=== PATIENT | female | born 1960 | race Caucasian/White ===

== ENCOUNTER 2024-03-03 13:05 | Outpatient (OUT) | payer BC, SELFPAY ==
--- NOTE | 2024-03-03 13:00 | CA_ITS ---
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 PVR waveforms with delayed upstroke, blunted amplitude and loss of dicrotic notch in the LLE. Right: - no significant pressure gradient between cuffs - normal SIMRAN Left: - significant pressure gradient between the thigh and calf cuff - significant pressure gradient between the calf and DP cuff - abnormal SIMRAN and TBI Impression: - normal arterial evaluation of the right lower extremity, without hemodynamic impairment of the right lower extremity at rest. 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 (left SIMRAN 0.58) Electronically Signed On 03-03-2024 22:22:10 EDT by REMINGTON BLOOM
== END 2024-03-03 13:06 | disposition home or self-care (01) ==
LOC: CARD 13:05
PROVIDERS: PCP Nurse Practitioner; Visit Provider Student in an Organized Health Care Education/Training Program
DX: Z48.89 Encounter for other specified surgical aftercare (principal)
CPT/HCPCS: 93923

== ENCOUNTER 2024-04-08 08:10 | Outpatient (OUT) | payer BC, SELFPAY ==
--- NOTE | 2024-04-08 | XR_ITS ---
The [address] [address] Patient Name: BETO EM MRN: [id number] date: 1960 Sex: F Assigned Patient Location: Current Patient Location: Accession/Order Number: [id number] Exam Date: 04/08/2024 13:30 Report Date: 04/09/2024 07:54 At the request of: BRANDON FORD Procedure: XR foot LT min 3V PROCEDURE: XR foot LT min 3V COMPARISON: None. HISTORY: LEFT FOOT PAIN FINDINGS: BONES:No fracture, acute abnormality, or significant arthropathy. SOFT TISSUES:Negative. No visible soft tissue swelling. EFFUSION:None visible. OTHER: Negative. XR/XR foot LT min 3V IMPRESSION: No acute radiographic abnormality Electronically authenticated by: EARL BENITEZ Date: 04/09/2024 07:54
== END 2024-04-08 08:11 | disposition home or self-care (01) ==
LOC: EC 08:11
PROVIDERS: PCP Nurse Practitioner; Visit Provider Physician Assistant
DX: M79.672 Pain in left foot (principal)
CPT/HCPCS: 73630

== ENCOUNTER 2024-08-03 07:06 | Outpatient (RCR) | payer BC, SELFPAY ==
--- NOTE | 2024-07-02 10:37 | PC.NURSE ---
Cardiac Rehab Orientation The following information was reviewed with the patient during Orientation: [ x] 1. Program rights and responsibilities [ x] 2. Attendance Policy [ x 3. Patients insurance coverage and copayment [ x] 4. Patients current medication list, and purpose for medications [ x] 5. Patients Qualifying diagnosis and procedure history [x ] 6. Patient health history Patients completed the following forms during Orientation: [ x] 1. Knowledge Test [ x] 2. PHQ 9 [x ] 3. SF 36 [x ] 4. Rate your plate [ ] 5. COPD Assessment [ ] 6. Tobacco Use and Dependence Questionnaire Additional Comments: Patient was informed of all of the following information as listed above. She is scheduled for her first visit beginning next week. Fax was sent to her provider updating them of her attendance to orientation.
--- NOTE | 2024-07-02 12:14 | CR1_ITS ---
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
--- NOTE | 2024-07-06 12:08 | CR1_ITS ---
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
--- NOTE | 2024-07-29 12:53 | CR1_ITS ---
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
--- NOTE | 2024-08-05 07:47 | CR1_ITS ---
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
== END 2024-08-05 07:48 | disposition home or self-care (01) ==
LOC: CR 07:06
PROVIDERS: PCP Family Medicine
DX: Z98.61 Coronary angioplasty status (principal)
CPT/HCPCS: 93798

== ENCOUNTER 2025-01-05 09:44 | Outpatient (OUT) | payer BC, SELFPAY ==
[2025-01-05 10:13] LABS: Chol HDL Ratio 1.8; Cholesterol 185 mg/dL (<=200); HDL Cholesterol 101 mg/dL (40-60); Triglycerides 50 mg/dL (<=150)
== END 2025-01-05 09:45 | disposition home or self-care (01) ==
LOC: LAB 09:44
PROVIDERS: PCP Family Medicine; Visit Provider Internal Medicine Cardiovascular Disease
DX: I25.10 Atherosclerotic heart disease of native coronary artery without angina pectoris (principal)
CPT/HCPCS: 36415; 80061

== ENCOUNTER 2025-02-14 16:06 | Outpatient (OUT) | payer BC, SELFPAY ==
[2025-02-14 16:27] LABS: Basophils Percent Auto 0.6 % (0.2-2.0); Eosinophils Absolute Auto 0.3 10^3/uL (0.0-0.7); Eosinophils Percent Auto 4.5 % (0.9-7.0); Hematocrit 30.4 % (36.0-48.0); Hemoglobin 9.4 g/dL (12.0-16.0); Immature Granulocytes Abs Auto 0.01 10^3/uL (0.00-0.03); Immature Granulocytes Pct Auto 0.2 % (0.0-0.5); Lymphocytes Absolute Auto 1.6 10^3/uL (1.2-3.8); Lymphocytes Percent Auto 25.3 % (20.5-60.0); Mean Corpuscular HGB Conc 30.9 g/dL (29.9-35.2); Mean Corpuscular Hemoglobin 25.6 pg (26.7-34.0); Mean Corpuscular Volume 82.8 fL (81.0-99.0); Mean Platelet Volume 9.2 fL (9.5-13.5); Monocytes Absolute Auto 0.7 10^3/uL (0.3-0.8); Monocytes Percent Auto 11.4 % (1.7-12.0); Neutrophils Absolute Auto 3.7 10^3/uL (1.4-6.5); Platelet Count 285 10^3/uL (150-450); Red Blood Count 3.67 10^6/uL (4.20-5.40); Red Cell Distribution Width 17.8 % (11.0-15.0); White Blood Count 6.4 10^3/uL (4.0-11.0)
[2025-02-14 16:42] LABS: Anion Gap 14.9; BUN Creatinine Ratio 26.7; Calcium 9.3 mg/dL (8.5-10.1); Carbon Dioxide 22.2 mmol/L (21.0-32.0); Chloride 102 mmol/L (98-107); Estimated GFR (African America >60 (>=60 mL/min/1.73m^2); Estimated GFR (Non-African Ame >60 (>=60 mL/min/1.73m^2); Glucose 87 mg/dL (74-106); Potassium 4.1 mmol/L (3.5-5.1); Sodium 135 mmol/L (136-145)
== END 2025-02-14 16:07 | disposition home or self-care (01) ==
PROVIDERS: PCP Family Medicine
DX: E78.5 Hyperlipidemia, unspecified (principal); I10 Essential (primary) hypertension; Z95.5 Presence of coronary angioplasty implant and graft
CPT/HCPCS: 36415; 80048; 85025

== ENCOUNTER 2025-02-18 21:42 | Emergency (ER) | payer BC, SELFPAY ==
--- OUTSIDE RECORDS SUMMARY | 2025-02-15 07:23 | XMS_ITS ---
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 Operator Name Role Phone RAIMUNDO CHOI Attending Unavailable BRII MARCH Referring Unavailable JANI NGUYEN Attending Unavailable RAIMUNDO CHOI Referring Unavailable JANI NGUYEN Attending Unavailable Kole, FELISA Lomas Attending Unavailable Kole, FELISA Lomas Attending Unavailable KRISTEL VASQUES Attending Unavailable Kole, FELISA Lomas Attending Unavailable Jani Nguyen S Admitting Unavailable Jani Nguyen Attending Unavailable Jani Nguyen S Referring Unavailable Napoleon Mason Attending Unavaila Napoleon Stauffer Referring Unavaila Napoleon Stauffer Admitting Unavaila ble Napoleon Mason Admitting Unavaila ble Napoleon Mason Consulting Unavaila Napoleon Stauffer Attending Unavaila Napoleon Stauffer Referring Unavaila Napoleon Stauffer Consulting Unavaila Napoleon Stauffer Consulting Unavaila Napoleon Stauffer Attending Unavaila Napoleon Stauffer Admitting Unavaila ble Napoleon Mason Attending Unavaila Napoleon Stauffer Admitting Unavaila ble Napoleon Mason Admitting Unavaila ble Kole, FELISA Lomas Referring Unavailable Christofferson, Napoleon D. Attending Unavaila ble NONE, XXXX Referring Unavailable MD Gaetano Abraham Attending Unavailable NONE, XXXX Referring Unavailable KENNETH Abreu Admitting Unavailable KENNETH Abreu Attending Unavailable NONE, XXXX Referring Unavailable MD Raza Morel Admitting Unavailable MD Raza Morel Attending Unavailable MD Raza Morel Admitting Unavailable MD Raza Morel Attending Unavailable MD Raza Morel Referring Unavailable PROBLEMS No Problem Records Found PROCEDURES No Procedure Records Found RESULTS DISCHARGE INSTRUCTIONS Observed: 025 7:23 AM Status: F Source: [facility] Discharge Instructions MARIA EM :1960 Visit Date:02/15/2025 Inpatient Discharge Instructions Your Care Team Admitting Physician - Raza Morel MD Referring Physician - Raza Morel MD Reason for Your Visit I25.10, I10, Z95.5 This Is Your Medications List acetaminophen (Tylenol 325 mg Tab) albuterol (Albuterol (Eqv-Proventil HFA) 90 mcg/inh inhalation aerosol) aspirin (aspirin 81 mg Oral EC Tab) atorvastatin (atorvastatin 80 mg Tab) brompheniramine/dextromethorphan/PSE (Bromfed DM oral syrup) clopidogrel (clopidogrel 75 mg Tab) diltiazem (DilTIAZem (Eqv-Cardizem CD) 120 mg/24 hours oral capsule, extended release) fluticasone nasal (Xhance 93 mcg/inh nasal spray) losartan (losartan 25 mg Tab) metoprolol (Lopressor 25 mg oral tablet) montelukast (montelukast 10 mg Tab) Procedure History PCI - Percutaneous coronary intervention (02/15/2025), Excision of lesion of skin (05/26/2024), Cardiac catheterization, left heart (04/23/2024), PCI - Percutaneous coronary intervention (04/23/2024), Angiography of artery of left lower extremity (12/29/2023), section (04/12/1993). Discharge Vitals Height 167 cm Height 167 cm Weight 58 kg Weight 58 kg BMI 20.8 What to do next Previously Scheduled Follow-Up Appointments 2024 3:45 PM EDT With: Maria Teresa YE, Raza Croft [facility] New Follow Up Appointments after Discharge Follow Up with Raza Morel When: 03/03/2025 03:45 PM EDT Comments: Appointment has already been scheduled Please call if you need to reschedule Where: [address] [place] [address] [place] [address] [phone] [facility] (1) Follow Up with Sonja Sharif When: In 0 days Medications What How Much When Why Instructions Next Dose Unchanged acetaminophen (Tylenol 325 mg Tab) 500 Milligram By Mouth Every 4 hours as needed for Pain/Fever Unchanged albuterol (Albuterol (Eqv-Proventil HFA) 90 mcg/ inh inhalation aerosol) See instructions INHALE 2 PUFFS BY MOUTH EVERY 4 HOURS NEEDED Unchanged aspirin (aspirin 81 mg Oral EC Tab) 1 Tablets By Mouth Every day Unchanged atorvastatin (atorvastatin 80 mg Tab) 1 Tablets By Mouth Every day TAKE ONE TABLET BY MOUTH DAILY Unchanged brompheniramine/ dextromethorphan/ PSE (Bromfed DM oral syrup) 5 Milliliter By Mouth 4 times a day as needed for for cough and congestion Sinusitis Smoking trying to quit BMI 21.0-21.9, adult Unchanged clopidogrel (clopidogrel 75 mg Tab) 1 Tablets By Mouth Every day TAKE ONE TABLET BY MOUTH DAILY Unchanged diltiazem (DilTIAZem (Eqv-Cardizem CD) 120 mg/ 24 hours oral capsule, extended release) See instructions TAKE ONE CAPSULE BY MOUTH ONCE DAILY Unchanged fluticasone nasal (Xhance 93 mcg/ inh nasal spray) 2 Sprays Nasal Inhalation 2 times a day INSTILL 2 SPRAYS (1 SPRAY IN EACH NOSTRIL) TWICE A DAY FOR 30 DAYS Unchanged losartan (losartan 25 mg Tab) 1 Tablets By Mouth Every day TAKE ONE TABLET BY MOUTH ONCE DAILY Unchanged metoprolol (Lopressor 25 mg oral tablet) 1 Tablets By Mouth 2 times a day TAKE ONE TABLET BY MOUTH TWICE A DAY Unchanged montelukast (montelukast 10 mg Tab) 1 Tablets By Mouth At bedtime TAKE ONE TABLET BY MOUTH ONCE DAILY Allergies No Known Medication Allergies Problems Ongoing - Any problem that you are currently receiving treatment for. Changes in skin texture Essential hypertension Fatigue Hyperlipidemia Left foot pain Left shoulder pain Screening for thyroid disorder Severe claudication Sinusitis Smoker Smoking trying to quit Devices Implanted/Removed This Visit Notice: You have devices implanted this visit that may not be MRI compatible. Implanted PCI of RCA Right Coronary Artery Radhancshilo Mullen 02/15/2025 Body Site Undefined Radhancshilo Mullen 02/15/2025 [employer] [place], [place] Cardiovascular PCI DISCHARGE INSTRUCTIONS Diet: ??? Resume pre-procedure diet. ??? Increase water intake the next 2 days to flush dye out of the body. Activity: If radial access: ??? Limit your activity today. Do not operate a vehicle, machinery or power tools. ??? NO LIFTING OVER 3 POUNDS for 3 days. ??? Do not bend your wrist for 24 hours. ??? May resume driving in 24 hours. ??? Let pain/discomfort guide your activity. If you are having pain, stop. ??? No sexual activity for 1 week. ??? Return to the Emergency Room if you have trouble breathing, walking or nausea and vomiting. Medications: ??? Resume pre-procedure medication, unless otherwise directed. ??? Minimal pain, soreness and/or discomfort is expected. ??? If you are prescribed an aspirin and/or antiplatelet (such as Plavix, Brilinta or Effient) do NOT stop taking these medications for any reason without talking to your packaging line operator Site Care: ??? Do not remove dressing for 24 hours unless it becomes saturated, then replace. ??? Keep site clean and dry; inspect site daily. ??? Do not use any lotions, powders, or ointments at the groin or wrist site for 1 week. ??? May shower 24 hours after the procedure. Clean site with soap and water. Pat dry and apply band aid. No tub baths, swimming or hot tubs for 3 days. Post Procedure: ??? Soreness and tenderness to the site can last up to one week. ??? Bruising may occur to site. ??? A responsible adult should be with you for the first 24 hours after you arrive home. ??? Keep follow-up appointment. ??? Carry your stent card with you at all times. This provides information about your heart disease for any doctor who cares for you. ??? No smoking for 24 hours as it increases the risk of developing blood clots. ??? If you are interested in smoking cessation, contact [facility] [facility] [place] [phone], ext. [phone]. ??? In the event you are unable to reach your physician, please call [facility] at [phone] and the boat dock operator will assist you. Seek Medicare Care for: ??? Bleeding: Apply continuous pressure to the site and Call 911. ??? Should the arm or leg become cold, numb, blue or white call your physician immediately. ??? Signs of infection are redness, warmth, swelling, getting more sore, colored drainage, fever or chills ??? Chest pain ??? Blood in your urine or stool ??? Black tarry stools Common Emergency Awareness Tips IS IT A STROKE? Act FAST and Check for these signs: FACE Does the face look uneven? ARM Does one arm drift down? SPEECH Does their speech sound strange? TIME Call at any sign of stroke Heart Attack Signs Chest discomfort: Most heart attacks involve discomfort in the center of the chest and lasts more than a few minutes, or goes away and comes back. It can feel like uncomfortable pressure, squeezing, fullness or pain. Discomfort in upper body: Symptoms can include pain or discomfort in one or both arms, back, neck, jaw or stomach. Shortness of breath: With or without discomfort. Other signs: Breaking out in a cold sweat, nausea, or lightheaded. Remember, MINUTES DO MATTER. If you experience any of these heart attack warning signs, call to get immediate medical attention! Patient Survey You may receive a survey in the mail asking you about your stay with us. We want to hear from you, please share your experience with us by completing your survey. Thank you for choosing [facility]. Leodan Award Nomination The LEODAN (Diseases Attacking the Immune SYstem) Award is an international recognition program that honors and celebrates the skillful, compassionate care nurses provide every day. Anyone who experiences or observes amazing care being provided by a nurse is encouraged to submit a nomination. To nominate your nurse, use your smart phone to scan the QR code below. Patient Portal You may access all of your results and other medical record information on our secure patient portal. If you are not signed up for this yet, please contact [employer] Information Management at [phone] to get signed up today. Patient Name: MARIA EM I have received these discharge instructions and my questions have been answered. Patient/Car Seat Coverer Name: Patient/Car Seat Coverer Signature: Relationship to Patient: Witness Name/Signature: Date: Result Comment: Electronical ly Signed By: Bandar SCHROEDER, Cardio, Giana\.br\Date and Time Signed: 02/18/25 11:43 EDT DISCHARGE INSTRUCTIONS Observed: 025 7:23 AM Status: UNK Source: [facility] Discharge Instructions MAIRA EM :1960 Visit Date:02/15/2025 Inpatient Discharge Instructions Your Care Team Admitting Physician - Raza Morel MD Referring Physician - Raza Morel MD Reason for Your Visit I25.10, I10, Z95.5 This Is Your Medications List acetaminophen (Tylenol 325 mg Tab) albuterol (Albuterol (Eqv-Proventil HFA) 90 mcg/inh inhalation aerosol) aspirin (aspirin 81 mg Oral EC Tab) atorvastatin (atorvastatin 80 mg Tab) brompheniramine/dextromethorphan/PSE (Bromfed DM oral syrup) clopidogrel (clopidogrel 75 mg Tab) diltiazem (DilTIAZem (Eqv-Cardizem CD) 120 mg/24 hours oral capsule, extended release) fluticasone nasal (Xhance 93 mcg/inh nasal spray) losartan (losartan 25 mg Tab) metoprolol (Lopressor 25 mg oral tablet) montelukast (montelukast 10 mg Tab) Procedure History PCI - Percutaneous coronary intervention (02/15/2025), Excision of lesion of skin (05/26/2024), Cardiac catheterization, left heart (04/23/2024), PCI - Percutaneous coronary intervention (04/23/2024), Angiography of artery of left lower extremity (12/29/2023), section (04/12/1993). Discharge Vitals Height 167 cm Height 167 cm Weight 58 kg Weight 58 kg BMI 20.8 What to do next Previously Scheduled Follow-Up Appointments 2024 3:45 PM EDT With: Maria Teresa YE, Raza Croft Where: [facility] New Follow Up Appointments after Discharge Follow Up with Raza Morel When: 03/03/2025 03:45 PM EDT Comments: Appointment has already been scheduled Please call if you need to reschedule Where: [address] [place] [phone] [facility] (1) Follow Up with Sonja Sharif When: In 0 days Medications What How Much When Why Instructions Next Dose Unchanged acetaminophen (Tylenol 325 mg Tab) 500 Milligram By Mouth Every 4 hours as needed for Pain/Fever Unchanged albuterol (Albuterol (Eqv-Proventil HFA) 90 mcg/ inh inhalation aerosol) See instructions INHALE 2 PUFFS BY MOUTH EVERY 4 HOURS NEEDED Unchanged aspirin (aspirin 81 mg Oral EC Tab) 1 Tablets By Mouth Every day Unchanged atorvastatin (atorvastatin 80 mg Tab) 1 Tablets By Mouth Every day TAKE ONE TABLET BY MOUTH DAILY Unchanged brompheniramine/ dextromethorphan/ PSE (Bromfed DM oral syrup) 5 Milliliter By Mouth 4 times a day as needed for for cough and congestion Sinusitis Smoking trying to quit BMI 21.0-21.9, adult Unchanged clopidogrel (clopidogrel 75 mg Tab) 1 Tablets By Mouth Every day TAKE ONE TABLET BY MOUTH DAILY Unchanged diltiazem (DilTIAZem (Eqv-Cardizem CD) 120 mg/ 24 hours oral capsule, extended release) See instructions TAKE ONE CAPSULE BY MOUTH ONCE DAILY Unchanged fluticasone nasal (Xhance 93 mcg/ inh nasal spray) 2 Sprays Nasal Inhalation 2 times a day INSTILL 2 SPRAYS (1 SPRAY IN EACH NOSTRIL) TWICE A DAY FOR 30 DAYS Unchanged losartan (losartan 25 mg Tab) 1 Tablets By Mouth Every day TAKE ONE TABLET BY MOUTH ONCE DAILY Unchanged metoprolol (Lopressor 25 mg oral tablet) 1 Tablets By Mouth 2 times a day TAKE ONE TABLET BY MOUTH TWICE A DAY Unchanged montelukast (montelukast 10 mg Tab) 1 Tablets By Mouth At bedtime TAKE ONE TABLET BY MOUTH ONCE DAILY Allergies No Known Medication Allergies Problems Ongoing - Any problem that you are currently receiving treatment for. Changes in skin texture Essential hypertension Fatigue Hyperlipidemia Left foot pain Left shoulder pain Screening for thyroid disorder Severe claudication Sinusitis Smoker Smoking trying to quit Devices Implanted/Removed This Visit Notice: You have devices implanted this visit that may not be MRI compatible. Implanted PCI of RCA Right Coronary Artery [employer] 02/15/2025 Body Site Undefined [employer]ience [employer] 02/15/2025 [employer] [place], [place] Cardiovascular PCI DISCHARGE INSTRUCTIONS Diet: ??? Resume pre-procedure diet. ??? Increase water intake the next 2 days to flush dye out of the body. Activity: If radial access: ??? Limit your activity today. Do not operate a vehicle, machinery or power tools. ??? NO LIFTING OVER 3 POUNDS for 3 days. ??? Do not bend your wrist for 24 hours. ??? May resume driving in 24 hours. ??? Let pain/discomfort guide your activity. If you are having pain, stop. ??? No sexual activity for 1 week. ??? Return to the Emergency Room if you have trouble breathing, walking or nausea and vomiting. Medications: ??? Resume pre-procedure medication, unless otherwise directed. ??? Minimal pain, soreness and/or discomfort is expected. ??? If you are prescribed an aspirin and/or antiplatelet (such as Plavix, Brilinta or Effient) do NOT stop taking these medications for any reason without talking to your packaging line operator Site Care: ??? Do not remove dressing for 24 hours unless it becomes saturated, then replace. ??? Keep site clean and dry; inspect site daily. ??? Do not use any lotions, powders, or ointments at the groin or wrist site for 1 week. ??? May shower 24 hours after the procedure. Clean site with soap and water. Pat dry and apply band aid. No tub baths, swimming or hot tubs for 3 days. Post Procedure: ??? Soreness and tenderness to the site can last up to one week. ??? Bruising may occur to site. ??? A responsible adult should be with you for the first 24 hours after you arrive home. ??? Keep follow-up appointment. ??? Carry your stent card with you at all times. This provides information about your heart disease for any doctor who cares for you. ??? No smoking for 24 hours as it increases the risk of developing blood clots. ??? If you are interested in smoking cessation, contact [facility] [place] [phone], ext. [phone]. ??? In the event you are unable to reach your physician, please call [facility] at [phone] and the boat dock operator will assist you. Seek Medicare Care for: ??? Bleeding: Apply continuous pressure to the site and Call 911. ??? Should the arm or leg become cold, numb, blue or white call your physician immediately. ??? Signs of infection are redness, warmth, swelling, getting more sore, colored drainage, fever or chills ??? Chest pain ??? Blood in your urine or stool ??? Black tarry stools Common Emergency Awareness Tips IS IT A STROKE? Act FAST and Check for these signs: FACE Does the face look uneven? ARM Does one arm drift down? SPEECH Does their speech sound strange? TIME Call at any sign of stroke Heart Attack Signs Chest discomfort: Most heart attacks involve discomfort in the center of the chest and lasts more than a few minutes, or goes away and comes back. It can feel like uncomfortable pressure, squeezing, fullness or pain. Discomfort in upper body: Symptoms can include pain or discomfort in one or both arms, back, neck, jaw or stomach. Shortness of breath: With or without discomfort. Other signs: Breaking out in a cold sweat, nausea, or lightheaded. Remember, MINUTES DO MATTER. If you experience any of these heart attack warning signs, call to get immediate medical attention! Patient Survey You may receive a survey in the mail asking you about your stay with us. We want to hear from you, please share your experience with us by completing your survey. Thank you for choosing [facility]. Leodan Award Nomination The LEODAN (Diseases Attacking the Immune SYstem) Award is an international recognition program that honors and celebrates the skillful, compassionate care nurses provide every day. Anyone who experiences or observes amazing care being provided by a nurse is encouraged to submit a nomination. To nominate your nurse, use your smart phone to scan the QR code below. Patient Portal You may access all of your results and other medical record information on our secure patient portal. If you are not signed up for this yet, please contact [employer] at [phone] to get signed up today. Patient Name: MARIA EM I have received these discharge instructions and my questions have been answered. Patient/Car Seat Coverer Name: Patient/Car Seat Coverer Signature: Relationship to Patient: Witness Name/Signature: Date: Result Comment: Electronical ly Signed By: Bandar SCHROEDER, Cardio, Giana\.br\Date and Time Signed: 02/15/25 14:17 EDT Other Comment: duplicated OPERATIVE REPORT Observed: 02/15/2025 7:23 AM Status: F Source: [facility] Operative Report Left heart catheterization procedure report DATE OF PROCEDURE: February 15, 2025 PLATFORM MATERIAL HANDLING SUPERVISOR Raza Morel MD [facility] FSC[facility] INDICATION: Exertional fatigue; history LAD PCI was due to have staged PCI of right coronary artery now back 1 year later BRIEF HISTORY: 64-year-old female chronic smoker hypertension history of percutaneous Rx LAD with residual right coronary disease high-grade back for staged intervention has had progressive intermittent fatigue PROCEDURE(S) PERFORMED: Left Heart Catheterization Selective Coronary Angiography Moderate Sedation PRE-PROCEDURAL INFORMED CONSENT: The procedure and conscious sedation were discussed in detail with the patient/next of kin/durable power of including the indications, expected outcomes, potential treatment options based upon the results, alternative treatment options and benefits, risks and possible complications associated with the procedure. The patient/next of kin/durable power of expressed an understanding of the information provided and willingness to proceed. Signed, informed consent for the procedure was obtained for all of the above. DESCRIPTION OF THE PROCEDURE: In the postabsorptive state, the patient was brought to the Adult Cardiac Counseling Aide and placed on the table. The planned puncture sites/areas were prepped and draped in usual sterile fashion and a safety time-out was performed. Moderate Sedation was given by the Cardiac Counseling Aide RN. RIGHT RADIAL ARTERY ACCESS: The puncture site was infiltrated with 1% lidocaine. The modified Seldinger technique was performed to access the right radial artery using a 21G needle radial access kit. A wire was threaded into the radial artery followed by upsizing to a 5/6F slender 10cm sheath. Verapamil 2.5 mg was administered into the sheath. The sheath was then flushed with heparinized saline and IV UFH was administered via peripheral IV by the engineering lab technician RN after the catheter crossed into the ascending aorta. Selective left and right coronary artery angiography : Under fluoroscopic guidance, a 6 [place] diagnostic catheter was then advanced over the 0.035 260cm J- tipped guidewire to the level of the aortic valve to engage the left coronary artery. Multiple orthogonal images were obtained. The JR4 diagnostic catheter was then be used to selectively engage the RCA ostium and angiographic images under multiple projections were obtained. 5 F pigtail diagnostic catheter was advanced over the guidewire across the Aortic valve and into the left ventricle. Hemodynamic measurements were then obtained. Left ventriculography was performed. The pigtail catheter was then pulled back into the ascending aorta for assessment of LV-Ao gradient. The procedure was concluded by removal of all the catheters, wires and sheaths. Accesses were managed as outlined below. No immediate complications COMPLICATIONS: None ESTIMATED BLOOD LOSS: <50cc CONTRAST ADMINISTERED: Please see Adult Cardiac Counseling Aide Log for further details FINDINGS: SELECTIVE CORONARY ANGIOGRAPHY: Right dominant System Left Main: Moderately calcified no atherosclerotic obstructive coronary disease seen LAD: Moderate proximal mid left anterior descending calcification widely patent LAD stent proximally. D1: 30% ostial narrowing LCx: 20% proximal left circumflex atherosclerosis OM1: No angiographically visible disease Ramus Intermedius: Small vessel patent RCA: 80% proximal right coronary stenosis hazy eccentric plaque in the mid right coronary artery of at least 80%, both are sites for intervention today. rPDA: Moderate calcification no obstructive disease noted rPLB: No obstructive disease noted LEFT HEART CATHETERIZATION: LVEDP: 17 mmHg, consistent with noncompliant left ventricle LV EJECTION FRACTION and WALL MOTION: In the PINTO projection estimated left ventricular ejection fraction there are no regional wall motion abnormalities seen. There is no mitral regurgitation seen. There is no mitral regurgitation seen. There is no aortic stenosis noted on pullback from left ventricle to aorta. ACCESS MANAGEMENT: Primary: Right Radial Artery: Vasc Band; successful hemostasis achieved. Interventional report: A 6 [place] JR guiding catheter placed the ostium of the right coronary artery. The patient received 4000's of IV heparin. She has been taking her daily Plavix. There are no missed doses. She received full dose aspirin. ACT was maintained R around 250 ms at all times. I utilized 182 cm whisper wire to cross the proximal mid right coronary stenoses. We predilated the mid and proximal right coronary stenoses with a 3.0 x 15 mm Emerge balloon at 12 timbo for 30 seconds x 2 in the mid and proximal vessel. There appears to be Dissection nonflow limiting in the mid right coronary artery and haziness at the proximal right coronary stenosis site again the right coronary artery is heavily calcified in its proximal mid and distal portions. She is a heavy smoker. Next we stented the mid right coronary artery with a 3.0 x 18 mm Xience stent at 12 timbo for 30 seconds. This was postdilated in the usual fashion. The proximal right coronary artery was stented with a 3.0 x 12 mm Xience stent at 12 timbo for 30 seconds. We then posted the proximal right coronary stent with a 3.25 x 12 mm emerge NC balloon at 20 timbo for 30 seconds x 1. Subsequent angiography revealed excellent PARUL grade III flow at both sites of intervention however there appeared to be some dye streaming artifact proximally with lesion noted posterior to the stent. Intravascular ultrasound was deployed to further evaluate stent expansion in the proximal right coronary artery. Intravascular ultrasound revealed well apposed stent with heavy calcification and plaque burden behind the stent in the proximal right coronary artery. There is no dissection noted. CONCLUSIONS: 1. elevated left ventricular end-diastolic pressure consistent with noncompliant left ventricle 2. Hypertension 3. Successful stenting of the mid right coronary artery with a 3.0 x 18 mm Xience stent 4. Successful intravascular stenting of the proximal right coronary artery with 3.0 x 18 mm Xience stent postdilated to 3.25 mm. Well apposed stent proximally with no dissection by IVUS. RECOMMENDATIONS: Guideline directed medical therapy aspirin lifelong statin lifelong angiotensin receptor blockade as blood pressure allows smoking cessation counseling has been offered and will reinforce in the outpatient setting Standard post-cath management as per hospital protocol Cardiovascular Risk Factor modification Result Comment: Electronical ly Signed By: Maria Teresa YE, Raza Pan.br\Date and Time Signed: 02/15/25 10:16 EDT PROGRESS NOTE-PHYSICIAN Observed: 2024 7:23 AM Status: F Source: [facility] Progress Note-Physician Airway Assessment: Class II: Visualization of the soft palate, fauces, uvula Airway Abnormalities: none ASA Classification: ASA 2: A patient with mild systemic disease Risks/Benefits of IV Sedation: Have been explained IV Sedation Plan: Patient agrees to IV sedation plan_ Result Comment: Electronical ly Signed By: Maria Teresa YE, Raza Milian\Date and Time Signed: 02/15/25 08:15 EDT HEART AND VASCULAR OFFICE/CLINIC NOTE Observed: 02/07/2025 1:46 PM Status: F Source: [facility] Heart and Vascular Office/ inic Note Chief Complaint 4 month follow up HLD, HTN, CAD History of Present Illness Patient is a very pleasant 64-year-old chronic smoker with a history of LAD stenosis which has been stented x 2 she had residual 90% stenosis of her proximal right coronary artery there was talk about 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 Risks and benefits of heart catheterization were explained to the patient and the patient agreed freely to proceed. These risks include stroke heart attack kidney dysfunction which can need to be temporary or permanent from the contrast used. Review of Systems Constitutional: no fever, no sweats, no weakness Skin: no rash, no lesions, nobruising/petechiae ENMT: no sore throat, no congestion, no hoarseness Respiratory: no shortness of breath, no cough, no orthopnea, no wheezing Cardiovascular: no chest pain, no palpitations, no edema Gastrointestinal: no nausea, no vomiting, no diarrhea, no GI bleeding Genitourinary: no anuria/oliguria no hematuria Musculoskeletal: no back pain, no trauma Neurologic: no headache, no dizziness, no numbness, no weakness Psychiatric: no sleeping problems, no irritability, no anxiety/depression. Heme/Lymph: no bleeding tendency, no bruising tendency Allergy/Immunologic: no recurrent infections, no impaired immunity Additional ROS info: Except as noted in the above Review of Systems and in the History of Present Illness all other systems have been reviewed and are negative or noncontributory. Physical Exam Vitals & Measurements HR: 69(Peripheral) RR: 17 BP: 150/77 SpO2: 99% General: alert, no acute distress Skin: warm, dry intact Head: atraumatic, normocephalic Neck: Trachea midline, no JVD, no bruit Eye: normal conjunctiva, sclera clear ENMT: oral mucosa moist Cardiovascular: regular rate and rhythm, nomurmur normal peripheral perfusion Respiratory: Lungs CTA, respirations non labored Chest wall: no deformity. Gastrointestinal: soft, non distended, no tenderness, no guarding. Back: No tenderness, Normal ROM, Normal alignment. Extremities: no edema, no deformity, no trauma Neurological: oriented x 4, LOC appropriate for agesensation equal & normal bilaterally, speech normal Psychiatric: cooperative, affect appropriate for age, normal judgement, normal psychiatric thoughts. Assessment/Plan 1. Essential hypertension (I10: Essential (primary) hypertension) 2. Hyperlipidemia (E78.5: Hyperlipidemia, unspecified) 3. Status post insertion of drug-eluting stent into left anterior descending (LAD) artery (Z95.5: Presence of coronary angioplasty implant and graft) Residual high-grade disease proximal right coronary artery; staged PCI of right coronary artery. Smoking cessation counseling offered to the patient. Follow-up No qualifying data available Problem List/Past Medical History Ongoing Changes in skin texture Essential hypertension Fatigue Hyperlipidemia Left foot pain Left shoulder pain Screening for thyroid disorder Severe claudication Sinusitis Smoker Smoking trying to quit Historical No qualifying data Procedure/Surgical History Excision of lesion of skin (05/26/2024), Cardiac catheterization, left heart (04/23/2024), PCI - Percutaneous coronary intervention (04/23/2024), Angiography of artery of left lower extremity (12/29/2023), section (04/12/1993). Medications Albuterol (Eqv-Proventil HFA) 90 mcg/inh inhalation aerosol, See Instructions aspirin 81 mg Oral EC Tab, 81 mg= 1 tab(s), Oral, Daily, 3 refills atorvastatin 80 mg Tab, 80 mg= 1 tab(s), Oral, Daily, 3 refills Bromfed DM oral syrup, 5 mL, Oral, QID, PRN clopidogrel 75 mg Tab, 75 mg= 1 tab(s), Oral, Daily, 1 refills DilTIAZem (Eqv-Cardizem CD) 120 mg/24 hours oral capsule, extended release, See Instructions Lopressor 25 mg oral tablet, 25 mg= 1 tab(s), Oral, BID, 1 refills losartan 25 mg Tab, 25 mg= 1 tab(s), Oral, Daily, 1 refills montelukast 10 mg Tab, 10 mg= 1 tab(s), Oral, Bedtime, 4 refills Tylenol 325 mg Tab, 500 mg, Oral, q4hr, PRN Xhance 93 mcg/inh nasal spray, 2 spray(s), Nasal, BID, 5 refills Allergies No Known Medication Allergies Social History Alcohol - Low Risk, 12/24/2022 Current. Beer. 1-2 times per week., 08/03/2024 Substance Abuse - Denies Substance Abuse, 12/24/2022 Never., 08/03/2024 Tobacco - Medium Risk, 12/24/2022 5-9 cigarettes (between 1/4 to 1/2 pack)/day in last 30 days, Smoker, current status unknown Tobacco Use:., 09/27/2024 Family History Bipolar: Mother. Hypertension: Father. Renal failure syndrome: Mother. Immunizations Vaccine Date Status Comments influenza virus vaccine, inactivated - Not Given Patient Refuses SARS-CoV-2 (COVID-19) mRNA BNT-162b2 vax 08/29/2021 Recorded 2022-12-23: TPV60 SARS-CoV-2 (COVID-19) mRNA BNT-162b2 vax 12/01/2020 Recorded SARS-CoV-2 (COVID-19) mRNA BNT-162b2 vax 11/10/2020 Recorded influenza, whole 07/15/2007 Recorded hepatitis B adult vaccine 08/30/2005 Recorded hepatitis B adult vaccine 05/31/2005 Recorded hepatitis B adult vaccine 04/29/2005 Recorded Result Comment: Electronical ly Signed By: Maria Teresa YE, Raza Pan.br\Date and Time Signed: 02/07/25 15:04 EDT FAMILY MEDICINE OFFICE/CLINI C NOTE Observed: 11/19/2024 11:29 AM Status: F Source: [facility] Family Medicine Office/Clini c Note HPI Staff Maria is a 64 year old female presenting for acute sick visit Respiratory C/O: Onset: 2 days Body aches: yes Chest congestion: yes Chills: no Cough: yes Sputum production: yes Sore throat: no Ear complaints: no Eye itching/watering: no Fever: no Headache: yes Nasal congestion: yes Nasal discharge: yes Poor appetite: no Reduced activity: yes Sinus pain/pressure: yes Sneezing: yes Wheezing: yes denies SOB Ill contacts: yes everyone in household positive for influenza A Remedies tried: Tylenol, Mucinex, Questions/Concerns: Pt denies wanting to be swabbed for influenza History of Present Illness pt presents today for URI symptoms Review of Systems PHQ Score Initial Depression Screen Score: 0 SCORE Physical Exam Vitals & Measurements T: 36.4 ???C(Tympanic) HR: 86(Peripheral) RR: 18 BP: 120/80 SpO2: 98% HT: 66 in HT: 167.0 cm WT: 59.1 kg WT: 130.293 lb BMI: 21.19 General: alert, no acute distress ENMT: oral mucosa moist, no pharyngeal erythema or exudate, RADHA TM full of clear fluid, nasal turbinates red and swollen, sinus tenderness Cardiovascular: regular rate and rhythm, normal peripheral perfusion Respiratory: Lungs CTA, respirations non labored Extremities: no deformity, no trauma Neurological: oriented x 4, LOC appropriate for age, CN II-XII intact, motor strength equal & normal bilaterally, speech normal Assessment/Plan 1. Sinusitis (J32.9: Chronic sinusitis, unspecified) sinus tenderness, nasal congestion. will treat with augmentin and bromfed Ordered: amoxicillin-clavulanate, = 1 tab(s), Oral, q12hr, X 7 day(s), # 14 tab(s), Refills(s) 0, Pharmacy: [facility], 167, cm, 11/19/24 11:22:00 EST, Height/Length Dosing, 59.1, kg, 11/19/24 11:22:00 EST, Weight Dosing brompheniramine/dextromethorphan/PSE, 5 mL, Oral, QID for cough and congestion, 200 mL, Refill(s) 0, [facility], 167, cm, 11/19/24 11:22:00 EST, Height/Length Dosing, 59.1, kg, 11/19/24 11:22:00 EST, Weight Dosing 2. Smoking trying to quit (Z72.0: Tobacco use) continue trying to quit Ordered: amoxicillin-clavulanate, = 1 tab(s), Oral, q12hr, X 7 day(s), # 14 tab(s), Refills(s) 0, Pharmacy: [facility], 167, cm, 11/19/24 11:22:00 EST, Height/Length Dosing, 59.1, kg, 11/19/24 11:22:00 EST, Weight Dosing brompheniramine/dextromethorphan/PSE, 5 mL, Oral, QID for cough and congestion, 200 mL, Refill(s) 0, [facility], 167, cm, 11/19/24 11:22:00 EST, Height/Length Dosing, 59.1, kg, 11/19/24 11:22:00 EST, Weight Dosing 3. BMI 21.0-21.9, adult (Z68.21: Body mass index [BMI] 21.0-21.9, adult) BMI education given Ordered: amoxicillin-clavulanate, = 1 tab(s), Oral, q12hr, X 7 day(s), # 14 tab(s), Refills(s) 0, Pharmacy: [facility], 167, cm, 11/19/24 11:22:00 EST, Height/Length Dosing, 59.1, kg, 11/19/24 11:22:00 EST, Weight Dosing brompheniramine/dextromethorphan/PSE, 5 mL, Oral, QID for cough and congestion, 200 mL, Refill(s) 0, [facility], 167, cm, 11/19/24 11:22:00 EST, Height/Length Dosing, 59.1, kg, 11/19/24 11:22:00 EST, Weight Dosing Follow-up No qualifying data available Problem List/Past Medical History Ongoing Changes in skin texture Essential hypertension Fatigue Hyperlipidemia Left foot pain Left shoulder pain Screening for thyroid disorder Severe claudication Sinusitis Smoker Smoking trying to quit Historical No qualifying data Procedure/Surgical History Excision of lesion of skin (05/26/2024), Cardiac catheterization, left heart (04/23/2024), PCI - Percutaneous coronary intervention (04/23/2024), Angiography of artery of left lower extremity (12/29/2023), section (04/12/1993). Medications Albuterol (Eqv-Proventil HFA) 90 mcg/inh inhalation aerosol, See Instructions aspirin 81 mg Oral EC Tab, 81 mg= 1 tab(s), Oral, Daily, 3 refills atorvastatin 80 mg Tab, 80 mg= 1 tab(s), Oral, Daily, 3 refills Augmentin 875 mg oral tablet, 1 tab(s), Oral, q12hr Bromfed DM oral syrup, 5 mL, Oral, QID, PRN clopidogrel 75 mg Tab, 75 mg= 1 tab(s), Oral, Daily, 1 refills DilTIAZem (Eqv-Cardizem CD) 120 mg/24 hours oral capsule, extended release, See Instructions, 3 refills Lopressor 25 mg oral tablet, 25 mg= 1 tab(s), Oral, BID, 1 refills losartan 25 mg Tab, 25 mg= 1 tab(s), Oral, Daily, 1 refills montelukast 10 mg Tab, 10 mg= 1 tab(s), Oral, Bedtime, 4 refills Tylenol 325 mg Tab, 500 mg, Oral, q4hr, PRN Xhance 93 mcg/inh nasal spray, 2 spray(s), Nasal, BID, 5 refills Allergies No Known Medication Allergies Social History Alcohol - Low Risk, 12/24/2022 Current. Beer. 1-2 times per week., 08/03/2024 Substance Abuse - Denies Substance Abuse, 12/24/2022 Never., 08/03/2024 Tobacco - Medium Risk, 12/24/2022 5-9 cigarettes (between 1/4 to 1/2 pack)/day in last 30 days, Smoker, current status unknown Tobacco Use:., 09/27/2024 Family History Bipolar: Mother. Hypertension: Father. Renal failure syndrome: Mother. Immunizations Vaccine Date Status Comments influenza virus vaccine, inactivated - Not Given Patient Refuses SARS-CoV-2 (COVID-19) mRNA BNT-162b2 vax 08/29/2021 Recorded 2022-12-23: TPV60 SARS-CoV-2 (COVID-19) mRNA BNT-162b2 vax 12/01/2020 Recorded SARS-CoV-2 (COVID-19) mRNA BNT-162b2 vax 11/10/2020 Recorded influenza, whole 07/15/2007 Recorded hepatitis B adult vaccine 08/30/2005 Recorded hepatitis B adult vaccine 05/31/2005 Recorded hepatitis B adult vaccine 04/29/2005 Recorded Result Comment: Electronical ly Signed By: Sonja Staley.br\Date and Time Signed: 11/19/24 11:29 EST AMBULATORY VISIT SUMMARY Observed: 09/27 1:17 PM Status: F Source: [facility] Ambulatory Visit Summary MARIA EM :1960 Visit Date:09/27/2024 Ambulatory Visit Instructions Your Diagnosis Sinusitis Smoker BMI 20.0-20.9, adult Your Care Team Attending Physician - KRISTEL VAQSUES CNP Primary Care Physician - Brii March MD This Is Your Medications List acetaminophen (Tylenol 325 mg Tab) albuterol (Albuterol (Eqv-Proventil HFA) 90 mcg/inh inhalation aerosol) aspirin (aspirin 81 mg Oral EC Tab) atorvastatin (atorvastatin 80 mg Tab) azithromycin (azithromycin 250 mg Tab) clopidogrel (clopidogrel 75 mg Tab) diltiazem (DilTIAZem (Eqv-Cardizem CD) 120 mg/24 hours oral capsule, extended release) fluticasone nasal (Xhance 93 mcg/inh nasal spray) losartan (losartan 25 mg Tab) metoprolol (Lopressor 25 mg oral tablet) montelukast (montelukast 10 mg Tab) Procedures Performed Excision of lesion of skin (05/26/2024), Cardiac catheterization, left heart (04/23/2024), PCI - Percutaneous coronary intervention (04/23/2024), Angiography of artery of left lower extremity (12/29/2023), section (04/12/1993). Discharge Vitals Temperature (Oral) 36.7 ???C Heart Rate (Peripheral) 72 Respiratory Rate 18 Blood Pressure 124/84 Height 167.0 cm Height 66 in Weight 57.8 kg Weight 127.427 lb BMI 20.73 What to do next Scheduled Follow-Up Appointments Friday 9:00 AM EST With: Jarad YE, Gaetano Rios Where: [facility] Medications What How Much When Why Instructions New azithromycin (azithromycin 250 mg Tab) 1 Packets By Mouth As Directed Sinusitis Duration: 5 Days as directed on package labeling Pickup at [id number] Unchanged acetaminophen (Tylenol 325 mg Tab) 500 Milligram By Mouth Every 4 hours as needed for Pain/Fever Unchanged albuterol (Albuterol (Eqv-Proventil HFA) 90 mcg/ inh inhalation aerosol) See instructions INHALE 2 PUFFS BY MOUTH EVERY 4 HOURS NEEDED Unchanged aspirin (aspirin 81 mg Oral EC Tab) 1 Tablets By Mouth Every day Unchanged atorvastatin (atorvastatin 80 mg Tab) 1 Tablets By Mouth Every day TAKE ONE TABLET BY MOUTH DAILY Unchanged clopidogrel (clopidogrel 75 mg Tab) 1 Tablets By Mouth Every day TAKE ONE TABLET BY MOUTH DAILY Unchanged diltiazem (DilTIAZem (Eqv-Cardizem CD) 120 mg/ 24 hours oral capsule, extended release) See instructions TAKE ONE CAPSULE BY MOUTH ONCE DAILY Unchanged fluticasone nasal (Xhance 93 mcg/ inh nasal spray) 2 Sprays Nasal Inhalation 2 times a day INSTILL 2 SPRAYS (1 SPRAY IN EACH NOSTRIL) TWICE A DAY FOR 30 DAYS Unchanged losartan (losartan 25 mg Tab) 1 Tablets By Mouth Every day TAKE ONE TABLET BY MOUTH ONCE DAILY Unchanged metoprolol (Lopressor 25 mg oral tablet) 1 Tablets By Mouth 2 times a day TAKE ONE TABLET BY MOUTH TWICE A DAY Unchanged montelukast (montelukast 10 mg Tab) 1 Tablets By Mouth At bedtime TAKE ONE TABLET BY MOUTH ONCE DAILY Pharmacy Information [facility]: [address], [place] [id number] [phone] Allergies No Known Medication Allergies Problems Ongoing - Any problem that you are currently receiving treatment for. Changes in skin texture Essential hypertension Fatigue Hyperlipidemia Left foot pain Left shoulder pain Screening for thyroid disorder Severe claudication Smoker Smoking trying to quit Patient Survey You may receive a survey via text or e-mail asking about your office visit. Please share your experience with us by completing your survey. We appreciate your feedback and thank you for choosing us for your care. Education Materials Sinus Infection, Adult A sinus infection is soreness and swelling (inflammation) of your sinuses. Sinuses are hollow spaces in the bones around your face. They are located: ??? Around your eyes. ??? In the middle of your forehead. ??? Behind your nose. ??? In your cheekbones. Your sinuses and nasal passages are lined with a fluid called mucus. Mucus drains out of your sinuses. Swelling can trap mucus in your sinuses. This lets germs (bacteria, virus, or fungus) grow, which leads to infection. Most of the time, this condition is caused by a virus. What are the causes? Allergies. ??? Asthma. ??? Germs. ??? Things that block your nose or sinuses. ??? Growths in the nose (nasal polyps). ??? Chemicals or irritants in the air. ??? A fungus. This is rare. What increases the risk? Having a weak body defense system (immune system). ??? Doing a lot of swimming or diving. ??? Using nasal sprays too much. ??? Smoking. What are the signs or symptoms? The main symptoms of this condition are pain and a feeling of pressure around the sinuses. Other symptoms include: ??? Stuffy nose (congestion). This may make it hard to breathe through your nose. ??? Runny nose (drainage). ??? Soreness, swelling, and warmth in the sinuses. ??? A cough that may get worse at night. ??? Being unable to smell and taste. ??? Mucus that collects in the throat or the back of the nose (postnasal drip). This may cause a sore throat or bad breath. ??? Being very tired (fatigued). ??? A fever. How is this diagnosed? Your symptoms. ??? Your medical history. ??? A physical exam. ??? Tests to find out if your condition is short-term (acute) or long-term (chronic). Your doctor may: ? Check your nose for growths (polyps). ? Check your sinuses using a tool that has a light on one end (endoscope). ? Check for allergies or germs. ? Do imaging tests, such as an MRI or CT scan. How is this treated? Treatment for this condition depends on the cause and whether it is short-term or long-term. ??? If caused by a virus, your symptoms should go away on their own within 10 days. You may be given medicines to relieve symptoms. They include: ? Medicines that shrink swollen tissue in the nose. ? A spray that treats swelling of the nostrils. ? Rinses that help get rid of thick mucus in your nose (nasal saline washes). ? Medicines that treat allergies (antihistamines). ? [id number] pain relievers. ??? If caused by bacteria, your doctor may wait to see if you will get better without treatment. You may be given antibiotic medicine if you have: ? A very bad infection. ? A weak body defense system. ??? If caused by growths in the nose, surgery may be needed. Follow these instructions at home: Medicines ??? Take, use, or apply [id number] and prescription medicines only as told by your doctor. These may include nasal sprays. ??? If you were prescribed an antibiotic medicine, take it as told by your doctor. Do not stop taking it even if you start to feel better. Hydrate and humidify ??? Drink enough water to keep your pee (urine) pale yellow. ??? Use a cool mist humidifier to keep the humidity level in your home above 50%. ??? Breathe in steam for 10???15 minutes, 3???4 times a day, or as told by your doctor. You can do this in the bathroom while a hot shower is running. ??? Try not to spend time in cool or dry air. Rest ??? Rest as much as you can. ??? Sleep with your head raised (elevated). ??? Make sure you get enough sleep each night. General instructions ??? Put a warm, moist washcloth on your face 3???4 times a day, or as often as told by your doctor. ??? Use nasal saline washes as often as told by your doctor. ??? Wash your hands often with soap and water. If you cannot use soap and water, use hand hub associate. ??? Do not smoke. Avoid being around people who are smoking (secondhand smoke). ??? Keep all follow-up visits. Contact a doctor if: ??? You have a fever. ??? Your symptoms get worse. ??? Your symptoms do not get better within 10 days. Get help right away if: ??? You have a very bad headache. ??? You cannot stop vomiting. ??? You have very bad pain or swelling around your face or eyes. ??? You have trouble seeing. ??? You feel confused. ??? Your neck is stiff. ??? You have trouble breathing. These symptoms may be an emergency. Get help right away. Call 911. ??? Do not wait to see if the symptoms will go away. ??? Do not drive yourself to the hospital. Summary ??? A sinus infection is swelling of your sinuses. Sinuses are hollow spaces in the bones around your face. ??? This condition is caused by tissues in your nose that become inflamed or swollen. This traps germs. These can lead to infection. ??? If you were prescribed an antibiotic medicine, take it as told by your doctor. Do not stop taking it even if you start to feel better. ??? Keep all follow-up visits. This information is not intended to replace advice given to you by your health care provider. Make sure you discuss any questions you have with your health care provider. Document Revised: 08/20/2022 Document Reviewed: 08/20/2022 Hum Patient Education ??? 2023 [employer]. FAMILY MEDICINE OFFICE/CLINI C NOTE Observed: 09/27/2024 1:06 PM Status: F Source: [facility] Family Medicine Office/Clini c Note HPI Staff Maria is a 64 year old male presenting with sinus pressure, cough, with green mucus Started a week ago Headache- yes Earache- no Sinus Congestion- yes Rhinorrhea- yes Sore Throat- no Cough- yes wheezing- no a little bit Dyspnea on exertion- no Orthopnea- Trouble laying flat/breathing through nose: yes at night time is worse Lung Hx (asthma, recurring bronchitis/chest colds, COPD)- no Fevers/chills- no GI symptoms- no Tried NyQuil, and allergy med- nothing has helped I have reviewed and verified the staff HPI to be accurate for this encounter. History of Present Illness 86 year old patient of Kamar Sharif CNP presents today for an acute visit for evaluation of sinus pressure and green mucus x 7 days. She reports her symptoms started last week and she has been trying a bunch of different OTC products and nothing has helped. She denies a fever. She reports nasal congestion, sinus pressure, and cough. She reports she is a smoker and not ready to quit. Review of Systems PHQ Score Initial Depression Screen Score: 0 SCORE Physical Exam Vitals & Measurements T: 36.7 ???C(Oral) HR: 72(Peripheral) RR: 18 BP: 124/84 SpO2: 99% HT: 66 in HT: 167.0 cm WT: 57.8 kg WT: 127.427 lb BMI: 20.73 General: alert, no acute distress ENMT: TM's clear, oral mucosa moist, yes mild pharyngeal erythema or exudate; positive maxillary sinus tenderness Cardiovascular: regular rate and rhythm, normal peripheral perfusion Respiratory: Lungs CTA, respirations non labored Extremities: no deformity, no trauma Neurological: oriented x 4, LOC appropriate for age speech normal Assessment/Plan 1. Sinusitis (J32.9: Chronic sinusitis, unspecified) Ordered: azithromycin, = 1 packet(s), Oral, As Directed, as directed on package labeling, X 5 day(s), # 6 tab(s), Refills(s) 0, Pharmacy: [facility], 167, cm, 09/27/24 12:44:00 EST, Height/Length Dosing, 57.8, kg, 09/27/24 12:44:00 EST, Weight Dosing 2. Smoker (F17.200: Nicotine dependence, unspecified, uncomplicated) We strongly recommend to quit tobacco use. Cigarette smoking harms nearly every organ of the body, causes many diseases, and reduces the health of smokers in general. Quitting smoking lowers your risk for smoking-related diseases and can add years to your life. We encourage you to visit www.smokefree.gov access to helpful resources including free telephone support. If you decide on prescription treatment to help you quit, we would be happy to provide these. Follow-up No qualifying data available Patient Education Sinus Infection, Adult, [id number] Problem List/Past Medical History Ongoing Changes in skin texture Essential hypertension Fatigue Hyperlipidemia Left foot pain Left shoulder pain Screening for thyroid disorder Severe claudication Smoker Smoking trying to quit Historical No qualifying data Procedure/Surgical History Excision of lesion of skin (05/26/2024), Cardiac catheterization, left heart (04/23/2024), PCI - Percutaneous coronary intervention (04/23/2024), Angiography of artery of left lower extremity (12/29/2023), section (04/12/1993). Medications Albuterol (Eqv-Proventil HFA) 90 mcg/inh inhalation aerosol, See Instructions aspirin 81 mg Oral EC Tab, 81 mg= 1 tab(s), Oral, Daily, 3 refills atorvastatin 80 mg Tab, 80 mg= 1 tab(s), Oral, Daily, 3 refills azithromycin 250 mg Tab, 1 packet(s), Oral, As Directed clopidogrel 75 mg Tab, 75 mg= 1 tab(s), Oral, Daily, 1 refills DilTIAZem (Eqv-Cardizem CD) 120 mg/24 hours oral capsule, extended release, See Instructions, 3 refills Lopressor 25 mg oral tablet, 25 mg= 1 tab(s), Oral, BID, 1 refills losartan 25 mg Tab, 25 mg= 1 tab(s), Oral, Daily, 1 refills montelukast 10 mg Tab, 10 mg= 1 tab(s), Oral, Bedtime, 4 refills Tylenol 325 mg Tab, 500 mg, Oral, q4hr, PRN Xhance 93 mcg/inh nasal spray, 2 spray(s), Nasal, BID, 5 refills Allergies No Known Medication Allergies Social History Alcohol - Low Risk, 12/24/2022 Current. Beer. 1-2 times per week., 08/03/2024 Substance Abuse - Denies Substance Abuse, 12/24/2022 Never., 08/03/2024 Tobacco - Medium Risk, 12/24/2022 5-9 cigarettes (between 1/4 to 1/2 pack)/day in last 30 days, Smoker, current status unknown Tobacco Use:., 09/27/2024 Family History Bipolar: Mother. Hypertension: Father. Renal failure syndrome: Mother. Immunizations Vaccine Date Status Comments influenza virus vaccine, inactivated - Not Given Patient Refuses SARS-CoV-2 (COVID-19) mRNA BNT-162b2 vax 08/29/2021 Recorded 2022-12-23: [id number] SARS-CoV-2 (COVID-19) mRNA BNT-162b2 vax 12/01/2020 Recorded SARS-CoV-2 (COVID-19) mRNA BNT-162b2 vax 11/10/2020 Recorded influenza, whole 07/15/2007 Recorded hepatitis B adult vaccine 08/30/2005 Recorded hepatitis B adult vaccine 05/31/2005 Recorded hepatitis B adult vaccine 04/29/2005 Recorded Result Comment: Electronical ly Signed By: KRISTEL VASQUES CNP\Date and Time Signed: 09/27/24 13:06 EST PATIENT EDUCATION Observed: 09/27/2024 1:05 PM Status: F Source: [facility] Patient Education Infectious Disease Sinus Infection, Adult A sinus infection is soreness and swelling (inflammation) of your sinuses. Sinuses are hollow spaces in the bones around your face. They are located: ??? Around your eyes. ??? In the middle of your forehead. ??? Behind your nose. ??? In your cheekbones. Your sinuses and nasal passages are lined with a fluid called mucus. Mucus drains out of your sinuses. Swelling can trap mucus in your sinuses. This lets germs (bacteria, virus, or fungus) grow, which leads to infection. Most of the time, this condition is caused by a virus. What are the causes? Allergies. ??? Asthma. ??? Germs. ??? Things that block your nose or sinuses. ??? Growths in the nose (nasal polyps). ??? Chemicals or irritants in the air. ??? A fungus. This is rare. What increases the risk? Having a weak body defense system (immune system). ??? Doing a lot of swimming or diving. ??? Using nasal sprays too much. ??? Smoking. What are the signs or symptoms? The main symptoms of this condition are pain and a feeling of pressure around the sinuses. Other symptoms include: ??? Stuffy nose (congestion). This may make it hard to breathe through your nose. ??? Runny nose (drainage). ??? Soreness, swelling, and warmth in the sinuses. ??? A cough that may get worse at night. ??? Being unable to smell and taste. ??? Mucus that collects in the throat or the back of the nose (postnasal drip). This may cause a sore throat or bad breath. ??? Being very tired (fatigued). ??? A fever. How is this diagnosed? Your symptoms. ??? Your medical history. ??? A physical exam. ??? Tests to find out if your condition is short-term (acute) or long-term (chronic). Your doctor may: ? Check your nose for growths (polyps). ? Check your sinuses using a tool that has a light on one end (endoscope). ? Check for allergies or germs. ? Do imaging tests, such as an MRI or CT scan. How is this treated? Treatment for this condition depends on the cause and whether it is short-term or long-term. ??? If caused by a virus, your symptoms should go away on their own within 10 days. You may be given medicines to relieve symptoms. They include: ? Medicines that shrink swollen tissue in the nose. ? A spray that treats swelling of the nostrils. ? Rinses that help get rid of thick mucus in your nose (nasal saline washes). ? Medicines that treat allergies (antihistamines). ? Eobv-kuc-ytgaofz pain relievers. ??? If caused by bacteria, your doctor may wait to see if you will get better without treatment. You may be given antibiotic medicine if you have: ? A very bad infection. ? A weak body defense system. ??? If caused by growths in the nose, surgery may be needed. Follow these instructions at home: Medicines ??? Take, use, or apply hajg-fja-dwxilce and prescription medicines only as told by your doctor. These may include nasal sprays. ??? If you were prescribed an antibiotic medicine, take it as told by your doctor. Do not stop taking it even if you start to feel better. Hydrate and humidify ??? Drink enough water to keep your pee (urine) pale yellow. ??? Use a cool mist humidifier to keep the humidity level in your home above 50%. ??? Breathe in steam for 10?15 minutes, 3?4 times a day, or as told by your doctor. You can do this in the bathroom while a hot shower is running. ??? Try not to spend time in cool or dry air. Rest ??? Rest as much as you can. ??? Sleep with your head raised (elevated). ??? Make sure you get enough sleep each night. General instructions ??? Put a warm, moist washcloth on your face 3?4 times a day, or as often as told by your doctor. ??? Use nasal saline washes as often as told by your doctor. ??? Wash your hands often with soap and water. If you cannot use soap and water, use hand hub associate. ??? Do not smoke. Avoid being around people who are smoking (secondhand smoke). ??? Keep all follow-up visits. Contact a doctor if: ??? You have a fever. ??? Your symptoms get worse. ??? Your symptoms do not get better within 10 days. Get help right away if: ??? You have a very bad headache. ??? You cannot stop vomiting. ??? You have very bad pain or swelling around your face or eyes. ??? You have trouble seeing. ??? You feel confused. ??? Your neck is stiff. ??? You have trouble breathing. These symptoms may be an emergency. Get help right away. Call 911. ??? Do not wait to see if the symptoms will go away. ??? Do not drive yourself to the hospital. Summary ??? A sinus infection is swelling of your sinuses. Sinuses are hollow spaces in the bones around your face. ??? This condition is caused by tissues in your nose that become inflamed or swollen. This traps germs. These can lead to infection. ??? If you were prescribed an antibiotic medicine, take it as told by your doctor. Do not stop taking it even if you start to feel better. ??? Keep all follow-up visits. This information is not intended to replace advice given to you by your health care provider. Make sure you discuss any questions you have with your health care provider. Document Revised: 08/20/2022 Document Reviewed: 08/20/2022 Hum Patient Education ? 2023 [employer]. HEART AND VASCULAR OFFICE/CLINIC NOTE Observed: 08/06/2024 3:19 PM Status: F Source: [facility] Heart and Vascular Office/ in Note Chief Complaint 3 month f/u - CAD History of Present Illness The patient is a 64-year-old female with past cardiac history of CAD, last PCI earlier this year with PCI of the LAD, and prior PCI in the remote past. She is a former patient of Dr. Mason'wade. She comes for a scheduled follow-up appointment. Totally asymptomatic, specifically, no issues with chest pain, tightness, shortness of breath, dizziness or lightheadedness. She tried to do cardiac rehab, however, could not tolerated, as it was boring. She states compliance with the current treatment plan. Denies any side effects. On DAPT with aspirin and Plavix. On high intensity statin. Review of Systems ROS - Provider Constitutional: no fever, no chills, no sweats, no weakness Respiratory: no shortness of breath, no cough Cardiovascular: no chest pain Neuro: no dizziness. no loss of consciousness Physical Exam Vitals & Measurements HR: 77(Peripheral) RR: 16 BP: 128/70 SpO2: 96% HT: 66 in HT: 167 cm WT: 57.1 kg WT: 125.62 lb BMI: 20.47 General: alert, no acute distress Neck: Supple, noJVD nocarotid bruit Cardiovascular: regular rate and rhythm, no murmur normal peripheral perfusion Respiratory: Lungs CTAB, respirations non labored Extremities: no edema left lower extremity. no edema right lower extremity Neurological: oriented x 4, LOC appropriate for age, speech normal Skin: Warm, dry, intact- no rash or concerning lesions Procedure (04/16/2024 11:03 EDT NM Myocardial Spect Rest/Stress 1 Day) Interpretation Summary EKG baseline is LBBB. Lexiscan stress test is negative. [1] (04/16/2024 08:47 EDT Echo Transthoracic Complete) Interpretation Summary Ejection Fraction = 50-55%. Normal LV size and low normal LV systolic function. Normal RV. No significant valve disease. Anteroapical wall motion abnormality. Normal diastolic filling pattern. Normal estimated PA pressure [1] LMT: Normal left main trunk with bifurcation LAD: Normal caliber with patent previously placed proximal stents, distal edge has 70% stenosis, reaches the apex. LCx: Normal caliber with mild irregularity and less than 30% stenosis, reaches the lateral wall. RCA: Normal caliber with 80% proximal stenosis, 80 to 90% mid heavily calcified, dominant, reaches the inferior wall. Hemodynamics: Normal LVEDP with no gradient across the aortic valve. Left ventriculography: Normal LV systolic function, EF 55-60%, no wall motion abnormalities and normal chamber size with no mitral regurgitation. iFR note: Successful IFR of the mid LAD is significant PCI note: Success PCI mid LAD with 70% stenosis PARUL-3 flow reduced to 0% residual to reflow after implantation of a Xience 2.5/12 postdilated 2.5 NC at high pressure Conclusions: Significant multivessel CAD, PCI of LAD performed. Will need staged PCI of the RCA plan to do so with shockwave lithotripsy due to heavy calcification. CAD: DAPT, beta-jeremiah, statin, risk factor modification. Importance of antiplatelet compliance was emphasized including risk of stent thrombosis or . The patient understands as well as his accompanying family member/friend that the patient may have stent thrombosis or heart attack and the patient agrees. I myself have specifically counseled the patient regarding stent thrombosis risk including and the patient will additionally be counseled by the Counseling Aide team and in follow-up. [2] Assessment/Plan 1. CAD in nome artery (I25.10: Atherosclerotic heart disease of nome coronary artery without angina pectoris) The patient has unrevascularized RCA territory. I independently reviewed prior angiogram; there is an evidence of a calcified nodule in the mid RCA, which will likely require plaque modification techniques, either coronary lithotripsy if balloon can be delivered, or rotational atherectomy. She is totally asymptomatic from the cardiac standpoint on 2 antianginals; stress test showed no evidence of reversibility. At this point, we will continue medical management. 2. Essential hypertension (I10: Essential (primary) hypertension) Blood pressure is well-controlled. 3. Hyperlipidemia (E78.5: Hyperlipidemia, unspecified) On high-dose high intensity statin. Will update fasting lipids. Follow-up No qualifying data available 4 months Problem List/Past Medical History Ongoing Changes in skin texture Essential hypertension Fatigue Hyperlipidemia Left foot pain Left shoulder pain Screening for thyroid disorder Severe claudication Smoker Smoking trying to quit Historical No qualifying data Procedure/Surgical History Excision of lesion of skin (05/26/2024), Cardiac catheterization, left heart (04/23/2024), PCI - Percutaneous coronary intervention (04/23/2024), Angiography of artery of left lower extremity (12/29/2023), section (04/12/1993). Medications Albuterol (Eqv-ProAir HFA) 90 mcg/inh inhalation aerosol, 2 puff(s), Inhalation, q4hr, PRN, 3 refills aspirin 81 mg Oral EC Tab, 81 mg= 1 tab(s), Oral, Daily, 3 refills atorvastatin 80 mg Tab, 80 mg= 1 tab(s), Oral, Daily, 3 refills clopidogrel 75 mg Tab, 75 mg= 1 tab(s), Oral, Daily, 1 refills DilTIAZem (Eqv-Cardizem CD) 120 mg/24 hours oral capsule, extended release, See Instructions, 3 refills Lopressor 25 mg oral tablet, 25 mg= 1 tab(s), Oral, BID, 1 refills losartan 25 mg Tab, 25 mg= 1 tab(s), Oral, Daily, 1 refills montelukast 10 mg Tab, 10 mg= 1 tab(s), Oral, Bedtime, 4 refills Tylenol 325 mg Tab, 500 mg, Oral, q4hr, PRN Xhance 93 mcg/inh nasal spray, 2 spray(s), Nasal, BID, 5 refills Allergies No Known Medication Allergies Social History Alcohol - Low Risk, 12/24/2022 Current. Beer. 1-2 times per week., 08/03/2024 Substance Abuse - Denies Substance Abuse, 12/24/2022 Never., 08/03/2024 Tobacco - Medium Risk, 12/24/2022 5-9 cigarettes (between 1/4 to 1/2 pack)/day in last 30 days, Smoker, current status unknown Tobacco Use:., 08/06/2024 Family History Bipolar: Mother. Hypertension: Father. Renal failure syndrome: Mother. Immunizations Vaccine Date Status Comments influenza virus vaccine, inactivated - Not Given Patient Refuses SARS-CoV-2 (COVID-19) mRNA BNT-162b2 vax 08/29/2021 Recorded 2022-12-23: [id number] SARS-CoV-2 (COVID-19) mRNA BNT-162b2 vax 12/01/2020 Recorded SARS-CoV-2 (COVID-19) mRNA BNT-162b2 vax 11/10/2020 Recorded influenza, whole 07/15/2007 Recorded hepatitis B adult vaccine 08/30/2005 Recorded hepatitis B adult vaccine 05/31/2005 Recorded hepatitis B adult vaccine 04/29/2005 Recorded [1] Office Visit Note; Brady COOPER, Otto Lawson 05/07/2024 10:46 EDT [2] Op Note; Marlon YE, Napoleon Mancini 04/23/2024 11:49 EDT Result Comment: Electronical ly Signed By: Jarad YE, Gaetano Rios\.br\Date and Time Signed: 08/06/24 15:36 EST DISCHARGE INSTRUCTIONS Observed: 024 12:19 PM Status: F Source: [facility] Discharge Instructions MARIA EM :1960 Visit Date:05/26/2024 Inpatient Discharge Instructions Your Care Team Admitting Physician - Jani Nguyen DO Referring Physician - Jani Nguyen DO Reason for Your Visit SQUAMOUS 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 This Is Your Medications List acetaminophen (Tylenol 325 mg Tab) albuterol (Albuterol (Eqv-ProAir HFA) 90 mcg/inh inhalation aerosol) aspirin (aspirin 81 mg Oral EC Tab) atorvastatin (atorvastatin 80 mg Tab) clopidogrel (clopidogrel 75 mg Tab) diltiazem (DilTIAZem (Eqv-Cardizem CD) 120 mg/24 hours oral capsule, extended release) fluticasone nasal (Xhance 93 mcg/inh nasal spray) losartan (losartan 25 mg Tab) metoprolol (Lopressor 25 mg oral tablet) montelukast (montelukast 10 mg Tab) Procedure History Cardiac catheterization, left heart (04/23/2024), PCI - Percutaneous coronary intervention (04/23/2024), Angiography of artery of left lower extremity (12/29/2023), section (04/12/1993). What to do next Instructions From Your Doctor Event Name Event Result Discharge Instructions Freetext Tylenol or Motrin for painAntibiotic ointment to wound 3 times a dayIce for pain, swellingMay shower in 24 hours Discharge Activity Ambulate as tolerated, Expect mild pain, Expect minimal amount of drainage and/or bleeding Discharge Restrictions No restrictions Discharge Diet(s) Regular Call Your Doctor For Persistent or heavy bleeding, Temperature above 101.5 degrees Discharge Instructions Discharge Instructions Previously Scheduled Follow-Up Appointments Friday 3:45 PM EST With: Brady COOPER, Otto Lawson Where: [facility] New Follow Up Appointments after Discharge Follow Up with Jani Nguyen When: Medications What How Much When Instructions Next Dose Unchanged acetaminophen (Tylenol 325 mg Tab) 500 Milligram By Mouth Every 4 hours as needed for Pain/Fever Unchanged albuterol (Albuterol (Eqv-ProAir HFA) 90 mcg/ inh inhalation aerosol) 2 Puffs Inhalation Every 4 hours as needed for w Unchanged aspirin (aspirin 81 mg Oral EC Tab) 1 Tablets By Mouth Every day Unchanged atorvastatin (atorvastatin 80 mg Tab) 1 Tablets By Mouth Every day TAKE ONE TABLET BY MOUTH DAILY Unchanged clopidogrel (clopidogrel 75 mg Tab) 1 Tablets By Mouth Every day TAKE ONE TABLET BY MOUTH DAILY Unchanged diltiazem (DilTIAZem (Eqv-Cardizem CD) 120 mg/ 24 hours oral capsule, extended release) See instructions TAKE ONE CAPSULE BY MOUTH ONCE DAILY Unchanged fluticasone nasal (Xhance 93 mcg/ inh nasal spray) 2 Sprays Nasal Inhalation 2 times a day INSTILL 2 SPRAYS (1 SPRAY IN EACH NOSTRIL) TWICE A DAY FOR 30 DAYS Unchanged losartan (losartan 25 mg Tab) 1 Tablets By Mouth Every day TAKE ONE TABLET BY MOUTH ONCE DAILY Unchanged metoprolol (Lopressor 25 mg oral tablet) 1 Tablets By Mouth 2 times a day TAKE ONE TABLET BY MOUTH TWICE A DAY Unchanged montelukast (montelukast 10 mg Tab) 1 Tablets By Mouth At bedtime TAKE ONE TABLET BY MOUTH ONCE DAILY Test Results No qualifying data available. Allergies No Known Medication Allergies Problems Ongoing - Any problem that you are currently receiving treatment for. Changes in skin texture Essential hypertension Fatigue Hyperlipidemia Left foot pain Left shoulder pain Screening for thyroid disorder Severe claudication Smoker Smoking trying to quit Education Materials Skin Lesion Removal Why is this procedure done? Skin lesions are areas of the skin that are not normal. They may look like a lump or bump. Some are moles or cysts. Warts and skin tags are also skin lesions. Most skin lesions do not cause problems. You may want them removed because of how they look. Some people have them taken off because they are rubbing or a bother. Some lesions are taken off because there may be a sign of cancer. What will the results be? Skin should grow back with normal surface. What happens before the procedure? ? Your doctor will do an exam and take your history. Talk to the doctor about: ? All the drugs you are taking. Be sure to include all prescription and xkdv-cft-dbrwchv (OTC) drugs, and herbal supplements. Tell the doctor about any drug allergy. Bring a list of drugs you take with you. ? Any bleeding problems. Be sure to tell your doctor if you are taking any drugs that may cause bleeding. Some of these are Coumadin?, ibuprofen, Aleve? (naproxen), or aspirin. Certain vitamins and herbs, such as garlic and fish oil, may also add to the risk for bleeding. You may need to stop these drugs as well. Talk to your doctor about them. ? Take a bath or shower before the procedure. This will help reduce the amount of germs on your skin. What happens during the procedure? There are a few ways to remove a skin lesion. Your doctor will decide which is the best way to take off your lesion. ? The staff will clean the skin area with the lesion. The doctor will numb the area. You may be given a drug to keep you relaxed and pain free. ? The doctor may shave the lesion down to the level of your skin. This may be done with a laser. ? The doctor may burn the lesion off using a special electrical tool. ? The doctor may use a tool that will freeze the lesion off. ? The doctor may use a tool with a loop at the end to scrape the lesion. ? Other lesions, such as possible skin cancers, can be cut out. The wound will be closed with stitches. What happens after the procedure? ? The wound will be covered with clean bandages. ? The doctor may send a sample of the lesion for tests to check for skin cancer. Ask your doctor when you will have results. ? You may go home after the procedure. What care is needed at home? ? Your doctor may give you drugs for pain and infection. Take your drugs as ordered by your doctor. ? Talk to your doctor about where your skin lesion was removed. Ask your doctor about: ? When you should change your bandages ? How to care for your site ? When you may take a bath or shower ? Be sure to wash your hands before touching your wound or dressing. What follow-up care is needed? ? Your doctor may ask you to make visits to the office to check on your progress. Be sure to keep these visits. ? Your doctor may want to go over the result of your tests. Together you can make a plan for more care. ? If you have stitches or edison, you will need to have them taken out. Your doctor will often want to do this in 1 to 2 weeks. What problems could happen? ? Bleeding ? Infection ? Scarring ? Nerve damage ? Regrowth of lesion Common Emergency Awareness Tips IS IT A STROKE? Act FAST and Check for these signs: FACE Does the face look uneven? ARM Does one arm drift down? SPEECH Does their speech sound strange? TIME Call at any sign of stroke Heart Attack Signs Chest discomfort: Most heart attacks involve discomfort in the center of the chest and lasts more than a few minutes, or goes away and comes back. It can feel like uncomfortable pressure, squeezing, fullness or pain. Discomfort in upper body: Symptoms can include pain or discomfort in one or both arms, back, neck, jaw or stomach. Shortness of breath: With or without discomfort. Other signs: Breaking out in a cold sweat, nausea, or lightheaded. Remember, MINUTES DO MATTER. If you experience any of these heart attack warning signs, call to get immediate medical attention! Patient Survey You may receive a survey in the mail asking you about your stay with us. We want to hear from you, please share your experience with us by completing your survey. Thank you for choosing [facility]. [employer] Award Nomination The LEODAN (Diseases Attacking the Immune SYstem) Award is an international recognition program that honors and celebrates the skillful, compassionate care nurses provide every day. Anyone who experiences or observes amazing care being provided by a nurse is encouraged to submit a nomination. To nominate your nurse, use your smart phone to scan the QR code below. Patient Portal You may access all of your results and other medical record information on our secure patient portal. If you are not signed up for this yet, please contact [employer] at [phone] to get signed up today. Patient Name: MARIA EM Abebe I have received this information and my questions have been answered. Patient/Car Seat Coverer Name: Patient/Car Seat Coverer Signature: Relationship to Patient: Witness Name/Signature: Date: Result Comment: Electronical ly Signed By: Lily SCHROEDER, Tamanna Drummond\.br\Date and Time Signed: 05/26/24 12:19 EDT PATIENT EDUCATION - TEXT Observed: 05/26 12:19 PM Status: C Source: [facility] Patient Education - Text Skin Lesion Removal Why is this procedure done? Skin lesions are areas of the skin that are not normal. They may look like a lump or bump. Some are moles or cysts. Warts and skin tags are also skin lesions. Most skin lesions do not cause problems. You may want them removed because of how they look. Some people have them taken off because they are rubbing or a bother. Some lesions are taken off because there may be a sign of cancer. What will the results be? Skin should grow back with normal surface. What happens before the procedure? ? Your doctor will do an exam and take your history. Talk to the doctor about: ? All the drugs you are taking. Be sure to include all prescription and qxjo-upk-abpngjq (OTC) drugs, and herbal supplements. Tell the doctor about any drug allergy. Bring a list of drugs you take with you. ? Any bleeding problems. Be sure to tell your doctor if you are taking any drugs that may cause bleeding. Some of these are Coumadin?, ibuprofen, Aleve? (naproxen), or aspirin. Certain vitamins and herbs, such as garlic and fish oil, may also add to the risk for bleeding. You may need to stop these drugs as well. Talk to your doctor about them. ? Take a bath or shower before the procedure. This will help reduce the amount of germs on your skin. What happens during the procedure? There are a few ways to remove a skin lesion. Your doctor will decide which is the best way to take off your lesion. ? The staff will clean the skin area with the lesion. The doctor will numb the area. You may be given a drug to keep you relaxed and pain free. ? The doctor may shave the lesion down to the level of your skin. This may be done with a laser. ? The doctor may burn the lesion off using a special electrical tool. ? The doctor may use a tool that will freeze the lesion off. ? The doctor may use a tool with a loop at the end to scrape the lesion. ? Other lesions, such as possible skin cancers, can be cut out. The wound will be closed with stitches. What happens after the procedure? ? The wound will be covered with clean bandages. ? The doctor may send a sample of the lesion for tests to check for skin cancer. Ask your doctor when you will have results. ? You may go home after the procedure. What care is needed at home? ? Your doctor may give you drugs for pain and infection. Take your drugs as ordered by your doctor. ? Talk to your doctor about where your skin lesion was removed. Ask your doctor about: ? When you should change your bandages ? How to care for your site ? When you may take a bath or shower ? Be sure to wash your hands before touching your wound or dressing. What follow-up care is needed? ? Your doctor may ask you to make visits to the office to check on your progress. Be sure to keep these visits. ? Your doctor may want to go over the result of your tests. Together you can make a plan for more care. ? If you have stitches or edison, you will need to have them taken out. Your doctor will often want to do this in 1 to 2 weeks. What problems could happen? ? Bleeding ? Infection ? Scarring ? Nerve damage ? 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 MARIA EM has been given the following list of follow-up instructions, prescriptions, and patient education materials: PATIENT FOLLOW-UP INFORMATION Diet: Regular Discharge Activity: Ambulate as tolerated, Expect mild pain, Expect minimal amount of drainage and/or bleeding Discharge Restrictions: No restrictions Call Your Doctor For: Persistent or heavy bleeding, Temperature above 101.5 degrees Additional Instructions: Tylenol or Motrin for pain Antibiotic ointment to wound 3 times a day Ice for pain, swelling May shower in 24 hours IF UNABLE TO CONTACT YOUR PHYSICIAN AND YOU FEEL IT IS AN EMERGENCY, GO TO THE NEAREST EMERGENCY ROOM OR CALL 911 I, MARIA EM, have received the attached patient education materials/instructions and have verbalized understanding: May we do a follow up call? Yes No I was present when discharge instructions were given Patient Signature Date Clinican/Nurse Signature Date Follow up: With: Address: When: Jani Nguyen Type Location Start [facility] Cardiology Follow Up (FT) FT.Cardiology Clinic 08/03/2024 3:45 PM 08/03/2024 4:00 PM Confirmed Pharmacy Information: You may receive a survey from Nataliia Thibodeaux asking you to rate your care experience. Your feedback is important and will help us understand what we do well and how we can improve the quality of care we provide to you, your loved ones and our community. It?s an honor to serve you. Thank you for choosing [facility] HERE ARE THE MEDICATION CHANGES THAT OCCURRED DURING YOUR HOSPITAL STAY Medications to Continue with No Changes Other Medications acetaminophen (Tylenol 325 mg Tab) 500 Milligram By Mouth every 4 hours as needed Pain/Fever. albuterol (Albuterol (Eqv-ProAir HFA) 90 mcg/inh inhalation aerosol) 2 Puffs Inhalation every 4 hours as needed w. Refills: 3. aspirin (aspirin 81 mg Oral EC Tab) 1 Tablets By Mouth every day. Refills: 3. atorvastatin (atorvastatin 80 mg Tab) 1 Tablets By Mouth every day. TAKE ONE TABLET BY MOUTH DAILY. Refills: 3. clopidogrel (clopidogrel 75 mg Tab) 1 Tablets By Mouth every day. TAKE ONE TABLET BY MOUTH DAILY. Refills: 1. diltiazem (DilTIAZem (Eqv-Cardizem CD) 120 mg/24 hours oral capsule, extended release) TAKE ONE CAPSULE BY MOUTH ONCE DAILY. Refills: 3. fluticasone nasal (Xhance 93 mcg/inh nasal spray) 2 Sprays Nasal Inhalation 2 times a day. INSTILL 2 SPRAYS (1 SPRAY IN EACH NOSTRIL) TWICE A DAY FOR 30 DAYS. Refills: 5. losartan (losartan 25 mg Tab) 1 Tablets By Mouth every day. TAKE ONE TABLET BY MOUTH ONCE DAILY. Refills: 1. metoprolol (Lopressor 25 mg oral tablet) 1 Tablets By Mouth 2 times a day. TAKE ONE TABLET BY MOUTH TWICE A DAY. Refills: 1. montelukast (montelukast 10 mg Tab) 1 Tablets By Mouth at bedtime. TAKE ONE TABLET BY MOUTH ONCE DAILY. Refills: 4. 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 albuterol (Albuterol (Eqv-ProAir HFA) 90 mcg/inh inhalation aerosol) 2 Puffs Inhalation every 4 hours as needed w. Refills: 3. aspirin (aspirin 81 mg Oral EC Tab) 1 Tablets By Mouth every day. Refills: 3. atorvastatin (atorvastatin 80 mg Tab) 1 Tablets By Mouth every day. TAKE ONE TABLET BY MOUTH DAILY. Refills: 3. clopidogrel (clopidogrel 75 mg Tab) 1 Tablets By Mouth every day. TAKE ONE TABLET BY MOUTH DAILY. Refills: 1. diltiazem (DilTIAZem (Eqv-Cardizem CD) 120 mg/24 hours oral capsule, extended release) TAKE ONE CAPSULE BY MOUTH ONCE DAILY. Refills: 3. fluticasone nasal (Xhance 93 mcg/inh nasal spray) 2 Sprays Nasal Inhalation 2 times a day. INSTILL 2 SPRAYS (1 SPRAY IN EACH NOSTRIL) TWICE A DAY FOR 30 DAYS. Refills: 5. losartan (losartan 25 mg Tab) 1 Tablets By Mouth every day. TAKE ONE TABLET BY MOUTH ONCE DAILY. Refills: 1. metoprolol (Lopressor 25 mg oral tablet) 1 Tablets By Mouth 2 times a day. TAKE ONE TABLET BY MOUTH TWICE A DAY. Refills: 1. montelukast (montelukast 10 mg Tab) 1 Tablets By Mouth at bedtime. TAKE ONE TABLET BY MOUTH ONCE DAILY. Refills: 4. Comment: OPERATIVE REPORT Observed: 05/26/2024 12:12 PM Status: F Source: [facility] Operative Report SURGERY DATE: 05/26/2024 PREOPERATIVE DIAGNOSIS: Squamous cell carcinoma of right cheek POSTOPERATIVE DIAGNOSIS: Squamous cell carcinoma of right cheek OPERATION: Wide excision of squamous cell carcinoma of right cheek with complex repair 3 cm ANESTHESIA: Local BLOOD LOSS: Less than 5 cc COMPLICATIONS: None GROSS FINDINGS: This is a 63-year-old white female with a previous history of squamous cell carcinoma biopsied from the right cheek by Dermatology. The patient presents for a wider excision of this area for complete removal with complex repair. This was completed under local anesthesia. Intraoperatively, obvious evidence of prior biopsy of the right cheek was identified. This measured approximately 1.5 cm in greatest dimension. This was removed in ellipse fashion and sent for frozen section analysis. Complex repair completed. PROCEDURE: The patient was brought to the Operative Theatre at [facility] at which time she was placed in the reclined position. The area of the prior biopsy was identified. The area of the soft tissues was locally infiltrated with 1% lidocaine with epinephrine. The area was then sterilely prepped and draped in normal fashion. With this completed, an ellipse incision was placed around the area of prior biopsy. This segment of skin was then harvested sharply, oriented with suture, and sent for frozen section analysis. Hemostasis was achieved using bipolar cautery. The wound was then cleaned with saline. Extensive undermining was completed in all directions of the soft tissue defect. The subcutaneous soft tissues and the dermis were reapproximated using 5-0 PDS buried suture. The skin edges were then trimmed to proper alignment, and they were then reapproximated using a 6-0 nylon running simple suture. Adequate approximation of the wound edge was appreciated. The wound was then cleaned and dressed with antibiotic ointment. Anesthesia was then reversed and the patient awoke without difficulty. The patient was taken to Postanesthesia Care Unit in stable and satisfactory condition. Solitario Cabrera Dictated: 05/26/2024 [id number] Transcribed: 05/26/2024 Result Comment: Electronical ly Signed By: Jani Nguyen DO\.br\Date and Time Signed: 06/09/24 08:25 EDT OPERATIVE REPORT Observed: 05/26/2024 12:05 PM Status: F Source: [facility] Operative Report Patient: MARIA EM Age: 63 years Sex: Female : 1960 Associated Diagnoses: None Author: Jani Nguyen DO Postoperative Information Preoperative Diagnosis: SCC right cheek, 1.5cm. Postoperative Diagnosis: same. Performed by: Jani Nguyen DO. Specimens Removed: SCC right cheek. Estimated Blood Loss: 5 ml. Complications: None. Wide excision of SCC right cheek, FS, Complex repair 3cm Anesthesia type: local. Result Comment: Electronical ly Signed By: Jani Nguyen DO\.br\Date and Time Signed: 05/26/24 12:11 EDT SURGICAL PATHOLOGY REPORT Observed: 04/30 11:44 AM Status: F Source: [address] [place] [address]- Surgical Pathology Report Collected Date/Time: 05/26/2024 11:44 EDT Pathologist: Ced Thapa MD Received Date/Time: 05/26/2024 11:48 EDT Jani Nguyen DO, DO, Paul S 07 Surgical Pathology Report - 06/01/2024 12:22 EDT - Auth (Verified) Final Diagnosis SKIN LESION, RIGHT CHEEK, WIDE EXCISION: - Marked solar elastosis and stromal fibrosis with focal chronic inflammation consistent with prior procedure site change. - No residual squamous cell carcinoma identified. (Electronic Signature) Yan. Alanis MD 06/01/2024 12:22 Intraoperative Consultation Skin lesion, right cheek, frozen section: - Solar elastosis. - No residual tumor seen. - Margins negative. Frozen section diagnosis conveyed to Dr. Nguyen by Dr. Thapa on 05/26/2024 at 12:05 p.m. Clinical Information Pre-Op Diagnosis: Right cheek squamous cell carcinoma Procedure: Wide excision squamous cell carcinoma right cheek Post-Op Diagnosis: Squamous cell carcinoma right cheek, 1.5 cm Specimen(s) Received Right cheek lesion margins Gross Description Received in fresh, labeled with patient name, identifier, and right cheek lesion squamous cell carcinoma is an ellipse of skin measuring 3 x 1.5 cm by 0.2 cm in thickness with a short suture marking 12 o'clock, and a long suture marking 9 o'clock. The 12 o'clock margin is inked in green, 6 o'clock margin inked in blue and the deep margin inked black. The skin surface shows discoloration. No mass lesion is identified. One section from the center and 9:00 o'clock margin are submitted for frozen section in FS1. One section from the center and 3 o'clock margin are submitted for frozen section in FS2. Remaining tissue is submitted in one cassette for permanent section. (YC) DC:TIM Microscopic Description Microscopic examination performed unless gross only specified. Performed By: #### [id number] # ### [facility] [address] [place] [address] MAIN OR PACU II RECORD Observed: 024 11:42 AM Status: F Source: [facility] Main OR PACU II Record PACU Phase II Document Type FT Summary Primary Physician: Jani Nguyen DO Finalized Date/Time: 05/26/24 14:06:04 Pt. Name: MARIA EM/Sex: 1960 Female Med Rec #: [id number] Physician: Jani Nguyen DO Financial #: [id number] Pt. Type: A Room/Bed: [place] [address] Admit/Disch: 05/26/24 09:34:27 - Institution: Case Times PACU II FT Pre-Care Text: Identifies barriers to communication and implements measures to provide psychological support and determines knowledge level Develops individualized plan of care, and ensures continuity of care Maintains patient's dignity and privacy, and maintains patient confidentiality Identifies and reports philosophical, cultural, and spiritual beliefs and values Identifies individual values and wishes concerning care administers prescribed antibiotic therapy and immunizing agents as ordered, Evaluates postoperative tissue perfusion Implements thermoregulation measures, and monitors body temperature Evaluates postoperative respiratory status Evaluates postoperative cardiac status Evaluates postoperative neurological status Assesses pain control, collaborated in initiating patient-controlled analgesia and implements alternative methods of pain control Verifies allergies, administers prescribed medications and solutions, evaluates response to medications Entry 1 In PACU II 05/26/24 12:18:00 Discharge from PACU 05/26/24 12:25:00 II Outcomes Met? Yes Last Modified By: Tamanna Bautista RN 05/26/24 14:06:03 Post-Care Text: The patient demonstrates knowledge of the expected response to the operative or invasive procedure The patient's care is consistent with the individualized perioperative plan of care The patient's right to privacy is maintained The patient's value system, lifestyle, ethnicity, and culture are considered, respected, and incorporated into the perioperative plan of care The patient participates in decisions affecting his or her perioperative plan of care. The patient is free from signs and symptoms of infection The patient has wound/tissue perfusion consistent with or improved from baseline levels established preoperatively The patient is at or returning to normothermia at the conclusion of the immediate postoperative period The patient's respiratory function is consistent with or improved from baseline levels established preoperatively The patient's cardiovascular status is consistent with or improved from baseline levels established preoperatively The patient's neurological status is consistent with or improved from baseline levels established preoperatively The patient demonstrates and/or reports adequate pain control throughout the perioperative period The patient received appropriate medication(s), safely administered during the perioperative period Finalized By: Tamanna Bautista RN Document Signatures Signed By: Tamanna Bautista RN 05/26/24 14:06 MAIN OR INTRAOPERATIVE RECORD Observed: 05/26/2024 11:42 AM Status: C Source: [facility] Main OR Intraoperative Recor d IntraOp Document Type FT Summary Primary Physician: Jani Nguyen DO Finalized Date/Time: 05/27/24 11:50:38 Pt. Name: MARIA EM/Sex: 1960 Female Med Rec #: [id number] Physician: Jani Nguyen DO Financial #: [id number] Pt. Type: A Room/Bed: [facility] Admit/Disch: 05/26/24 09:34:27 - 05/26/24 12:25:00 Institution: Case Times FT Entry 1 Patient Times In Room 05/26/24 11:23:00 Out Room 05/26/24 12:12:00 Procedure Times Start 05/26/24 11:42:00 Stop 05/26/24 12:09:00 Anesthesia Times Last Modified By: Shahab Zhao 05/26/24 12:12:57 General Comments: 05/27/24 Chart opened for charge review per Ginna Quiñonez RN. [place] Case Attendance FT Entry 1 Entry 2 Entry 3 Case Attendee Anisa BRAND, Jani Patten RN, Wilda Capps Role Performed Surgeon - Primary Stereotype Molder - Primary Scrub - Primary Time In 05/26/24 11:32:00 05/26/24 11:23:00 05/26/24 11:23:00 Time Out 05/26/24 12:02:00 05/26/24 12:00:00 05/26/24 11:30:00 Procedure FROZEN SECTION(Right), FROZEN SECTION(Right), FROZEN SECTION(Right), FACIAL LESION FACIAL LESION FACIAL LESION EXCISION(Right, .) EXCISION(Right, .) EXCISION(Right, .) Comments Last Modified By: Shahab Zhao Terry T Sweene, Terry T 05/26/24 12:12:58 05/26/24 12:12:58 05/26/24 12:12:58 Entry 4 Entry 5 Case Attendee Bib Ballard CST, Terry T Role Performed Scrub - Relief Stereotype Molder - Primary Time In 05/26/24 11:30:00 05/26/24 11:56:00 Time Out 05/26/24 12:12:00 05/26/24 12:12:00 Procedure FROZEN SECTION(Right), FROZEN SECTION(Right), FACIAL LESION FACIAL LESION EXCISION(Right, .) EXCISION(Right, .) Comments Last Modified By: Shahab Zhao Terry T 05/26/24 12:12:58 05/26/24 12:12:58 Perioperative Protocols FT Pre-Care Text: Implements protective measures prior to operative or invasive procedure, confirms identity before the operative or invasive procedure, verifies operative procedure, surgical site, and laterality Entry 1 Procedure(s) FROZEN SECTION(Right), Patient Identity Birthday, ID Band FACIAL LESION Verified (select at Check, Patient EXCISION(Right, .) least 2): Participation Consents / H and P H&P, Surgery/Procedure Operative Site Present Verified Consent Marking Verified Surgical Site Yes Laterality Verified Yes Verified Procedure Verified Yes Correct Patient Yes Position Verified Availability Equipment, Medication Prep Dry n/a Verified (If Applicable) PreOp Antibiotic No Time Out Jani Nguyen DO, Given Participants Kinjal Patten RN, Nellie LARRY, Bib Drummond Time Out Complete 05/26/24 11:33:00 Outcomes Met? Yes Last Modified By: Kinjal Patten RN 05/26/24 11:52:56 Post-Care Text: The patient is free from signs and symptoms of injury caused by extraneous objects Allergy Information FT Pre-Care Text: Verifies allergies Entry 1 Allergies Reviewed? Yes Allergies Reviewed Self/Patient With Outcomes Met? Yes Last Modified By: Kinjal Patten RN 05/26/24 11:53:06 Post-Care Text: The patient received appropriate medication(s) safely administered during the perioperative period Surgical Procedures FT Entry 1 Entry 2 Procedure Description Procedure FROZEN SECTION FACIAL LESION EXCISION Modifiers Right Right, . Surgeon Description WIDE EXCISION SQUAMOUS WIDE EXCISION SQUAMOUS CELL CARCINOMA RIGHT CELL CARCINOMA RIGHT CHEEK WITH FROZEN CHEEK WITH FROZEN SECTION SECTION Primary Procedure No Yes Primary Surgeon Jani Nguyen DO, DO, Paul S Start 05/26/24 11:42:00 05/26/24 11:42:00 Stop 05/26/24 12:09:00 05/26/24 12:09:00 Anesthesia Type Local Local Surgical Service ENT ENT Wound Class 1 - Clean 1 - Clean Last Modified By: Shahab Zhao Terry T 05/26/24 12:13:00 05/26/24 12:13:00 General Case Data FT Pre-Care Text: Classifies surgical wound, implements aseptic technique, initiates traffic control Entry 1 Case Information OR OR 2 FT Case Level Level 1 Wound Class 1 - Clean Specialty ENT Preop Diagnosis SQUAMOUS CELL CARCINOMA Postop Same As Preop Yes RIGHT CHEEK Postop Diagnosis SQUAMOUS CELL CARCINOMA Outcomes Met? Yes RIGHT CHEEK Last Modified By: Khang SCHROEDER, BSN, Kady 05/27/24 11:48:59 Post-Care Text: The patient is free from signs and symptoms of infection Skin Assessment (Pre Procedure) FT Pre-Care Text: Implements protective measures to prevent skin/ tissue injury due to thermal or mechanical sources Evaluates for signs and symptoms of physical injury to skin and tissue Entry 1 Skin Integrity Intact, Coy, Warm, & Skin Abnormality No Dry Outcomes Met? Yes Last Modified By: Kinjal Patten RN 05/26/24 11:53:43 Post-Care Text: The patient is free from signs and symptoms of injury caused by extraneous objects Patient Positioning FT Pre-Care Text: Identifies physical alterations that require additional precautions for procedure-specific positioning, verifies presence of prosthetics or corrective devices, positions the patient, evaluates the patient for signs and symptoms of injury as a result of positioning Entry 1 Procedure FACIAL LESION Body Position Supine EXCISION(Right, .) Feet Uncrossed? Yes Left Arm Position Resting at Side Right Arm Position Resting at Side Left Leg Position Extended Right Leg Position Extended Positioning Device Safety Strap, Pillow Under Head Large Press Points Checked Yes By Kinjal Patten RN Outcomes Met? Yes Last Modified By: Kinjal Patten RN 05/26/24 11:54:02 Post-Care Text: The patient is free from signs and symptoms of injury related to positioning Patient Care Devices FT Pre-Care Text: Implements protective measures to prevent skin/ tissue injury due to thermal or mechanical sources Entry 1 Entry 2 Entry 3 Equipment Type CAUTERY UNIT HEADLIGHT MONITOR CHARGE SURGERY Equipment Number [id number] Equipment Setting BIPOLAR AT 15 Outcomes Met? Yes Yes Yes Last Modified By: Kinjal Patten RN, RN, Amy J Crosby RN, Amy J 05/26/24 11:54:30 05/26/24 11:54:30 05/26/24 11:54:30 Post-Care Text: The patient is free from signs and symptoms of injury caused by extraneous objects Transport To OR FT Pre-Care Text: Transports according to individual needs. Evaluates for signs and symptoms of skin and tissue injury as a result of transfer or transport Entry 1 Via Cart By Kinjal Patten RN Safety Precautions Side Rails Up Outcomes Met? Yes Last Modified By: Kinjal Patten RN 05/26/24 11:54:42 Post-Care Text: The patient is free from signs and symptoms of injury related to transfer/transport Cautery FT Pre-Care Text: Implements protective measures to prevent injury due to electrical sources, and evaluates for signs and symptoms of electrical injury Entry 1 ESU Identification ESU Settings Bipolar 15 ESU Grounding Pad Site Left Lower Leg Hair Removal Pad No Site Pre Pad Site Clear and Intact Post Pad Site Clear and Intact Condition Condition Grounding Pad Kinjal Patten RN Placed By Outcomes Met? Yes Last Modified By: Kinjal Patten RN 05/26/24 11:55:16 Post-Care Text: The patient if free from signs and symptoms of electrical injury General Comments: BOVIE PAD APPLIED, MONOPOLAR CAUTERY NOT USED. ALEXANDRE YOUNGER Counts Verification FT Pre-Care Text: Performs required counts Entry 1 Procedure(s) FACIAL LESION Type Initial EXCISION(Right, .) Items Sponges, Sharps Status Correct By Kinjal Patten RN, Outcomes Met? Yes SavannahWilda Last Modified By: Kinjal Patten RN 05/26/24 11:55:34 Post-Care Text: The patient is free from signs and symptoms of injury caused by extraneous objects Skin Prep FT Pre-Care Text: Performs skin preparations Entry 1 Procedure FACIAL LESION Prep Area BETADINE SWABSTICKS TO EXCISION(Right, .) RIGHT CHEEK Prep Agents Betadine Solution Hair Removal Methods Not Indicated By Kinjal Patten RN Outcomes Met? Yes Last Modified By: Kinjal Patten RN 05/26/24 11:56:13 Post-Care Text: The patient is free from signs and symptoms of infection Departure From OR FT Pre-Care Text: Transports according to individual needs. Evaluates for signs and symptoms of skin and tissue injury as a result of transfer or transport. Entry 1 Via Cart Safety Precautions Side Rails Up PostOp Destination Pre Surgery/ASU Transported By Shahab Zhao Patient Status Stable Skin. Condition Intact, Coy, Warm, & Description INCISION RIGHT CHEEK IS Dry WELL APPROXIMATED. Airway Maintenance Oxygen in Use? No Outcomes Met? Yes Last Modified By: Shahab Zhao 05/26/24 12:23:28 Post-Care Text: The patient is free from signs and symptoms of injury related to transfer/transport General Comments: VERBAL REPORT GIVEN TO PACU NURSE. Lavonne ZHAO RN. Dressing/Packing FT Pre-Care Text: Administers care to wound sites Entry 1 Type Dressing Site and Details NO DRESSING. BACITRACIN TO RIGHT CHEEK. Outcomes Met? Yes Last Modified By: Shahab Zhao 05/26/24 12:22:40 Post-Care Text: The patient is free from signs and symptoms of infection Medication Administration FT Pre-Care Text: Verifies allergies, administers prescribed medications and solutions, administers prescribed antibiotic therapy and immunizing agents as ordered, evaluates response to medications Administers prescribed medications and solutions Entry 1 Route of Admin Field Expiration Date Yes Verified Ordered By Jani Nguyen DO Administered By Jani Nguyen DO Outcomes Met? Yes Last Modified By: Kinjal Patten RN 05/26/24 11:51:34 Post-Care Text: The patient received appropriate medication(s) safely administered during the perioperative period For TorreEliezer please see scanned medication reconcilliation form for medications used at the field during the procedure. Cultures & Specimens FT Pre-Care Text: Manages specimen handling and disposition Manages culture specimen collection Entry 1 Cultures Ordered No Specimens Ordered Yes Specimen Disposition Other/See Comments Frozen Section Times FS Pathology 05/26/24 11:47:00 Notified Outcomes Met? Yes Last Modified By: Kinjal Patten RN 05/26/24 11:51:21 Post-Care Text: The patient is free from signs and symptoms of injury caused by extraneous objects The patient is free from signs and symptoms of infection General Comments: specimen to frozen section room at 1147. will be sent for permenant pathology to follow. alexandre younger Sign Out FT Entry 1 Before Patient Leaves OR Nurse verbally Yes Nurse verbally Yes confirms with the confirms with the team the name of team that the procedure(s) instrument, sponge, recorded and needle counts are correct (or N/A) Nurse verbally Yes Nurse verbally Yes confirms with the confirms with the team how the team whether there specimen is labeled are any equipment (including patient problems to be name), if applicable addressed Sign Out Complete 05/26/24 12:02:00 Last Modified By: Shahab Zhao 05/26/24 12:23:04 Case Comments <None> Finalized By: Khang SCHROEDER, Kady SCHWARTZ Document Signatures Signed By: Shahab Zhao 05/26/24 12:23 EFREN Quiñonez RN, Melinda 05/27/24 11:50 HEART AND VASCULAR OFFICE/CLINIC NOTE Observed: 05/07/2024 10:46 AM Status: F Source: [facility] Heart and Vascular Office/ in Note Chief Complaint 2 wk S/P PCI History of Present Illness Maria is a 63 year old female with past medical hx of CAD, HLD, HTN and is in the office today for follow up 2 week s/p PCI. Maria had 1 stent of the LAD 04/23/2024, pt compliant with current medications and her vitals are stable at this time. Pt reports she had a stent placed over 10 years ago, prior to that stent she had no symptoms and prior to her first [place] she only went to the ER due to extreme fatigue. Recently, it was suggested by her DRY FOLDER CLOTH that she should establish with a packaging line operator due to the cardiac medications she is on and due to her hx, Upon establishment with us she had an abnormal stress test which is what led to her recent PCI. Pt states she is feeling good over all. Pt will look into starting cardiac rehab in [place] if it works out, but does not want to have to come to [place] multiple times a week to do it, we will send referral for [place] in the office today , pt is physically active daily with no concerns at this time. Pt denies angina or anginal-like symptoms. Patient specifically denies chest pain, palpitations, SOB, MACARIO, edema, dizziness, near syncope, or syncope. NOTE FROM 04/16/24 Maria Em is a female patient who presents for a new patient evaluation for hypertension, peripheral arterial disease, and hyperlipidemia. The patient was formerly managed by Dr. Krishnamurthy and wishes to seek advice from a packaging line operator. She had undergone a stenting procedure around 10 years prior. Her current cardiac status is unclear, despite reporting no symptoms of weakness. An electrocardiogram was conducted. Assessment of her lower limbs reveals them to be in excellent health, with no evidence of ulcers. Review of Systems PHQ Score Initial Depression Screen Score: 0 SCORE ROS - Provider Constitutional: no fever, no chills, no sweats, no weakness Respiratory: no shortness of breath, no cough Cardiovascular: no chest pain Neuro: no dizziness. no loss of consciousness Cardiac Diagnostics PCI 04/23/2024 (04/16/2024 11:03 EDT NM Myocardial Spect Rest/Stress 1 Day) Interpretation Summary EKG baseline is LBBB. Lexiscan stress test is negative. [1] (04/16/2024 08:47 EDT Echo Transthoracic Complete) Interpretation Summary Ejection Fraction = 50-55%. Normal LV size and low normal LV systolic function. Normal RV. No significant valve disease. Anteroapical wall motion abnormality. Normal diastolic filling pattern. Normal estimated PA pressure. [2] Physical Exam Vitals & Measurements HR: 67(Peripheral) RR: 16 BP: 122/60 SpO2: 96% HT: 66 in HT: 167 cm WT: 55.8 kg WT: 122.76 lb BMI: 20.01 General: alert, no acute distress Cardiovascular: regular rate and rhythm, no murmur normal peripheral perfusion Respiratory: Lungs CTAB, respirations non labored Extremities: no edema left lower extremity. no edema right lower extremity Right radial access site is clean, dry, intact. No bruising, bleeding, or hematoma. Strong radial pulse with good extremity perfusion. Neurological: oriented x 4, LOC appropriate for age, speech normal Skin: Warm, dry, intact- no rash or concerning lesions Assessment/Plan 1. CAD in nome artery (I25.10: Atherosclerotic heart disease of nome coronary artery without angina pectoris) Successful PCI to the LAD 04/23/2024 , hx of prior stent placement 10+ years ago; Pt should continue current medications aspirin 81 mg qD, Plavix 75 mg, Lopressor 25 mg BID, atorvastatin 80mg. 2. Essential hypertension (I10: Essential (primary) hypertension) Pt bp is well controlled at this time and pt should continue current medications losartan 25 mg , diltiazem (DilTIAZem (Eqv-Cardizem CD) 120 mg qD at this time. 3. Hyperlipidemia (E78.5: Hyperlipidemia, unspecified) Well controlled at this time and pt should continue current medication atorvastatin 80 mg qD,. and will monitor with yearly lipid panel screenings Patient will return to clinic in 3 months for regular follow up appointment with me. Patient will call office for sooner appointment for acute concerns. IAinsley, personally scribed for Otto Abreu PA-C on 05/07/2024 Follow-up No qualifying data available Problem List/Past Medical History Ongoing Changes in skin texture Essential hypertension Fatigue Hyperlipidemia Left foot pain Left shoulder pain Screening for thyroid disorder Severe claudication Smoker Smoking trying to quit Historical No qualifying data Procedure/Surgical History Cardiac catheterization, left heart (04/23/2024), PCI - Percutaneous coronary intervention (04/23/2024), Angiography of artery of left lower extremity (12/29/2023), section (04/12/1993). Medications Albuterol (Eqv-ProAir HFA) 90 mcg/inh inhalation aerosol, 2 puff(s), Inhalation, q4hr, PRN, 3 refills aspirin 81 mg Oral EC Tab, 81 mg= 1 tab(s), Oral, Daily, 3 refills atorvastatin 80 mg Tab, 80 mg= 1 tab(s), Oral, Daily, 3 refills clopidogrel 75 mg Tab, 75 mg= 1 tab(s), Oral, Daily, 1 refills DilTIAZem (Eqv-Cardizem CD) 120 mg/24 hours oral capsule, extended release, See Instructions, 3 refills Lopressor 25 mg oral tablet, 25 mg= 1 tab(s), Oral, BID, 1 refills losartan 25 mg Tab, 25 mg= 1 tab(s), Oral, Daily, 1 refills montelukast 10 mg Tab, 10 mg= 1 tab(s), Oral, Bedtime, 4 refills Tylenol 325 mg Tab, Oral, q4hr, PRN Xhance 93 mcg/inh nasal spray, 2 spray(s), Nasal, BID, 5 refills Allergies No Known Medication Allergies Social History Alcohol - Low Risk, 12/24/2022 Current, Beer, 1-2 times per week, Household alcohol concerns: No., 12/24/2022 Substance Abuse - Denies Substance Abuse, 12/24/2022 Household substance abuse concerns: No., 12/24/2022 Tobacco - Medium Risk, 12/24/2022 5-9 cigarettes (between 1/4 to 1/2 pack)/day in last 30 days, Smoker, current status unknown Tobacco Use:. Never Smokeless Tobacco Use:. Cigarettes, Started age 24.0 Years. Household tobacco concerns: No. Yes, 05/07/2024 Family History Bipolar: Mother. Hypertension: Father. Renal failure syndrome: Mother. Immunizations Vaccine Date Status Comments influenza virus vaccine, inactivated - Not Given Patient Refuses SARS-CoV-2 (COVID-19) mRNA BNT-162b2 vax 08/29/2021 Recorded 2022-12-23: [id number] SARS-CoV-2 (COVID-19) mRNA BNT-162b2 vax 12/01/2020 Recorded SARS-CoV-2 (COVID-19) mRNA BNT-162b2 vax 11/10/2020 Recorded influenza, whole 07/15/2007 Recorded hepatitis B adult vaccine 08/30/2005 Recorded hepatitis B adult vaccine 05/31/2005 Recorded hepatitis B adult vaccine 04/29/2005 Recorded [1] NM Myocardial Spect Rest/Stress 1 Day; Napoleon Mason MD 04/16/2024 11:03 EDT [2] Echo Transthoracic Complete; Napoleon Mason MD 04/16/2024 08:47 EDT Result Comment: Electronical ly Signed By: Otto Abreu PA-C\.br\Date and Time Signed: 05/07/24 11:25 EDT\.br\Electronically Co-Signed By: Ainsley Short.br\Date and Time Co-Signed: 05/07/24 10:46 EDT OPERATIVE REPORT Observed: 04/27/2024 8:50 AM Status: F Source: [facility] Operative Report Indication for Surgery Angina, known CAD, abnormal stress Preoperative Diagnosis Known CAD, presumed new narrowing Postoperative Diagnosis Confirmed multivessel CAD IFR guided PCI of the mid LAD with CRISTINA Operation Coronary angiography Left ventriculography Hemodynamic measurements of the left ventricle IFR of the mid LAD PCI of the mid LAD with CRISTINA x 1 This note is completed immediately following the procedure the date and time of this procedure are the same as this note. Surgeon(s) Napoleon Mason MD Anesthesia Conscious sedation Estimated Blood Loss Trivial Findings LMT: Normal left main trunk with bifurcation LAD: Normal caliber with patent previously placed proximal stents, distal edge has 70% stenosis, reaches the apex. LCx: Normal caliber with mild irregularity and less than 30% stenosis, reaches the lateral wall. RCA: Normal caliber with 80% proximal stenosis, 80 to 90% mid heavily calcified, dominant, reaches the inferior wall. Hemodynamics: Normal LVEDP with no gradient across the aortic valve. Left ventriculography: Normal LV systolic function, EF 55-60%, no wall motion abnormalities and normal chamber size with no mitral regurgitation. iFR note: Successful IFR of the mid LAD is significant PCI note: Success PCI mid LAD with 70% stenosis PARUL-3 flow reduced to 0% residual to reflow after implantation of a Xience 2.5/12 postdilated 2.5 NC at high pressure Conclusions: Significant multivessel CAD, PCI of LAD performed. Will need staged PCI of the RCA plan to do so with shockwave lithotripsy due to heavy calcification. CAD: DAPT, beta-jeremiah, statin, risk factor modification. Importance of antiplatelet compliance was emphasized including risk of stent thrombosis or . The patient understands as well as his accompanying family member/friend that the patient may have stent thrombosis or heart attack and the patient agrees. I myself have specifically counseled the patient regarding stent thrombosis risk including and the patient will additionally be counseled by the Counseling Aide team and in follow-up. Complications None Technique Following full and informed consent the patient was brought to the Counseling Aide where sterile prep and drape were administered in usual fashion. Anesthesia was obtained in the right wrist with lidocaine after administration of conscious sedation. A 5/6 slender Terumo sheath was placed in the right radial artery without complication. Nitroglycerin and nicardipine were given via the sheath and heparin was given intravenously. A 5 [place] JACKE catheter was advanced and selectively engaged in the left main coronary artery and right coronary artery each, where selective injections were performed. A pigtail catheter was placed in the left ventricle where hemodynamic measurements the left ventricle were made and a bolus was given for left ventriculography. A pullback gradient was obtained. A guide catheter was advanced and selectively engaged into the LMT following which the flow wire was advanced into the proximal vessel and normalized. The flow wire was advanced across the lesion of the mid LAD following which an IFR measurement was obtained. The wire was used for intervention, predilatation performed with a compliant balloon, stented with a drug-eluting stent x 1, postdilated noncompliant balloon high-pressure. Completion angiography was performed. The sheath was removed with hemostasis obtained by D- Stat radial device at the end of the procedure without complication. Result Comment: Electronical ly Signed By: Napoleon Mason MD\.br\Date and Time Signed: 05/07/24 11:53 EDT INPATIENT PATIENT SUMMARY Observed: 03/30 10:59 AM Status: C Source: [facility] Inpatient Patient Summary [address] [address] Patient Discharge Instructions PERSON INFORMATION Name: MARIA EM Date of : 1960 Current Date: 04/23/2024 10:59:12 PHYSICIANS Admitting Physician: Napoleon Mason MD Primary Care Physician: Brii March MD PCP Comment: Discharge Diagnosis: Condition at Discharge: Improved MARIA EM has been given the following list of follow-up instructions, prescriptions, and patient education materials: PATIENT FOLLOW-UP INFORMATION Diet: Discharge Activity: Discharge Restrictions: No driving for 24 hrs, Do not operate machinery or tools, Do not make important decisions for 24 hours, Do not drink alcoholic beverages for 24 hours Wound Care Instructions: Remove dressing as instructed Remove Your Dressing In Days Call Your Doctor For: IF UNABLE TO CONTACT YOUR PHYSICIAN AND YOU FEEL IT IS AN EMERGENCY, GO TO THE NEAREST EMERGENCY ROOM OR CALL 911 Home Treatment: Devices/Equipment: None Special Services: Additional Instructions: Primary Care Physician to provide the following pending test results: None Follow up: With: Address: When: Otto Abreu [address] [place] [id number] [phone] Business (1) 05/07/2024 10:15 AM In the event that this physician does not participate in your insurance network, please consult with your insurance company to find a nearby participating provider. Type Location [facility] Cardiology Follow Up (FT) [facility] 05/07/2024 10:15 AM 05/07/2024 10:30 AM Confirmed Comment: MARIA ANTONIA Grace SHERRI L, have received the attached patient education materials/instructions and have verbalized understanding: Patient Signature Date Clinican/Nurse Signature Date HERE ARE THE MEDICATION CHANGES THAT OCCURRED DURING YOUR HOSPITAL STAY New Medications [facility] [address], [address] [facility] [place], [place] [id number], [phone] aspirin (aspirin 81 mg Oral EC Tab) 1 Tablets By Mouth every day. Refills: 3. Last Dose: Next Dose: Medications to Continue with No Changes Other Medications acetaminophen (Tylenol 325 mg Tab) By Mouth every 4 hours as needed Pain/Fever. Last Dose: Next Dose: albuterol (Albuterol (Eqv-ProAir HFA) 90 mcg/inh inhalation aerosol) 2 Puffs Inhalation every 4 hours as needed w. Refills: 3. Last Dose: Next Dose: atorvastatin (atorvastatin 80 mg Tab) 1 Tablets By Mouth every day. TAKE ONE TABLET BY MOUTH DAILY. Refills: 3. Last Dose: Next Dose: clopidogrel (clopidogrel 75 mg Tab) 1 Tablets By Mouth every day. TAKE ONE TABLET BY MOUTH DAILY. Refills: 1. Last Dose: Next Dose: diltiazem (DilTIAZem (Eqv-Cardizem CD) 120 mg/24 hours oral capsule, extended release) TAKE ONE CAPSULE BY MOUTH ONCE DAILY. Refills: 3. Last Dose: Next Dose: fluticasone nasal (Xhance 93 mcg/inh nasal spray) 2 Sprays Nasal Inhalation 2 times a day. INSTILL 2 SPRAYS (1 SPRAY IN EACH NOSTRIL) TWICE A DAY FOR 30 DAYS. Refills: 5. Last Dose: Next Dose: losartan (losartan 25 mg Tab) 1 Tablets By Mouth every day. TAKE ONE TABLET BY MOUTH ONCE DAILY. Refills: 1. Last Dose: Next Dose: metoprolol (Lopressor 25 mg oral tablet) 1 Tablets By Mouth 2 times a day. TAKE ONE TABLET BY MOUTH TWICE A DAY. Refills: 1. Last Dose: Next Dose: montelukast (montelukast 10 mg Tab) 1 Tablets By Mouth at bedtime. TAKE ONE TABLET BY MOUTH ONCE DAILY. Refills: 4. Last Dose: Next Dose: No Longer Take the Following Medications meloxicam (meloxicam 15 mg Tab) 1 Tablets By Mouth every day. Refills: 0. Comment: MEDICATION LIST PROVIDED FOR YOU IS A LIST OF YOUR CURRENT MEDICATIONS. PLEASE CARRY THIS WITH YOU AT ALL TIMES. acetaminophen (Tylenol 325 mg Tab) By Mouth every 4 hours as needed Pain/Fever. albuterol (Albuterol (Eqv-ProAir HFA) 90 mcg/inh inhalation aerosol) 2 Puffs Inhalation every 4 hours as needed w. Refills: 3. aspirin (aspirin 81 mg Oral EC Tab) 1 Tablets By Mouth every day. Refills: 3. atorvastatin (atorvastatin 80 mg Tab) 1 Tablets By Mouth every day. TAKE ONE TABLET BY MOUTH DAILY. Refills: 3. clopidogrel (clopidogrel 75 mg Tab) 1 Tablets By Mouth every day. TAKE ONE TABLET BY MOUTH DAILY. Refills: 1. diltiazem (DilTIAZem (Eqv-Cardizem CD) 120 mg/24 hours oral capsule, extended release) TAKE ONE CAPSULE BY MOUTH ONCE DAILY. Refills: 3. fluticasone nasal (Xhance 93 mcg/inh nasal spray) 2 Sprays Nasal Inhalation 2 times a day. INSTILL 2 SPRAYS (1 SPRAY IN EACH NOSTRIL) TWICE A DAY FOR 30 DAYS. Refills: 5. losartan (losartan 25 mg Tab) 1 Tablets By Mouth every day. TAKE ONE TABLET BY MOUTH ONCE DAILY. Refills: 1. metoprolol (Lopressor 25 mg oral tablet) 1 Tablets By Mouth 2 times a day. TAKE ONE TABLET BY MOUTH TWICE A DAY. Refills: 1. montelukast (montelukast 10 mg Tab) 1 Tablets By Mouth at bedtime. TAKE ONE TABLET BY MOUTH ONCE DAILY. Refills: 4. Pharmacy Information: [facility] Comment: PATIENT EDUCATION INFORMATION Instructions: [place], [place] Cardiovascular PCI DISCHARGE INSTRUCTIONS Diet: ? Resume pre-procedure diet. ? Increase water intake the next 2 days to flush dye out of the body. Activity: If radial access: ? Limit your activity today. Do not operate a vehicle, machinery or power tools. ? NO LIFTING OVER 3 POUNDS for 3 days. ? Do not bend your wrist for 24 hours. ? May resume driving in 24 hours. ? Let pain/discomfort guide your activity. If you are having pain, stop. ? No sexual activity for 1 week. ? Return to the Emergency Room if you have trouble breathing, walking or nausea and vomiting. Medications: ? Resume pre-procedure medication, unless otherwise directed. ? Hold the following medications for 48 hours post procedure: Actoplus Met Glucophage Glucophage XR Glucovance Avandamet Fortamet Apo-metformin Glycon Ace-metformin Glumetza Janumet Metaglip Riomet Glycomet ? Minimal pain, soreness and/or discomfort is expected. ? If you are prescribed an aspirin and/or antiplatelet (such as Plavix, Brilinta or Effient) do NOT stop taking these medications for any reason without talking to your packaging line operator Site Care: ? Do not remove dressing for 24 hours unless it becomes saturated, then replace. ? Keep site clean and dry; inspect site daily. ? Do not use any lotions, powders, or ointments at the groin or wrist site for 1 week. ? May shower 24 hours after the procedure. Clean site with soap and water. Pat dry and apply band aid. No tub baths, swimming or hot tubs for 3 days. Post Procedure: ? Soreness and tenderness to the site can last up to one week. ? Bruising may occur to site. ? A responsible adult should be with you for the first 24 hours after you arrive home. ? Keep follow-up appointment. ? Carry your stent card with you at all times. This provides information about your heart disease for any doctor who cares for you. ? No smoking for 24 hours as it increases the risk of developing blood clots. ? If you are interested in smoking cessation, contact [facility] [facility] [place] [phone], ext. [phone]. ? In the event you are unable to reach your physician, please call [facility] at [phone] and the boat dock operator will assist you. Seek Medicare Care for: ? Bleeding: Apply continuous pressure to the site and Call 911. ? Should the arm or leg become cold, numb, blue or white call your physician immediately. ? Signs of infection are redness, warmth, swelling, getting more sore, colored drainage, fever or chills ? Chest pain ? Blood in your urine or stool ? Black tarry stools ? Medication Leaflets: aspirin (oral) ( pir in) Aspi-Cor, Jennifer Plus, Durlaza, Ecotrin, Miniprin, [place]alore What is the most important information I should know about aspirin? Aspirin can cause Jignesh's syndrome, a serious and sometimes fatal condition in children. What is aspirin? Aspirin is a salicylate (fu-IOZ-lw-ate) that is used to treat pain, and reduce fever or inflammation. Aspirin is sometimes used to treat or prevent heart attacks, strokes, and chest pain (angina). Aspirin should be used for these conditions only under the supervision of a doctor. Aspirin may also be used for purposes not listed in this medication guide. What should I discuss with my healthcare provider before taking aspirin? Using aspirin in a child or teenager with flu symptoms or chickenpox can cause a serious or fatal condition called Jignesh's syndrome. You should not use aspirin if you are allergic to it, or if you have: ?? a recent history of stomach or intestinal bleeding; ? a bleeding disorder such as hemophilia; or ? if you have ever had an asthma attack or severe allergic reaction after taking aspirin or an NSAID (non-steroidal anti-inflammatory drug). Tell your doctor if you have ever had: ?? asthma or seasonal allergies; ? stomach ulcers; ? liver disease; ? kidney disease; ? a bleeding or blood clotting disorder; ? gout; or ? heart disease, high blood pressure, or congestive heart failure. Taking aspirin during late may cause bleeding in the mother or the baby during delivery. Tell your doctor if you are or plan to become . You should not breastfeed while using this medicine. How should I take aspirin? Use exactly as directed on the label, or as prescribed by your doctor. Always follow directions on the medicine label about giving aspirin to a child. Take with food if aspirin upsets your stomach. You must chew the chewable tablet before you swallow it. Do not crush, chew, break, or open an enteric-coated or delayed/extended-release pill. Swallow it whole. Tell your doctor if you have a planned surgery. Store at room temperature away from moisture and heat. Do not use aspirin if you smell a strong vinegar odor in the aspirin bottle. The medicine may no longer be effective. What happens if I miss a dose? Aspirin is used when needed. If you are on a dosing schedule, skip any missed dose. Do not use two doses at one time. What happens if I overdose? Seek emergency medical attention or call the Poison Help line at . Overdose may cause stomach pain, vomiting, diarrhea, vision or hearing problems, fast or slow breathing, or confusion. What should I avoid while taking aspirin? Avoid alcohol. Heavy drinking can increase your risk of stomach bleeding. Avoid taking ibuprofen if you take aspirin to prevent stroke or heart attack. Ibuprofen can make aspirin less effective in protecting your heart and blood vessels. Ask your doctor how far apart your doses should be. Ask a doctor or pharmacist before using other medicines for pain, fever, swelling, or cold/flu symptoms. They may contain ingredients similar to aspirin (such as magnesium salicylate, ibuprofen, ketoprofen, or naproxen). What are the possible side effects of aspirin? Get emergency medical help if you have signs of an allergic reaction: hives; difficult breathing; swelling of your face, lips, tongue, or throat. Stop using aspirin and call your doctor at once if you have: ?? ringing in your ears, confusion, hallucinations, rapid breathing, seizure (convulsions); ? severe nausea, vomiting, or stomach pain; ? bloody or tarry stools, coughing up blood or vomit that looks like coffee grounds; ? fever lasting longer than 3 days; or ? swelling, or pain lasting longer than 10 days. Common side effects may include: ?? upset stomach, heartburn; ? drowsiness; or ? mild headache. This is not a complete list of side effects and others may occur. Call your doctor for medical advice about side effects. You may report side effects to FDA at 2-461-PVN-3440. What other drugs will affect aspirin? Ask your doctor before using aspirin if you take an antidepressant. Taking certain antidepressants with aspirin may cause you to bruise or bleed easily. Ask a doctor or pharmacist before using aspirin with any other medications, especially: ?? a blood thinner (warfarin, Coumadin, Jantoven), or other medication used to prevent blood clots; or ? other salicylates such as Nuprin Backache Caplet, Kaopectate, KneeRelief, Pamprin Cramp Formula, Pepto-Bismol, Tricosal, Trilisate, and others. This list is not complete. Other drugs may affect aspirin, including prescription and gsux-wbe-ijtqaxj medicines, vitamins, and herbal products. Not all possible drug interactions are listed here. Where can I get more information? Your pharmacist can provide more information about aspirin. Remember, keep this and all other medicines out of the reach of children, never share your medicines with others, and use this medication only for the indication prescribed. Every effort has been made to ensure that the information provided by [employer] ('[employer]') is accurate, up-to-date, and complete, but no guarantee is made to that effect. Drug information contained herein may be time sensitive. [employer] information has been compiled for use by healthcare practitioners and consumers in the [place] and therefore [employer] does not warrant that uses outside of the [place] are appropriate, unless specifically indicated otherwise. [employer] (previously [employer]s drug information does not endorse drugs, diagnose patients or recommend therapy. [employer]s drug information is an informational resource designed to assist licensed healthcare practitioners in caring for their patients and/or to serve consumers viewing this service as a supplement to, and not a substitute for, the expertise, skill, knowledge and judgment of healthcare practitioners. The absence of a warning for a given drug or drug combination in no way should be construed to indicate that the drug or drug combination is safe, effective or appropriate for any given patient. [employer] does not assume any responsibility for any aspect of healthcare administered with the aid of information [employer] provides. The information contained herein is not intended to cover all possible uses, directions, precautions, warnings, drug interactions, allergic reactions, or adverse effects. If you have questions about the drugs you are taking, check with your doctor, nurse or pharmacist. Copyright 2627-7110 [facility] [employer] Version: 18.01. Revision Date: 04/21/2023. You may receive a survey from [employer] asking you to rate your care experience. Your feedback is important and will help us understand what we do well and how we can improve the quality of care we provide to you, your loved ones and our community. It?s an honor to serve you. Thank you for choosing [facility] INPATIENT CLINICAL SUMMARY Observed: 10:59 AM Status: C Source: [facility] Inpatient Clinical Summary [place] [id number] Clinical Summary Person Information: Name: MARIA EM Age: 63 Years : 1960 Sex: Female PCP: Brii March MD Marital Status: Race: White Ethnicity: Non- or Language: Libyan Visit Id: Visit Reason: I94.39 I94.31 Speciality: Acuity: Enc Type: Ambulatory/Same Day Surgery Med Service: Cardiovascular Arrival: 04/23/2024 06:51:53 Discharge: Dispo Type: Address: [address] [place] [id number] Provider Notes: Diagnosis: Problems Active Changes in skin texture Left foot pain Left shoulder pain Smoking trying to quit Fatigue Screening for thyroid disorder Severe claudication Hyperlipidemia Essential hypertension Smoker Smoking Status: Current Every Day Smoker Functional Status: Sensory Deficits: Uncorrected visual impairment History of Falls: Mobility Assistance Prior to Admission: ADLs: Independent Current Level of Assistance for Self-Care/Mobility: Cognitive Status: Allergies No Known Medication Allergies Measurements: Height: 167 cm Weight: 56.8 kg Blood Pressure: 126 mmHg / 66 mmHg BMI: 20.37 kg/m2 Procedures Cardiac catheterization, left heart (04/23/2024) PCI - Percutaneous coronary intervention (04/23/2024) Immunizations No Immunizations Documented This Visit Final Med List: acetaminophen (Tylenol 325 mg Tab) By Mouth every 4 hours as needed Pain/Fever. albuterol (Albuterol (Eqv-ProAir HFA) 90 mcg/inh inhalation aerosol) 2 Puffs Inhalation every 4 hours as needed w. Refills: 3. aspirin (aspirin 81 mg Oral EC Tab) 1 Tablets By Mouth every day. Refills: 3. atorvastatin (atorvastatin 80 mg Tab) 1 Tablets By Mouth every day. TAKE ONE TABLET BY MOUTH DAILY. Refills: 3. clopidogrel (clopidogrel 75 mg Tab) 1 Tablets By Mouth every day. TAKE ONE TABLET BY MOUTH DAILY. Refills: 1. diltiazem (DilTIAZem (Eqv-Cardizem CD) 120 mg/24 hours oral capsule, extended release) TAKE ONE CAPSULE BY MOUTH ONCE DAILY. Refills: 3. fluticasone nasal (Xhance 93 mcg/inh nasal spray) 2 Sprays Nasal Inhalation 2 times a day. INSTILL 2 SPRAYS (1 SPRAY IN EACH NOSTRIL) TWICE A DAY FOR 30 DAYS. Refills: 5. losartan (losartan 25 mg Tab) 1 Tablets By Mouth every day. TAKE ONE TABLET BY MOUTH ONCE DAILY. Refills: 1. metoprolol (Lopressor 25 mg oral tablet) 1 Tablets By Mouth 2 times a day. TAKE ONE TABLET BY MOUTH TWICE A DAY. Refills: 1. montelukast (montelukast 10 mg Tab) 1 Tablets By Mouth at bedtime. TAKE ONE TABLET BY MOUTH ONCE DAILY. Refills: 4. Care Team Members: Attending Physician: Napoleon Mason MD Consulting Physician: Referring Physician: Napoleon Mason MD Follow up: With: Address: When: Otto Abreu [address] [place] [id number] [phone] Business (1) 05/07/2024 10:15 AM Type Location Start Finish State Cardiology Follow Up (FT) [facility]iology [facility] 05/07/2024 10:15 AM 05/07/2024 10:30 AM Confirmed Patient Education Information: CV - Cardiovascular PCI Discharge Instructions (CUSTOM) aspirin CARDIOLOGY PROGRESS NOTE Observed: 04/23 10:27 AM Status: F Source: [facility] Cardiology Progress Note Post PCI GDMT: Patient is prescribed DAPT - aspirin 81 mg daily will be sent to pharmacy and pt is already taking Plavix 75mg QD. Patient is already prescribed statin - atorvastatin 80 mg daily. Patient is already prescribed beta jeremiah - metoprolol 25mg BID. Cardiac rehab as outpatient. Result Comment: Electronical ly Signed By: Brady COOPER, Otto Lawson\.doug\Date and Time Signed: 04/23/24 10:30 EDT PATIENT EDUCATION - TEXT Observed: 04/23 10:07 AM Status: C Source: [facility] Patient Education - Text [place], [place] Cardiovascular PCI DISCHARGE INSTRUCTIONS Diet: ? Resume pre-procedure diet. ? Increase water intake the next 2 days to flush dye out of the body. Activity: If radial access: ? Limit your activity today. Do not operate a vehicle, machinery or power tools. ? NO LIFTING OVER 3 POUNDS for 3 days. ? Do not bend your wrist for 24 hours. ? May resume driving in 24 hours. ? Let pain/discomfort guide your activity. If you are having pain, stop. ? No sexual activity for 1 week. ? Return to the Emergency Room if you have trouble breathing, walking or nausea and vomiting. Medications: ? Resume pre-procedure medication, unless otherwise directed. ? Hold the following medications for 48 hours post procedure: Actoplus Met Glucophage Glucophage XR Glucovance Avandamet Fortamet Apo-metformin Glycon Ace-metformin Glumetza Janumet Metaglip Riomet Glycomet ? Minimal pain, soreness and/or discomfort is expected. ? If you are prescribed an aspirin and/or antiplatelet (such as Plavix, Brilinta or Effient) do NOT stop taking these medications for any reason without talking to your packaging line operator Site Care: ? Do not remove dressing for 24 hours unless it becomes saturated, then replace. ? Keep site clean and dry; inspect site daily. ? Do not use any lotions, powders, or ointments at the groin or wrist site for 1 week. ? May shower 24 hours after the procedure. Clean site with soap and water. Pat dry and apply band aid. No tub baths, swimming or hot tubs for 3 days. Post Procedure: ? Soreness and tenderness to the site can last up to one week. ? Bruising may occur to site. ? A responsible adult should be with you for the first 24 hours after you arrive home. ? Keep follow-up appointment. ? Carry your stent card with you at all times. This provides information about your heart disease for any doctor who cares for you. ? No smoking for 24 hours as it increases the risk of developing blood clots. ? If you are interested in smoking cessation, contact [facility] [place] [phone], ext. [phone]. ? In the event you are unable to reach your physician, please call [facility] at [phone] and the boat dock operator will assist you. Seek Medicare Care for: ? Bleeding: Apply continuous pressure to the site and Call 911. ? Should the arm or leg become cold, numb, blue or white call your physician immediately. ? Signs of infection are redness, warmth, swelling, getting more sore, colored drainage, fever or chills ? Chest pain ? Blood in your urine or stool ? Black tarry stools ? PROGRESS NOTE-PHYSICIAN Observed: 2023 8:00 AM Status: F Source: [facility] Progress Note-Physician Procedure [facility] poss PCI via right radial Patient seen and examined. The risk/benefits of the procedure were thoroughly discussed with patient including specific attention to lack of onsite surgical backup and risk of kandace covid, and the patient agrees to proceed. Airway Assessment: Class I: Visualization of the soft palate, fauces, uvula, anterior and posterior pillars Airway Abnormalities: none ASA Classification: ASA 2: Mild systemic disease Risks/Benefits of IV Sedation: Have been explained IV Sedation Plan: Patient agrees to IV sedation plan Result Comment: Electronical ly Signed By: Marlon YE, Napoleon Mancini\.br\Date and Time Signed: 04/28/24 13:49 EDT PROGRESS NOTE-PHYSICIAN Observed: 2023 8:00 AM Status: F Source: [facility] Progress Note-Physician Procedure C poss PCI via right radial for angina, known CAD, abnormal stress Patient seen and examined. The risk/benefits of the procedure were thoroughly discussed with patient including specific attention to lack of onsite surgical backup and risk of kandace covid, and the patient agrees to proceed. Airway Assessment: Class I: Visualization of the soft palate, fauces, uvula, anterior and posterior pillars Airway Abnormalities: none ASA Classification: ASA 2: Mild systemic disease Risks/Benefits of IV Sedation: Have been explained IV Sedation Plan: Patient agrees to IV sedation plan for Result Comment: Electronical ly Signed By: Marlon YE, Napoleon Mancini\.br\Date and Time Signed: 05/07/24 11:49 EDT CBC W/ AUTO DIFF Collected: 04/22/2024 12:47 PM Stat us: F Source: [facility] TYPE CODE TESTS RESULT OUT OF RANGE REFERENCE UNITS LAB 66278-4(LOINC) LEUKOCYTES^^LORENZO ECTED FOR NUCLEATED ERYTHROCYTES:NCN C:PT:BLD:QN:AUTO MATED COUNT 6.4 Normal 4.0-11.0 E9/L LAB 789-8(LOINC) ERYTHROCYTES:NCN C:PT:BLD:QN:AUTO MATED COUNT 3.8 Low 4.3-5.9 E12/L LAB 718-7(LOINC) HEMOGLOBIN:MCNC: PT:BLD:QN: 10.1 Low 12.0-16.0 gm/dL LAB 4544-3(LOINC) HEMATOCRIT:VFR:P T:BLD:QN:AUTOMAT ED COUNT 30.9 Low 34.0-46.0 % LAB 788-0(LOINC) ERYTHROCYTE DISTRIBUTION WIDTH:RATIO:PT:R BC:QN:AUTOMATED COUNT 18.5 High 10.9-14.2 % LAB 785-6(LOINC) ERYTHROCYTE MEAN CORPUSCULAR HEMOGLOBIN:ENTMA SS:PT:RBC:QN:AUT OMATED COUNT 26.8 Low 27.0-34.0 pg LAB 786-4(LOINC) ERYTHROCYTE MEAN CORPUSCULAR HEMOGLOBIN CONCENTRATION:MC NC:PT:RBC:QN:AUT OMATED COUNT 32.6 Normal 31.4-36.0 gm/dL LAB 787-2(LOINC) ERYTHROCYTE MEAN CORPUSCULAR VOLUME:ENTVOL:PT :RBC:QN:AUTOMATE D COUNT 82.2 Normal 80.0-100.0 fL LAB 97417-6(INC) PLATELET MEAN VOLUME:ENTVOL:PT :BLD:QN:AUTOMATE D COUNT 6.9 Normal 6.4-10.8 fL LAB 16242233(INC) Platelet 304.0 Normal 150.0-500.0 E9/ L LAB 02449-4(INC) NEUTROPHILS/100 LEUKOCYTES:NFR:P T:BLD:QN: 61.7 Normal 36.0-75.0 % LAB 731-0(INC) LYMPHOCYTES:NCNC :PT:BLD:QN:AUTOM ATED COUNT 23.5 Normal 14.0-50.0 % LAB 742-7(INC) MONOCYTES:NCNC:P T:BLD:QN:AUTOMAT ED COUNT 0.7 Normal 0.2-1.0 E9/L LAB 713-8(INC) EOSINOPHILS/100 LEUKOCYTES:NFR:P T:BLD:QN:AUTOMAT ED COUNT 3.3 Normal 0.0-8.0 % LAB 704-7(INC) BASOPHILS:NCNC:P T:BLD:QN:AUTOMAT ED COUNT 0.5 Normal 0.0-2.0 % LAB 751-8(INC) NEUTROPHILS:NCNC :PT:BLD:QN:AUTOM ATED COUNT 4.0 Normal 2.0-7.5 E9/L LAB 10100-8(INC) LYMPHOCYTES:NCNC :PT:BLD:QN: 1.5 Normal 1.0-4.0 E9/L LAB 30361-1(LOINC) EOSINOPHILS:NCNC :PT:BLD:QN: 0.2 Normal 0.0-0.5 E9/L LAB 78242-6(INC) BASOPHILS/LEUKOC YTES:NFR.DF:PT:B LD:QN:AUTOMATED COUNT 0.0 Normal 0.0-0.2 E9/L Performed By: #### [id number] # ### [facility] [address] [place] [id number] EGFR Collected: 4 12:47 PM Status: F Source: [facility] Order Comment: Order added b y Discern Expert. TYPE CODE TESTS RESULT OUT OF RANGE REFERENCE UNITS LAB [id number]([facility]) eGFR 99 Normal >=59 mL/min/1 .7 3 m2 Performed By: #### [id number] #### [facility] [address] [place] [address] BMP Collected: 4 12:47 PM Status: F Source: [facility] TYPE CODE TESTS RESULT OUT OF RANGE REFERENCE UNITS LAB 2345-7([facility]) GLUCOSE:MCNC :PT:SER/PLAS :QN: 81 Normal 55-199 mg/dL LAB 3094-0([facility]) UREA NITROGEN:MCN C:PT:SER/LUCIAN S:QN: 10 Normal 5-21 mg/dL LAB 2160-0([facility]) CREATININE:M CNC:PT:SER/P LAS:QN: 0.6 Normal 0.5-1.3 mg/dL LAB 3097-3([facility]) UREA NITROGEN/CRE ATININE:MRTO :PT:SER/PLAS :QN: 17 Normal 10-20 No Units LAB 43942-5([facility]) CALCIUM:MCNC :PT:SER/PLAS :QN: 9.8 Normal 8.9-11.1 mg/dL LAB 2951-2([facility]) SODIUM:SCNC: PT:SER/PLAS: QN: 130 Low 135-145 mmol/L LAB 2823-3([facility]) POTASSIUM:SC NC:PT:SER/PL :QN: 4.0 Normal 3.5-5.3 mmol/L LAB 2075-0([facility]) CHLORIDE:SCN C:PT:SER/LUCIAN S:QN: 100 Low 101-111 mmol/L LAB 2028-9([facility]) CARBON DIOXIDE:SCNC :PT:SER/PLAS :QN: 20 Low 21-31 mmol/L LAB 61562-0([facility]) ANION GAP:SCNC:PT: SER/PLAS:QN: 14 Normal 6-16 mEq/L Performed By: #### [id number] # ### [facility] [address] [place] [address] ECHO TRANSTHORACIC COMPLETE Observed: 8:46 AM Status: F Source: [facility] Echocardiology Procedure Exam Date/Time Accession # Ordering Dr. Ware Transthoracic 04/16/2024 08:47 EDT [id number] Marlon YE, Napoleon Mancini CPT code 90319 60143 Reason for Exam (Echo Transthoracic Complete) Abnormal ECG, HTN, PVD I10;Other (please specify) Report Version: 1 Study ID: [id number] [facility] [address] [place] [address] Adult Echocardiogram Report Name: MARIA EM Study Date: 04/16/2024, 7: 15 AM Patient Location: [facility] : 1960 (MM/DD/YYYY) Gender: Female Age: 63 Years Height: 167.64 cm BP: 188 / 90 mmHg Weight: 57.607 kg HR: 62 bpm BSA: 1.65 m? Ordering Physician: Napoleon Mason Referring Physician: Napoleon Mason Performed By: Kira Valdez MARYAM Reason For Study: Abnormal ECG, HTN, PVD History: HTN, PVD, Bundle branch block Interpretation Summary Ejection Fraction = 50-55%. Normal LV size and low normal LV systolic function. Normal RV. No significant valve disease. Anteroapical wall motion abnormality. Normal diastolic filling pattern. Normal estimated PA pressure. Procedure A complete two-dimensional transthoracic echocardiogram was performed (2D, M- mode, spectral and color flow Doppler). Study quality is good. Left Ventricle The left ventricle is normal in size. mild to moderate left ventricular hypertrophy. Ejection Fraction = 50-55%. Anteroapical hypokinesis. Normal diastolic function. Echocardiology Report Left Atrium The left atrial size is normal. Right Atrium Right atrial size is normal. Right Ventricle The right ventricular systolic function is normal. The right ventricle is normal size. The right ventricular wall motion is normal. Aortic Valve The aortic valve is trileaflet. No aortic regurgitation. There is no aortic stenosis. Mitral Valve The mitral valve is normal in structure and function. There is no mitral regurgitation noted. No mitral valve stenosis. Tricuspid Valve Structurally normal tricuspid valve. No evidence of tricuspid regurgitation. Right ventricular systolic pressure is normal. Pulmonic Valve No evidence of stenosis. There is no pulmonic valve regurgitation. Arteries The aortic root is normal in size. Normal ascending aorta. Pulmonary artery diameter is normal. Venous The inferior vena cava is normal in size, and collapses normally with respiration. Effusion There is no pericardial effusion. Left Ventricle IVSd: 1.30 cm LVIDd: 4.5 cm LVPWd: 1.15 cm LVIDs: 3.1 cm EDV(MOD-sp4): 93.5 ml LVLd ap4: 7.5 cm ESV(MOD-sp4): 62.5 ml LVLs ap4: 7.3 cm EDV(MOD-sp2): 98.2 ml LVLd ap2: 8.2 cm ESV(MOD-sp2): 31.3 ml LVLs ap2: 7.2 cm Right Ventricle TAPSE: 2.8 cm Aortic Valve LVOT diam: 1.72 cm LV V1 max: 113.8 cm/sec LV V1 max P.2 mmHg Ao max P.2 mmHg Ao V2 max: 160.0 cm/sec Tricuspid Valve TR max P.7 mmHg TR max agustina: 204.1 cm/sec Aorta Ao root diam: 2.40 cm Ao Sinus of Valsalva: 2.6 cm Ao Sinotubular Junction: 2.35 cm Atria LA dimension: 3.8 cm Diastolic funtion Med Peak E' Agustina: 6.4 cm/sec Lat Peak E' Agustina: 8.2 cm/sec Echocardiology Report MV dec time: 0.17 sec MV E max agustina: 86.3 cm/sec MV A max agustina: 57.2 cm/sec Ao max P.2 mmHg Ao root area: 4.5 cm? Ao root diam: 2.40 cm Ao Sinus of Valsalva: 2.6 cm Ao Sinotubular Junction: 2.35 cm Ao V2 max: 160.0 cm/sec AV VR: 0.71 LINCOLN(V,D): 1.66 cm? EDV(MOD-sp4): 93.5 ml EDV(Teich): 90.5 ml EF(MOD-sp4): 33.2 % EF(Teich): 56.9 % ESV(MOD-sp4): 62.5 ml ESV(Teich): 39.0 ml FS: 29.7 % IVC Diam: 1.30 cm IVSd: 1.30 cm LA dimension: 3.8 cm LV V1 max: 113.8 cm/sec LV V1 max P.2 mmHg LVIDd: 4.5 cm LVIDs: 3.1 cm LVLd ap4: 7.5 cm LVLs ap4: 7.3 cm LVOT area: 2.33 cm? LVOT diam: 1.72 cm LVPWd: 1.15 cm MV A max agustina: 57.2 cm/sec MV dec time: 0.17 sec MV E max agustina: 86.3 cm/sec MV E/A: 1.51 RAP systole: 3.0 mmHg RVDd: 2.7 cm RVIDd/LVIDd: 0.61 RVSP(TR): 19.7 mmHg SV(MOD-sp4): 31.0 ml TAPSE: 2.8 cm TR max P.7 mmHg TR max agustina: 204.1 cm/sec E/E' Lat: 10.6 E/E' Med: 13.4 EDV(MOD-sp2): 98.2 ml EF (MOD-bp): 55.7 % EF(MOD-sp2): 68.1 % ESV(MOD-sp2): 31.3 ml LA Vol Index: 45.4 ml/m? Lat Peak E' Agustina: 8.2 cm/sec LVLd ap2: 8.2 cm LVLs ap2: 7.2 cm Med Peak E' Agustina: 6.4 cm/sec Echocardiology Report Electronically signed by: Napoleon Mason MD 04/16/2024, 7: 03 PM FINAL REPORT Dictated: 04/16/2024 7:15 am Napoleon Mason MD Signed (Electronic Signature): 04/16/2024 7:03 pm Signed by: Napoleon Mason MD Transcribed by: [facility] Technologist: MARISA TRAN MYOCARDIAL SPECT REST/STRESS 1 DAY Observed: 04/16/2024 7:51 AM Status: F Source: [facility] Exam Date/Time: 04/16/2024 11:03 EDT Reason for Exam: R94.31;Other (please specify) Report [address] [address] Nuclear Stress Report Name: MARIA EM Study Date: 04/16/2024 09:03 AM Patient Location: [facility] : 1960 (M/d/yyyy) Gender: Female Age: 63 yrs Ethnicity: [facility] Reason For Study: Other (please specify) Ordering Physician: Napoleon Mason Referring Physician: Napoleon Mason Protocol 01293 Pharmacologic Lexiscan stress with Isotope. Study Protocol: One day rest/stress acquisition. Rest Dose Tc99m Cardiolite was administered. Rest Dose: 10 mCi IV. Stress Dose Stress Protocol: Lexiscan. Stress Dose: 30.0 mCi IV. Stress Parameters Normal blood pressure response. Stress Symptoms: None. ECG Rest EKG baseline is LBBB. ECG Peak No significant changes from baseline. No ST-T wave changes from baseline. Arrhythmia No arrhythmias. Image Quality Rest Images: Diagnostic in quality. Stress Images: Diagnostic in quality. SPECT Perfusion There is a large sized, partially reversible defect in the anteroseptal wall. Interpretation Summary EKG baseline is LBBB. Lexiscan stress test is negative. Report Rest Dose: 10 mCi IV. Stress Dose: 30.0 mCi IV. TID 1.17 EF 54% EDV 129 ml Nuclear images are abnormal for a large sized, partially reversible defect in the anteroseptal wall. Overall high risk stress test. FINAL REPORT Dictated: 04/16/2024 9:03 am Napoleon Mason MD Signed (Electronic Signature): 04/19/2024 9:43 am Signed by: Napoleon Mason MD Transcribed by: [facility] Technologist: [facility] C NOTE Observed: 03/24/2024 11:42 AM Status: F Source: [facility] HPI Staff Maria is a 63 year old female presenting for 3 week follow up GREGORIO 03/03/24 Left shoulder pain Started medrol dose pack and meloxicam Pain characteristics: Pain location: left shoulder Intensity:2/10 Pt states her left shoulder pain has improved since last OV. Left foot pain top outside left side , pt states medication didn't help he pain , pain is consistent sharp/throbbing pain. Walking with a limp. Right side cheek 1-2 months has small bump c/o pain if bumping it. History of Present Illness follow up for left shoulder pain and left foot pain Review of Systems PHQ Score Initial Depression Screen Score: 0 SCORE Physical Exam Vitals & Measurements HR: 64(Peripheral) RR: 18 BP: 116/62 SpO2: 95% HT: 66 in HT: 167.0 cm WT: 56.8 kg WT: 124.96 lb BMI: 20.37 General: alert, no acute distress ENMT: oral mucosa moist, no pharyngeal erythema or exudate Cardiovascular: regular rate and rhythm, normal peripheral perfusion Respiratory: Lungs CTA, respirations non labored Extremities: no deformity, no trauma Neurological: oriented x 4, LOC appropriate for age, CN II-XII intact, motor strength equal & normal bilaterally, speech normal Assessment/Plan 1. Left foot pain (M79.672: Pain in left foot) lateral left foot pain continues pt is limping due to the pain and is struggling to work. will send referral to Dr. Jackson. RTC 4 weeks Or[place]: [facility] [place] 2. Changes in skin texture (R23.4: Changes in skin texture) pt has area on right side of face that is raised, flaky and getting larger. will send to [facility] dermatology for further evaluation Or[place] [facility] [place] [facility] [place] 3. Left shoulder pain (M25.512: Pain in left shoulder) pt states the meloxicam and medrol dose pack helped the shoulder pain. denies any complaints about her shoulder today. 4. BMI 20.0-20.9, adult (Z68.20: Body mass index [BMI] 20.0-20.9, adult) BMI education given Ordered[place] [facility] [place] [facility] [place] 5. Smoker (F17.200: Nicotine dependence, unspecified, uncomplicated) consider not smoking Ordered: [facility] [place] [facility] [place] Follow-up No qualifying data available Problem List/Past Medical History Ongoing Changes in skin texture Essential hypertension Fatigue Hyperlipidemia Left foot pain Left shoulder pain Screening for thyroid disorder Severe claudication Smoker Smoking trying to quit Historical No qualifying data Procedure/Surgical History Angiography of artery of left lower extremity (12/29/2023), section (04/12/1993). Medications Albuterol (Eqv-ProAir HFA) 90 mcg/inh inhalation aerosol, 2 puff(s), Inhalation, q4hr, PRN, 3 refills atorvastatin 80 mg Tab, 80 mg= 1 tab(s), Oral, Daily, 3 refills clopidogrel 75 mg Tab, 75 mg= 1 tab(s), Oral, Daily, 1 refills DilTIAZem (Eqv-Cardizem CD) 120 mg/24 hours oral capsule, extended release, See Instructions, 3 refills Lopressor 25 mg oral tablet, 25 mg= 1 tab(s), Oral, BID, 1 refills losartan 25 mg Tab, 25 mg= 1 tab(s), Oral, Daily, 1 refills meloxicam 15 mg Tab, 15 mg= 1 tab(s), Oral, Daily montelukast 10 mg Tab, 10 mg= 1 tab(s), Oral, Bedtime, 4 refills Tylenol 325 mg Tab, Oral, q4hr, PRN Xhance 93 mcg/inh nasal spray, 2 spray(s), Nasal, BID, 5 refills Allergies No Known Medication Allergies Social History Alcohol - Low Risk, 12/24/2022 Current, Beer, 1-2 times per week, Household alcohol concerns: No., 12/24/2022 Substance Abuse - Denies Substance Abuse, 12/24/2022 Household substance abuse concerns: No., 12/24/2022 Tobacco - Medium Risk, 12/24/2022 5-9 cigarettes (between 1/4 to 1/2 pack)/day in last 30 days, Smoker, current status unknown Tobacco Use:. Never Smokeless Tobacco Use:. Cigarettes, Started age 24.0 Years. Household tobacco concerns: No. Yes, 03/24/2024 Family History Bipolar: Mother. Hypertension: Father. Renal failure syndrome: Mother. Immunizations Vaccine Date Status Comments influenza virus vaccine, inactivated - Not Given Patient Refuses SARS-CoV-2 (COVID-19) mRNA BNT-162b2 vax 08/29/2021 Recorded 2022-12-23: TPV60 SARS-CoV-2 (COVID-19) mRNA BNT-162b2 vax 12/01/2020 Recorded SARS-CoV-2 (COVID-19) mRNA BNT-162b2 vax 11/10/2020 Recorded influenza, whole 07/15/2007 Recorded hepatitis B adult vaccine 08/30/2005 Recorded hepatitis B adult vaccine 05/31/2005 Recorded hepatitis B adult vaccine 04/29/2005 Recorded Result Comment: Electronical ly Signed By: Sonja Staley\.br\Date and Time Signed: 03/24/24 11:42 EDT AMBULATORY VISIT SUMMARY Observed: 03/24 11:33 AM Status: F Source: [facility] MARIA EM Abebe :1960 Visit Date:03/24/2024 Ambulatory Visit Instructions Your Diagnosis Left foot pain BMI 20.0-20.9, adult Smoker Your Care Team Attending Physician - Sonja Staley Primary Care Physician - Brii March MD This Is Your Medications List acetaminophen (Tylenol 325 mg Tab) albuterol (Albuterol (Eqv-ProAir HFA) 90 mcg/inh inhalation aerosol) atorvastatin (atorvastatin 80 mg Tab) clopidogrel (clopidogrel 75 mg Tab) diltiazem (DilTIAZem (Eqv-Cardizem CD) 120 mg/24 hours oral capsule, extended release) fluticasone nasal (Xhance 93 mcg/inh nasal spray) losartan (losartan 25 mg Tab) meloxicam (meloxicam 15 mg Tab) metoprolol (Lopressor 25 mg oral tablet) montelukast (montelukast 10 mg Tab) Procedures Performed Angiography of artery of left lower extremity (12/29/2023), section (04/12/1993). Discharge Vitals Heart Rate (Peripheral) 64 Respiratory Rate 18 Blood Pressure 116/62 Height 167.0 cm Height 66 in Weight 56.8 kg Weight 124.96 lb BMI 20.37 What to do next Scheduled Follow-Up Appointments 2023 1:45 PM EDT With: Brady COOPEROtto Where: [facility] Medications What How Much When Why Instructions Unchanged acetaminophen (Tylenol 325 mg Tab) By Mouth Every 4 hours as needed for Pain/Fever Unchanged albuterol (Albuterol (Eqv-ProAir HFA) 90 mcg/ inh inhalation aerosol) 2 Puffs Inhalation Every 4 hours as needed for w Unchanged atorvastatin (atorvastatin 80 mg Tab) 1 Tablets By Mouth Every day TAKE ONE TABLET BY MOUTH DAILY Unchanged clopidogrel (clopidogrel 75 mg Tab) 1 Tablets By Mouth Every day TAKE ONE TABLET BY MOUTH DAILY Unchanged diltiazem (DilTIAZem (Eqv-Cardizem CD) 120 mg/ 24 hours oral capsule, extended release) See instructions TAKE ONE CAPSULE BY MOUTH ONCE DAILY Unchanged fluticasone nasal (Xhance 93 mcg/ inh nasal spray) 2 Sprays Nasal Inhalation 2 times a day INSTILL 2 SPRAYS (1 SPRAY IN EACH NOSTRIL) TWICE A DAY FOR 30 DAYS Unchanged losartan (losartan 25 mg Tab) 1 Tablets By Mouth Every day TAKE ONE TABLET BY MOUTH ONCE DAILY Unchanged meloxicam (meloxicam 15 mg Tab) 1 Tablets By Mouth Every day Left shoulder pain Left foot pain Smoker BMI 20.0-20.9, adult Unchanged metoprolol (Lopressor 25 mg oral tablet) 1 Tablets By Mouth 2 times a day TAKE ONE TABLET BY MOUTH TWICE A DAY Unchanged montelukast (montelukast 10 mg Tab) 1 Tablets By Mouth At bedtime TAKE ONE TABLET BY MOUTH ONCE DAILY Allergies No Known Medication Allergies Problems Ongoing - Any problem that you are currently receiving treatment for. Essential hypertension Fatigue Hyperlipidemia Left foot pain Left shoulder pain Screening for thyroid disorder Severe claudication Smoker Smoking trying to quit Patient Survey You may receive a survey via text or e-mail asking about your office visit. Please share your experience with us by completing your survey. We appreciate your feedback and thank you for choosing us for your care. INSURANCE CORRESPONDENCE Observed: 03/05 2:48 PM Status: F Source: [facility] [id number]#1.00TIFF PHYSICIAN ORDER Observed: 03/04/2024 2:04 PM Status: F Source: [facility] [id number]#1.00TIFF HEART AND VASCULAR OFFICE/CLINIC NOTE Observed: 03/04/2024 2:02 PM Status: F Source: [facility] Heart and Vascular Office/Cl inic Note History of Present Illness Maria Em is a female patient who presents for a new patient evaluation for hypertension, peripheral arterial disease, and hyperlipidemia. The patient was formerly managed by Dr. Krishnamurthy and wishes to seek advice from a packaging line operator. She had undergone a stenting procedure around 10 years prior. Her current cardiac status is unclear, despite reporting no symptoms of weakness. An electrocardiogram was conducted. Assessment of her lower limbs reveals them to be in excellent health, with no evidence of ulcers. EKG shows nonspecific abnormal results. Review of Systems Constitutional: no fever, no sweats, no weakness Skin: no rash, no lesions, no bruising/petechiae ENMT: no sore throat, no congestion, no hoarseness Respiratory: no shortness of breath, no cough, no orthopnea, no wheezing Cardiovascular: no chest pain, no palpitations, no edema Gastrointestinal: no nausea, no vomiting, no diarrhea, no GI bleeding Genitourinary: no anuria/oliguria no hematuria Musculoskeletal: no back pain, no trauma Neurologic: no headache, no dizziness, no numbness, no weakness Psychiatric: no sleeping problems, no irritability, no anxiety/depression. Heme/Lymph: no bleeding tendency, no bruising tendency Allergy/Immunologic: no recurrent infections, no impaired immunity Additional ROS info: Except as noted in the above Review of Systems and in the History of Present Illness all other systems have been reviewed and are negative or noncontributory Physical Exam Vitals & Measurements HR: 70(Peripheral) BP: 138/80 SpO2: 98% HT: 66 in HT: 167 cm WT: 58 kg WT: 127.6 lb BMI: 20.8 General: alert, no acute distress Skin: warm, dry intact Head: atraumatic, normocephalic Neck: trachea midline, no JVD, no bruit Eye: normal conjunctiva, sclera clear ENMT: oral mucosa moist Cardiovascular: regular rate and rhythm, no murmur, normal peripheral perfusion Respiratory: lungs CTA, respirations non labored Chest wall: no deformity. Gastrointestinal: soft, non-distended, no tenderness, no guarding. Back: no tenderness, normal ROM, normal alignment. Extremities: no edema, no deformity, no trauma Neurological: oriented x 4, LOC appropriate for age, sensation equal & normal bilaterally, speech normal Psychiatric: cooperative, affect appropriate for age, normal judgement, normal psychiatric thoughts. Assessment/Plan HTN (hypertension) (I10: Essential (primary) hypertension) An echocardiogram and a chemical stress test will be ordered to further investigate the abnormal EKG results. Follow-up The patient is scheduled for a follow-up visit with the physician accounts payable assistant in 6 weeks. Portions of this record may have been created with voice recognition artificial intelligence software, specifically [employer], [employer] and or [employer]. Substitutions may have occurred due to the inherent limitations of voice recognition and artificial intelligence software. ATTESTATION: Documentation services were performed after patient or guardian consented to allow [employer] to record this visit. JODI culinary specialist and provider reviewed before signing. JODI: Marvel Ibarra/ Pasted by: Sara Edmonds. Follow-up No qualifying data available Problem List/Past Medical History Ongoing Essential hypertension Fatigue Hyperlipidemia Left foot pain Left shoulder pain Screening for thyroid disorder Severe claudication Smoker Smoking trying to quit Historical No qualifying data Procedure/Surgical History Angiography of artery of left lower extremity (12/29/2023), section (04/12/1993). Medications Albuterol (Eqv-ProAir HFA) 90 mcg/inh inhalation aerosol, 2 puff(s), Inhalation, q4hr, PRN, 3 refills atorvastatin 80 mg Tab, 80 mg= 1 tab(s), Oral, Daily, 3 refills clopidogrel 75 mg Tab, 75 mg= 1 tab(s), Oral, Daily, 1 refills DilTIAZem (Eqv-Cardizem CD) 120 mg/24 hours oral capsule, extended release, See Instructions, 3 refills Lopressor 25 mg oral tablet, 25 mg= 1 tab(s), Oral, BID, 1 refills losartan 25 mg Tab, 25 mg= 1 tab(s), Oral, Daily, 1 refills Medrol 4 mg Tab, 1 packet(s), Oral, As Directed meloxicam 15 mg Tab, 15 mg= 1 tab(s), Oral, Daily meloxicam 7.5 mg Tab montelukast 10 mg Tab, 10 mg= 1 tab(s), Oral, Bedtime, 4 refills predniSONE Tylenol 325 mg Tab, Oral, q4hr, PRN Xhance 93 mcg/inh nasal spray, 2 spray(s), Nasal, BID, 5 refills Allergies No Known Medication Allergies Social History Alcohol - Low Risk, 12/24/2022 Current, Beer, 1-2 times per week, Household alcohol concerns: No., 12/24/2022 Substance Abuse - Denies Substance Abuse, 12/24/2022 Household substance abuse concerns: No., 12/24/2022 Tobacco - Medium Risk, 12/24/2022 5-9 cigarettes (between 1/4 to 1/2 pack)/day in last 30 days, Smoker, current status unknown Tobacco Use:. Never Smokeless Tobacco Use:. Cigarettes, Started age 24.0 Years. Household tobacco concerns: No. Yes, 03/03/2024 Family History Bipolar: Mother. Hypertension: Father. Renal failure syndrome: Mother. Immunizations Vaccine Date Status Comments influenza virus vaccine, inactivated - Not Given Patient Refuses SARS-CoV-2 (COVID-19) mRNA BNT-162b2 vax 08/29/2021 Recorded 2022-12-23: TPV60 SARS-CoV-2 (COVID-19) mRNA BNT-162b2 vax 12/01/2020 Recorded SARS-CoV-2 (COVID-19) mRNA BNT-162b2 vax 11/10/2020 Recorded influenza, whole 07/15/2007 Recorded hepatitis B adult vaccine 08/30/2005 Recorded hepatitis B adult vaccine 05/31/2005 Recorded hepatitis B adult vaccine 04/29/2005 Recorded Result Comment: Electronical ly Signed By: Marlon YE, Napoleon Mancini\.br\Date and Time Signed: 04/16/24 19:04 EDT\.br\Electronically Co-Signed By: Sara Edmonds.br\Date and Time Co-Signed: 03/04/24 14:04 EDT CONSENT FOR TREATMENT Observed: 03/04/20 1:10 PM Status: F Source: [facility] [id number]#1.00TIFF FAMILY MEDICINE OFFICE/CLINI C NOTE Observed: 03/03/2024 3:35 PM Status: F Source: [facility] HPI Staff Maria is a 63 year old female presenting for pain Pain characteristics: Onset: 1 month Pain location: left shoulder Intensity:5/10 Medication used: advil, bengay, Tylenol no injury, constant aching pain, has full ROM no increasing pain with movement. Does have hard time hold phone up to ear with left arm. History of Present Illness pt presents today for left shoulder pain. also having pain in left foot for months Review of Systems PHQ Score Initial Depression Screen Score: 0 SCORE Physical Exam Vitals & Measurements HR: 72(Peripheral) RR: 16 BP: 140/80 SpO2: 99% HT: 66 in HT: 167.0 cm WT: 57.0 kg WT: 125.4 lb BMI: 20.44 General: alert, no acute distress ENMT: oral mucosa moist, no pharyngeal erythema or exudate Cardiovascular: regular rate and rhythm, normal peripheral perfusion Respiratory: Lungs CTA, respirations non labored Extremities: no deformity, no trauma Neurological: oriented x 4, LOC appropriate for age, CN II-XII intact, motor strength equal & normal bilaterally, speech normal good ROM of left shoulder. 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 Left shoulder pain (M25.512: Pain in left shoulder) left shoulder pain shoots down arm. good range of motion of left shoulder. will order medtol dose pack and meloxicam. if no improvement will order x ray. RTC 3 weeks Ordered: meloxicam, 15 mg = 1 tab(s), Oral, Daily, # 30 tab(s), Refills(s) 0, Pharmacy: [facility], 167, cm, 03/03/24 15:07:00 EDT, Height/Length Dosing, 57, kg, 03/03/24 15:07:00 EDT, Weight Dosing methylPREDNISolone, = 1 packet(s), Oral, As Directed, as directed on package labeling, X 6 day(s), # 21 tab(s), Refills(s) 0, Pharmacy: [facility], 167, cm, 03/03/24 15:07:00 EDT, Height/Length Dosing, 57, kg, 03/03/24 15:07:00 EDT, Weight Dosing 2. Left foot pain (M79.672: Pain in left foot) left foot has been hurting for a few months,. laterally near little toe. will order meloxicam and medrol dose pack if no improvement will refer to Dr. Jackson Ordered: meloxicam, 15 mg = 1 tab(s), Oral, Daily, # 30 tab(s), Refills(s) 0, Pharmacy: [facility], 167, cm, 03/03/24 15:07:00 EDT, Height/Length Dosing, 57, kg, 03/03/24 15:07:00 EDT, Weight Dosing methylPREDNISolone, = 1 packet(s), Oral, As Directed, as directed on package labeling, X 6 day(s), # 21 tab(s), Refills(s) 0, Pharmacy: [facility], 167, cm, 03/03/24 15:07:00 EDT, Height/Length Dosing, 57, kg, 03/03/24 15:07:00 EDT, Weight Dosing 3. Smoker (F17.200: Nicotine dependence, unspecified, uncomplicated) consider not smoking Ordered: meloxicam, 15 mg = 1 tab(s), Oral, Daily, # 30 tab(s), Refills(s) 0, Pharmacy: [facility], 167, cm, 03/03/24 15:07:00 EDT, Height/Length Dosing, 57, kg, 03/03/24 15:07:00 EDT, Weight Dosing methylPREDNISolone, = 1 packet(s), Oral, As Directed, as directed on package labeling, X 6 day(s), # 21 tab(s), Refills(s) 0, Pharmacy: [facility], 167, cm, 03/03/24 15:07:00 EDT, Height/Length Dosing, 57, kg, 03/03/24 15:07:00 EDT, Weight Dosing 4. BMI 20.0-20.9, adult (Z68.20: Body mass index [BMI] 20.0-20.9, adult) BMI education complete Ordered: meloxicam, 15 mg = 1 tab(s), Oral, Daily, # 30 tab(s), Refills(s) 0, Pharmacy: [facility], 167, cm, 03/03/24 15:07:00 EDT, Height/Length Dosing, 57, kg, 03/03/24 15:07:00 EDT, Weight Dosing methylPREDNISolone, = 1 packet(s), Oral, As Directed, as directed on package labeling, X 6 day(s), # 21 tab(s), Refills(s) 0, Pharmacy: [facility], 167, cm, 03/03/24 15:07:00 EDT, Height/Length Dosing, 57, kg, 03/03/24 15:07:00 EDT, Weight Dosing Follow-up No qualifying data available Problem List/Past Medical History Ongoing Essential hypertension Fatigue Hyperlipidemia Left foot pain Left shoulder pain Screening for thyroid disorder Severe claudication Smoker Smoking trying to quit Historical No qualifying data Procedure/Surgical History Angiography of artery of left lower extremity (12/29/2023), section (04/12/1993). Medications Albuterol (Eqv-ProAir HFA) 90 mcg/inh inhalation aerosol, 2 puff(s), Inhalation, q4hr, PRN, 3 refills atorvastatin 80 mg Tab, 80 mg= 1 tab(s), Oral, Daily, 3 refills clopidogrel 75 mg Tab, 75 mg= 1 tab(s), Oral, Daily, 1 refills DilTIAZem (Eqv-Cardizem CD) 120 mg/24 hours oral capsule, extended release, See Instructions, 3 refills Lopressor 25 mg oral tablet, 25 mg= 1 tab(s), Oral, BID, 1 refills losartan 25 mg Tab, 25 mg= 1 tab(s), Oral, Daily, 1 refills Medrol 4 mg Tab, 1 packet(s), Oral, As Directed meloxicam 15 mg Tab, 15 mg= 1 tab(s), Oral, Daily montelukast 10 mg Tab, 10 mg= 1 tab(s), Oral, Bedtime, 4 refills Tylenol 325 mg Tab, Oral, q4hr, PRN Xhance 93 mcg/inh nasal spray, 2 spray(s), Nasal, BID, 5 refills Allergies No Known Medication Allergies Social History Alcohol - Low Risk, 12/24/2022 Current, Beer, 1-2 times per week, Household alcohol concerns: No., 12/24/2022 Substance Abuse - Denies Substance Abuse, 12/24/2022 Household substance abuse concerns: No., 12/24/2022 Tobacco - Medium Risk, 12/24/2022 5-9 cigarettes (between 1/4 to 1/2 pack)/day in last 30 days, Smoker, current status unknown Tobacco Use:. Never Smokeless Tobacco Use:. Cigarettes, Started age 24.0 Years. Household tobacco concerns: No. Yes, 03/03/2024 Family History Bipolar: Mother. Hypertension: Father. Renal failure syndrome: Mother. Immunizations Vaccine Date Status Comments influenza virus vaccine, inactivated - Not Given Patient Refuses SARS-CoV-2 (COVID-19) mRNA BNT-162b2 vax 08/29/2021 Recorded 2022-12-23: TPV60 SARS-CoV-2 (COVID-19) mRNA BNT-162b2 vax 12/01/2020 Recorded SARS-CoV-2 (COVID-19) mRNA BNT-162b2 vax 11/10/2020 Recorded influenza, whole 07/15/2007 Recorded hepatitis B adult vaccine 08/30/2005 Recorded hepatitis B adult vaccine 05/31/2005 Recorded hepatitis B adult vaccine 04/29/2005 Recorded Result Comment: Electronical ly Signed By: Sonja Staley\.br\Date and Time Signed: 03/03/24 15:35 EDT AMBULATORY VISIT SUMMARY Observed: 03/03 3:24 PM Status: F Source: [facility] MARIA EM :1960 Visit Date:03/03/2024 Ambulatory Visit Instructions Your Diagnosis BMI 20.0-20.9, adult Smoker Your Care Team Attending Physician - Sonja Staley Primary Care Physician - Brii March MD This Is Your Medications List acetaminophen (Tylenol 325 mg Tab) albuterol (Albuterol (Eqv-ProAir HFA) 90 mcg/inh inhalation aerosol) atorvastatin (atorvastatin 80 mg Tab) clopidogrel (clopidogrel 75 mg Tab) diltiazem (DilTIAZem (Eqv-Cardizem CD) 120 mg/24 hours oral capsule, extended release) fluticasone nasal (Xhance 93 mcg/inh nasal spray) losartan (losartan 25 mg Tab) metoprolol (Lopressor 25 mg oral tablet) montelukast (montelukast 10 mg Tab) Procedures Performed Angiography of artery of left lower extremity (12/29/2023), section (04/12/1993). Discharge Vitals Heart Rate (Peripheral) 72 Respiratory Rate 16 Blood Pressure 140/80 Height 167.0 cm Height 66 in Weight 57.0 kg Weight 125.4 lb BMI 20.44 What to do next Scheduled Follow-Up Appointments 2023 1:15 PM EDT With: Marlon YE, Napoleon Mancini Where: [facility] Friday 11:20 AM EDT With: Sonja Staley Where: [facility] [place] CARDIOVASCULAR REPORT Observed: 03/03/20 12:06 PM Status: F Source: [facility] [id number]#1.00TIFF ALLERGIES DATE TYPE / CODE NAME / CODE REACTION SEVERITY SOURCE /[id number](SNOME D CT) No Known Medication Allergies [facility] ENCOUNTERS ADMIT/DISCHARGE ACCOUNT NUMBER ADMITTING ENCOUNTER CLASS LOCATION SOURCE 02/15/2025/02/16/20 [id number] MD Raza Morel Ambulatory FTBuildin g:CVRoom: [id number]: 01 [facility] 02/07/2025/02/08/20 [id number] MD Raza Morel [facility] ClinicRoom: CD:[id number] 81 [facility] 11/19/2024/11/19/19 25 [id number] [facility] 09/27/2024/09/27/20 24 [id number] [facility] m: CD:[id number] 75 [facility] 08/06/2024/08/06/20 24 [id number] [facility] m: CD:[id number] 81 [facility] 06/01/2024/06/01/20 24 [id number] Ambulatory Building:NO MS NB [facility] 05/26/2024/05/26/20 24 [id number] Biedenbach, Jani S Ambulatory FTMCBuildin g:ASRoom: [id number]: 01 [facility] 05/18/2024/05/18/20 24 [id number] Ambulatory Building:NO MS NB ENT [facility] 05/07/2024/05/07/20 24 [id number] KENNETH Abreu Ambulatory FTMCBuildin g:FT.Cardio logy ClinicRoom: CD:[id number] 73 [facility] 04/23/2024/04/23/20 24 [id number] Napoleon Larios Ambulatory FTMCBuildin g:CVRoom: [id number]: 01 [facility] 04/22/2024 [id number] Napoleon Larios Ambulatory FTMCBuildin g:FT LAB [facility] 04/22/2024/04/22/20 24 [id number] Napoleon Larios Ambulatory [facility] g:FT LAB [facility] 04/16/2024/04/16/20 24 [id number] Napoleon Larios Ambulatory [facility]MCBuildin g:FT CAR [facility] 04/06/2024/04/06/20 24 [id number] Ambulatory Building:NO MS VALERIEDERM [facility] 03/24/2024/03/24/20 24 [id number] [place] [facility] [place] 03/04/2024/03/04/20 24 [id number] Napoleon Larios Ambulatory FTMCBuildin g:FT.Cardio logy ClinicRoom: CD:[id number] 79 [facility] 03/03/2024/03/03/20 24 [id number] Ambulatory [facility] [place] FM [facility] 12/23/2022 [id number] Ambulatory FT [facility] [place]FT [facility] PAYERS ENCOUNTER GUARANTOR PAYER SUBSCRIBER SOURCE 02/15/2025 MARIA ROSADO: [id number] [facility]: ~~(41 (HP) Primary Insurance:AnthemPo licy Number: [id number] keila Date:5687-68-02NA [address] [place] [phone]: MARIA CONDE [facility] 02/15/2025 Secondary Insurance:MEDICARE Policy Number: [id number] Date:4385-68-33[address] [address]FF: MARIA CONDE [facility] 02/07/2025 MARIA WANGB: [place] STTel: ~~(41 (HP) Primary Insurance:AnthemPo licy Number: [id number] keila Date:6181-38-70TH [address] [place] [phone]: MARIA CONDE [facility] 11/19/2024 MARIA EMB: [place] STTel: ~~(41 (HP) Primary Insurance:AnthemPo licy Number: [id number] keila Date:1863-91-66IL [address] [place] [phone]: MARIA CONDE [facility] 09/27/2024 MARIA WANGB: [place] STTel: ~~(41 (HP) Primary Insurance:AnthemPo licy Number: [id number] keila Date:9518-96-71ZP [address] [place] [phone]: MARIA CONDE [facility] 08/06/2024 MARIA WANGB: [place] STTel: ~~(41 (HP) Primary Insurance:AnthemPo licy Number: [id number] keila Date:4114-12-91CQ [id number] [place] [phone]: MARIA CONDE [facility] 06/01/2024 MARIA EMDOB: [address]: (HP) Primary Insurance:BCBSPoli cy Number: [id number] keila Date:2020-03-29 MARIA EMDOB: [id number] [place] [address] [facility] Medical [facility] 05/26/2024 MARIA EMB: [place] STTel: ~~(41 (HP) Primary Insurance:AnthemPo licy Number: [id number] keila Date:7693-96-37UP [address] [place] [address]ED: MARIAROYCE CONDE [facility] 05/26/2024 Secondary Insurance:MEDICARE Policy Number: [id number] Date:3656-09-45WJ [address], [place] [address]XW: MARIAROYCE CONDE [facility] 05/18/2024 MARIA EMB: [place] [address]Tel: (HP) Primary Insurance:BCBSPoli cy Number: [id number] keila Date:2020-03-29 MARIA EMB: [id number] [place] [address] [facility] 05/07/2024 MARIA EMB: [facility] STTel: ~~(41 (HP) Primary Insurance:AnthemPo licy Number: [id number] keila Date:3495-26-09MT [id number] [place] [address]BZ: MARIA CONDE [facility] 04/23/2024 MARIA WANGB: [place] STTel: ~~(41 (HP) Primary Insurance:AnthemPo licy Number: [id number] keila Date:2078-01-35MF [id number] [place] [phone]: MARIA CONDE [facility] 04/23/2024 Secondary Insurance:MEDICARE Policy Number: [id number] ve Date:2851-80-67BO [address] [place] [address]RS: MARIA CONDE [facility] 04/22/2024 MARIA WANGB: [facility] STTel: ~~(41 (HP) Primary Insurance:AnthemPo licy Number: [id number] keila Date:0194-74-44YA [address] [place] [address]SJ: MARIA CONDE [facility] 04/22/2024 Secondary Insurance:MEDICARE Policy Number: [id number] Date:5949-47-66QM [address] [place] [phone]: MARIA CONDE [facility] 04/16/2024 MARIA WANGB: [place] STTel: ~~(41 (HP) Primary Insurance:AnthemPo licy Number: [id number] keila Date:3311-99-54VY [id number] [place] [phone]: MARIA CONDE [facility] 04/16/2024 Secondary Insurance:MEDICARE Policy Number: [id number] ve Date:7159-72-78HR [address], [place] [address]CR: MARIA CONDE [facility] 04/06/2024 MARIA WANGB: [place] [address]Fpw: (HP) Primary Insurance:BCBSPoli cy Number: [id number] keila Date:2020-03-29 MARIA WANGB: [id number] [place] [address] [facility] 03/24/2024 MARIA EMB: [facility] STTel: ~~(41 (HP) Primary Insurance:AnthemPo licy Number: [id number] keila Date:8597-83-85QY [address] [place] [id number]: MARIA CONDE [facility] 03/04/2024 MARIA EMB: [facility] STTel: ~~(41 (HP) Primary Insurance:AnthemPo licy Number: [id number] keila Date:1714-05-08KL [address] [place] [id number]: MARIA CONDE [facility] 03/04/2024 Secondary Insurance:MEDICARE Policy Number: [id number] ve Date:2960-91-97UG [address] [place] [id number]: MARIA CONDE [facility] 03/03/2024 MARIA EMB: [facility] STTel: ~~(41 (HP) Primary Insurance:AnthemPo licy Number: [id number] keila Date:7315-48-64TN [address], [place] [address]GR: MARIA CONDE [facility]
[2025-02-18 22:20] VITALS: BP 148/85; PULSE 74; TEMP 36.7; O2SAT 100; BMI 20.4
--- NOTE | 2025-02-18 23:08 | ECG_ITS ---
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 Measurements Intervals Kimball Rate: 76 P: 106 NE: 176 QRS: -40 QRSD: 162 T: 69 QT: 450 QTc: 480 Interpretive Statements 1100 Sinus rhythm 2550 Left bundle branch block 7200 Abnormal left axis deviation 9150 abnormal ECG No previous ECG available for comparison Electronically Signed On 02-19-2025 9:08:33 EDT by JACEK DUARTE M.D.
[2025-02-18 23:18] LABS: Basophils Percent Auto 0.3 % (0.2-2.0); Eosinophils Absolute Auto 0.3 10^3/uL (0.0-0.7); Eosinophils Percent Auto 2.7 % (0.9-7.0); Hematocrit 32.3 % (36.0-48.0); Immature Granulocytes Abs Auto 0.02 10^3/uL (0.00-0.03); Immature Granulocytes Pct Auto 0.2 % (0.0-0.5); Lymphocytes Absolute Auto 1.2 10^3/uL (1.2-3.8); Lymphocytes Percent Auto 12.4 % (20.5-60.0); Mean Corpuscular Hemoglobin 25.5 pg (26.7-34.0); Mean Corpuscular Volume 82.4 fL (81.0-99.0); Mean Platelet Volume 9.5 fL (9.5-13.5); Monocytes Absolute Auto 0.8 10^3/uL (0.3-0.8); Neutrophils Absolute Auto 7.6 10^3/uL (1.4-6.5); Neutrophils Percent Auto 76.4 % (43.0-75.0); Platelet Count 283 10^3/uL (150-450); Red Blood Count 3.92 10^6/uL (4.20-5.40); Red Cell Distribution Width 17.4 % (11.0-15.0); White Blood Count 9.9 10^3/uL (4.0-11.0)
[2025-02-18 23:43] LABS: Anion Gap 13.6; BUN Creatinine Ratio 18.4; Calcium 8.9 mg/dL (8.5-10.1); Carbon Dioxide 21.9 mmol/L (21.0-32.0); Chloride 96 mmol/L (98-107); Estimated GFR (African America >60 (>=60 mL/min/1.73m^2); Estimated GFR (Non-African Ame >60 (>=60 mL/min/1.73m^2); Ethanol 201 mg/dL; Glucose 96 mg/dL (74-106); Potassium 3.5 mmol/L (3.5-5.1); Sodium 128 mmol/L (136-145)
[2025-02-18 23:49] LABS: Troponin I High Sensitivity 641.5 pg/mL (4.0-51.3)
--- NOTE | 2025-02-18 23:53 | PC.NURSE ---
Lab called with a critical results, Onaw=190.5, and ETOH= 201. DR Adams informed of these results
[2025-02-19 00:08] VITALS: BP 174/87; PULSE 78; TEMP 37.1; O2SAT 100
[2025-02-19] MEDS: 0.9 % SODIUM CHLORIDE 1,000 ML 250 ML IV (00:13)
--- NOTE | 2025-02-19 00:18 | ED.FALL1 ---
HPI HPI - Fall General Chief Complaint: Fall Stated Complaint: Head Injury Bleed Time Seen by Provider: 02/18/25 21:55 Source: patient Mode of arrival: walk-in Limitations: no limitations History of Present Illness HPI Narrative: cc - fall, facial injury, right hand injury The patient states that she was taking her dogs for a walk when she got tripped up, while outside, falling and striking the left side of her head and face against a planter in her yard. Initially there was report that she had syncope or felt lightheadedness or dizziness prior to the fall but she vehemently denied that and repeatedly denied that. She has a deep and large laceration to the left side of the face involving the left cheek but missing the left eye, left upper and lower eyelid, nose and mouth as well as the left ear. She complains of pain to the right hand. She denies any other injuries. She admits to drinking at least 6 alcoholic drinks -beers -and also taking a cannabis gummy of unknown dose. She repeatedly denies any chest pain, shortness of breath, palpitations or other symptoms preceding or after the fall. she denies syncopal episode. Related Data Home Medications ?Medication ?Instructions ?Recorded ?Confirmed albuterol sulfate 90 mcg/actuation 2 puff inhalation Q4H PRN 02/19/25 02/19/25 aerosol inhaler shortness of breath or wheezing aspirin 81 mg tablet,delayed 81 mg PO DAILY 02/19/25 02/19/25 release atorvastatin 80 mg tablet 80 mg PO DAILY 02/19/25 02/19/25 clopidogrel 75 mg tablet 75 mg PO DAILY 02/19/25 02/19/25 diltiazem HCl 120 mg 120 mg PO Q24H 02/19/25 02/19/25 capsule,extended release 24 hr losartan 25 mg tablet 25 mg PO DAILY 02/19/25 02/19/25 metoprolol tartrate 25 mg tablet 25 mg PO Q12H 02/19/25 02/19/25 montelukast 10 mg tablet 10 mg PO DAILY 02/19/25 02/19/25 nicotine (polacrilex) 2 mg gum 2 mg PO Q2H PRN nicotine cravings 02/19/25 02/19/25 Allergies Allergy/AdvReac Type Severity Reaction Status Date / Time No Known Drug Allergies Allergy Verified 02/18/25 22:19 Opioid HPI Opioid Management Most Recent Pain and Opioid Data: Last Pain Scale 6 Today, 00:22 Last MAR Pain Assessment Today, 00:22 PFSH PFSH Social History Little interest or pleasure in doing things: not at all Feeling down, depressed, or hopeless: not at all Exam Narrative Exam Narrative: Nurses note and vital signs reviewed and patient is not hypoxic. afebrile General: The patient appears well and in no apparent distress. Patient is resting comfortably on cart. GCS = 15. Skin: Warm, dry, no pallor noted. Head: 16 cm deep and gaping laceration to the left side of the face that is lateral to the left eye does not involve the nose, mouth, upper or lower eyelid or ear. The wound is deep and I can see the tissue covering the bony structures beneath. The muscle appears to be involved and it is very dirty with a lot of foreign material inside of the laceration. The movements of the left side of the cheek and lateral lower left forehead are affected. The remainder of the face and scalp are normocephalic, atraumatic Neck: Supple, trachea mid-line, no anterior, lateral or posterior tenderness. Eyes: PERRLA, EOMI ENT: TM's clear, no hemotympanum detected, no blood in posterior oropharynx, no oral or intraoral injury. No nasal injury. Cardiovascular: Regular Rate and Rhythm Respiratory: Patient is in no distress, no accessory muscle use, lungs are clear to auscultation, no wheezing, rales or rhonchi Chest Wall: no tenderness, no flail chest, contusion, abrasion, or signs of trauma. Back: No thoracic vertebral or lumbar vertebral tenderness to palpation. Negative straight leg raise bilaterally. No ecchymosis, abrasions, lacerations noted. Musculoskeletal: Tenderness noted at the base of the right thumb and the proximal portion of the second metacarpal of the right hand. No additional sign of long bone fracture, no additional extremity tenderness, no additional extremity swelling. Pelvis is nontender to palpation. There is no clavicular tenderness, shoulder tenderness or scapular tenderness. pulses at femoral, DP, PT, and popiteal were 2+ bilaterally. Moves all four extremities in all modalities with 5/5 strength, including normal mud temperer with the right hand. GI: Normal bowel sounds, no tenderness to palpation, no masses appreciated. No rebound, guarding, or rigidity noted. Neurological: A&O x4, normal equal mud temperer strength, normal finger to nose, normal speech, normal coordination, normal motor, normal sensory. She is able to answer all questions and her speech is not slurred. Psychiatric: Cooperative Constitutional Vital Signs, click to edit/add: Last Vital Signs Temp 98.8 F 02/19/25 00:08 Pulse 78 02/19/25 00:08 Resp 20 02/19/25 00:08 BP 174/87 H 02/19/25 00:08 Pulse Ox 100 02/19/25 00:08 O2 Del Method Room Air 02/18/25 22:20 Course Vital Signs Vital signs: Vital Signs Temperature 98.0 F 02/18/25 22:20 Pulse Rate 74 02/18/25 22:20 Respiratory Rate 19 02/18/25 22:20 Blood Pressure 148/85 H 02/18/25 22:20 Pulse Oximetry 100 02/18/25 22:20 Oxygen Delivery Method Room Air 02/18/25 22:20 Temperature 98.8 F 02/19/25 00:08 Pulse Rate 78 02/19/25 00:08 Respiratory Rate 20 02/19/25 00:08 Blood Pressure 174/87 H 02/19/25 00:08 Pulse Oximetry 100 02/19/25 00:08 Oxygen Delivery Method Room Air 02/18/25 22:20 MDM - Fall MDM Narrative Medical decision making narrative: Patient was placed on cafeteria monitor and EKG obtained. Blood drawn and sent for evaluation. Tetanus was updated and the patient was given Dilaudid for pain with Zofran being given to prevent nausea. Patient was sent for CT scanning of the head, facial bones and cervical spine. XRays of the right hand were obtained. The patient's EKG shows left bundle branch block and left axis deviation. I do not have an old one for comparison. Troponin was also found to be elevated at 641.5. Eventually I learned the patient had undergone cardiac catheterization 3 days ago at [facility] in [place]. She apparently had a stent multiple years ago but it was an incomplete treatment of blockage in her coronary artery and it was recommended that she get additional stenting. Her chemical project engineer apparently moved and there was a delay in getting this done so she was asymptomatic when this was performed earlier this week. This likely accounts for the EKG changes as well as the elevated troponin as the patient is asymptomatic. Ethanol elevated at 201. Due to the size, depth and nature of the laceration, its complexity, as well as the dirtiness and contamination involved in this laceration, coupled with the patient's intoxication from alcohol and cannabis use, I recommended the patient be transferred to a tertiary facility that has trauma capability at this hospital as a nontrauma center and has no surgical backup. I spoke with the on-call trauma surgeon at [facility]. Dr Cormier agreed to accept this patient as an ER to ER transfer to the trauma service. We were unable to secure local ambulance company to assist with transfer this patient therefore [facility] dispensed their transport service to transfer this patient. I will the patient recently undergone a cardiac catheterization and that was likely the cause of the patient's EKG change in elevated troponin, I asked that they transport this patient with cardiac monitoring and appropriate cardiac care. Patient and family were informed of the reason that we need to transfer this patient were agreeable. Medical Records Attestation: I reviewed the patient's medical records. Lab Data Attestation: I reviewed the patient's lab results. Labs: Lab Results 02/18/25 Range/Units 22:55 WBC 9.9 (4.0-11.0) 10^3/uL RBC 3.92 L (4.20-5.40) 10^6/uL Hgb 10.0 L (12.0-16.0) g/dL Hct 32.3 L (36.0-48.0) % MCV 82.4 (81.0-99.0) fL MCH 25.5 L (26.7-34.0) pg MCHC 31.0 (29.9-35.2) g/dL RDW 17.4 H (11.0-15.0) % Plt Count 283 (150-450) 10^3/uL MPV 9.5 (9.5-13.5) fL Neut % (Auto) 76.4 H (43.0-75.0) % Lymph % (Auto) 12.4 L (20.5-60.0) % Grant % (Auto) 8.0 (1.7-12.0) % Eos % (Auto) 2.7 (0.9-7.0) % Baso % (Auto) 0.3 (0.2-2.0) % Neut # (Auto) 7.6 H (1.4-6.5) 10^3/uL Lymph # (Auto) 1.2 (1.2-3.8) 10^3/uL Grant # (Auto) 0.8 (0.3-0.8) 10^3/uL Eos # (Auto) 0.3 (0.0-0.7) 10^3/uL Baso # (Auto) 0.0 (0.0-0.1) 10^3/uL Abs Immat Gran (auto) 0.02 (0.00-0.03) 10^3/uL Imm/Tot Granulo (auto) 0.2 (0.0-0.5) % Sodium 128 L (136-145) mmol/L Potassium 3.5 (3.5-5.1) mmol/L Chloride 96 L (98-107) mmol/L Carbon Dioxide 21.9 (21.0-32.0) mmol/L Anion Gap 13.6 BUN 7.0 (7.0-18.0) mg/dL Creatinine 0.38 L (0.55-1.02) mg/dL Est GFR ( Amer) >60 (>=60 mL/min/1.73m^2) Est GFR (Non-Af Amer) >60 (>=60 mL/min/1.73m^2) BUN/Creatinine Ratio 18.4 Glucose 96 (74-106) mg/dL Calcium 8.9 (8.5-10.1) mg/dL Troponin I High Sens 641.5 H* (4.0-51.3) pg/mL Ethanol Quant 201 mg/dL ECG Data Attestation: I personally reviewed and interpreted this ECG as follows: Interpretation: EKG interpretation: Emergency Department physician interpretation. Normal sinus rhythm at 76bpm. Abnormal left axis deviation with left bundle branch block -interpretation of the remainder of the EKG is limited and I cannot rule out acute ST elevation or deep ischemic changes. Discharge Plan Discharge Chief Complaint: Fall Clinical Impression: Complex laceration of face, Head injury, Alcohol intoxication [facility]position[facility] Time of Disposition Decision: 01:08 Discharge Location: [facility]
[2025-02-19] MEDS: ONDANSETRON PF 4 MG/2 ML VIAL IV (00:21)
[2025-02-19] MEDS: HYDROMORPHONE HCL 1 MG/ML CARTRIDGE IVP (00:22)
[2025-02-19] MEDS: CEFAZOLIN SODIUM/DEXTROSE,ISO 2 GM/50 ML PIGGYBACK IV (00:22)
[2025-02-19] MEDS: ADACEL DIPH,PERTUSS(ACELL),TET VAC/PF 0.5 ML ADULT SYRINGE IM (00:33)
[2025-02-19 01:12] VITALS: BP 154/78; PULSE 78; TEMP 37.1; O2SAT 98
--- NOTE | 2025-02-19 01:35 | PC.NURSE ---
this patient report given to ems crew, this patient awake and alert sitting up right on the bed patient report [facility] dept charge nurse Breanne [phone]. this patient voices no concerns and shows no signs of distress
== END 2025-02-19 01:33 | disposition short-term general hospital (02) ==
PROVIDERS: Emergency Provider Emergency Medicine; PCP Family Medicine
DX: S01.412A Laceration without foreign body of left cheek and temporomandibular area, initial encounter (principal); S02.40FA Zygomatic fracture, left side, initial encounter for closed fracture; Z23 Encounter for immunization; W01.198A Fall on same level from slipping, tripping and stumbling with subsequent striking against other object, initial encounter; F10.129 Alcohol abuse with intoxication, unspecified; Z98.890 Other specified postprocedural states; S09.90XA Unspecified injury of head, initial encounter; Y90.7 Blood alcohol level of 200-239 mg/100 ml
CPT/HCPCS: 36415; 70450; 70486; 72125; 73130; 80048; 80320; 84484; 85025; 90471; 90715; 93005; 96365; 96375; 99285; J0690; J1171; J2405

== ENCOUNTER 2025-07-31 21:29 | Emergency (ER) | payer BC, SELFPAY ==
--- OUTSIDE RECORDS SUMMARY | 2024-04-28 06:15 | XMS_ITS ---
Author Organization The [facility] in [place] Address [address] [place] [address] Care Team Providers Care Vault Custodian Name Role Phone Sonja Grullon Primary Care Provider Unavail Fernando Salas Unavailable [phone] REASON FOR VISIT 3 week f/u Encounters Encounter Location Date Provider Diagnosis The [facility] (PODIATRY) [address] [place] [address] [place] [address] 04/28/2024 Fernando Jackson Plan Of Treatment No Information Progress Notes * Aydin AOCSTAPiotrOB: 8 (65 yo F)Acc No.[id number]:04/28/2024 UNLOCKED PROGRESS NOTE Follow Up Patient: Maria SEARS :?Fernando Jackson DPM, MSDOB:1960???Age: 63 Y???Sex:FemaleDate:04/28/2024hone:[phone]:[address] [place], [place] [id number]:KANDIS Conner Subjective: * Chief Complaints: * 1 . 3 week f/u. * Medical History: Objective: * Vitals: Assessment: Plan: * Treatment: * * Electronic signature of Fernando Jackson DPM on 07/31/2025 at 09:34 PM ESTSign off status: PendingVisit Status:?CANC (Cancelled) * Provider: Fausto Jackson DPM, MS Date: 0 04/28/2024 Generated for Printing/Faxing/eTransmitting on:?07/31/2025 09:34 PM EST
--- OUTSIDE RECORDS SUMMARY | 2025-07-31 21:34 | XMS_ITS | Clinical Summary ---
Author Organization [employer] Address [id number] [address] [place] [address] Care Team Providers Care [employer] Docent Name Role Phone Unavailable Primary Care Provider Unavailabl e Allergies No known active allergies Medications MedicationSigDispense QuantityRefillsLast FilledStart DateEnd DateStatus clopidogreL (PLAVIX) 75 mg tablet Take 1 tablet (75 mg total) by mouth in the morning.Active aspirin 81 mg chewable tablet Chew 1 tablet (81 mg total) and swallow in the morning.Active montelukast (SINGULAIR) 4 mg chewable tablet Chew 1 tablet (4 mg total) and swallow nightly.Active dilTIAZem LA (CARDIZEM LA) 120 mg 24 hr tablet Take 1 tablet (120 mg total) by mouth in the morning.Active losartan (COZAAR) 25 mg tablet Take 1 tablet (25 mg total) by mouth in the morning.Active atorvastatin (LIPITOR) 80 mg tablet Take 1 tablet (80 mg total) by mouth in the morning.Active metoprolol tartrate (LOPRESSOR) 25 mg tablet Take 1 tablet (25 mg total) by mouth in the morning and 1 tablet (25 mg total) before bedtime.Active acetaminophen (TYLENOL EXTRA STRENGTH) 500 mg tablet Take 2 tablets (1,000 mg total) by mouth every 6 (six) hours as needed for pain. 30 tablet 5Active bacitracin 500 unit/gram packet Apply 1 Application topically in the morning and 1 Application before bedtime. Apply over laceration. 14 g 5Active naloxone (NARCAN) 4 mg/actuation spray,non-aerosol nasal spray Administer 1 spray (4 mg total) into alternating nostrils as needed for opioid reversal. 1 each 5Active Active Problems ProblemNoted DateDiagnosed DateTraumatic head injury with multiple lacerations, initial tmynfsifm08/ Immunizations No known immunizations Social History Tobacco UseTypesPacks/DayYears UsedDateSmoking Tobacco: Some DaysCigarettes Smokeless Tobacco: NeverAlcohol UseStandard Drinks/WeekCommentsYes0 (1 standard drink = 0.6 oz pure alcohol)4 beers dailyAHC UtilitiesAnswerDate RecordedIn the past 12 months has the electric, gas, oil, or water company threatened to shut off services in your home?No02/19/2025UDIT-CAnswerDate RecordedQ1: How often do you have a drink containing alcohol?4 or more times a week02/19/2025Q2: How many drinks containing alcohol do you have on a typical day when you are drinking?3 or Q3: How often do you have six or more drinks on one occasion? Anfuks9302/19/2025Overall Financial Resource Strain (CARDIA)AnswerDate RecordedHow hard is it for you to pay for the very basics like food, housing, medical care, and heating?Not hard at all02/19/2025PHQ-2AnswerDate RecordedTotal Score0 02/19/2025PRAPARE - TransportationAnswerDate RecordedIn the past 12 months, has lack of transportation kept you from medical appointments or from getting medications?No02/19/2025In the past 12 months, has lack of transportation kept you from meetings, work, or from getting things needed for daily living?No 02/19/2025Housing InstabilityAnswerDate RecordedAre you worried or concerned that in the next two months you may not have stable housing that you own, rent or stay in as a part of a household?No02/19/2025Hunger ScreeningAnswerDate RecordedWithin the past 12 months we worried whether our food would run out before we got money to buy more.Never True02/19/2025Within the past 12 months the food we bought just didn't last and we didn't have money to get more.Never True02/19/2025CommentsNoSex and Gender InformationValueDate RecordedSex Assigned at BirthNot on fileLegal AxnZnlxva59/23/2025 11:51 PM EDTGender IdentityNot on fileSexual OrientationNot on file Last Filed Vital Signs Vital SignReadingTime TakenCommentsBlood Ctxevcpg721/66002/19/2025 12:14 PM EDT Ovbtp779602/19/2025 12:14 PM NEFXvvvqiwchob48.4 ??C (97.6 ??F)02/19/2025 12:14 PM EDTRespiratory Ogpb308202/19/2025 12:14 PM EDTOxygen Kajjqkakda14%02/19/2025 12:14 PM EDTInhaled Oxygen Concentration--Weight--Iplcsh581.6 cm (5' 6 )02/19/2025 9:24 AM EDTBody Mass Index-- Plan of Treatment Health MaintenanceDue DateLast DoneCommentsTobacco Dbwqzypvug1958dult BMI Baumtnkoa60/29/1976Zoster (Shingles) Vaccine (1 of 2)2008Fall Risk Tzddkucdv75/29/2023OVID-19 Vaccine ( - season)/09/2020, 12/01/2020, 11/10/2020Influenza Ouqnwvt43/Depression Screening Tobacco Gritisiut12DTaP,Tdap and Td Vaccines (2 - Td or Tdap) Medical Devices Not on file Insurance Advance Directives * Full Code (Latest Code Status on File) Date ActivatedDate InactivatedComments02/19/2025 3:20 AM02/19/2025 5:52 PM
--- OUTSIDE RECORDS SUMMARY | 2025-07-31 21:34 | XMS_ITS | CCD ---
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 Name Role Phone Otto Guillory Unavailable DOUGLAS KRISHNAMURTHY Primary Care Physician [phone] WENDY, DR REYNAGA Admitting Unavailable KRISHNAMURTHY ., DR DOUGLAS Islas Primary Care Unavailable WENDY, DR REYNAGA Attending Unavailable BIELOY, DR REYNAGA Consulting Unavailable NEFCYMARIANO Consulting Unavailable RAINASARAY Admitting Unavailable ZIEBER, DR ROSEMARY Colon Consulting Unavailable RAINASARAY SNEED Attending Unavailable KRISHNAMURTHY ., DR DOUGLAS Islas Primary Care Unavailable RAINASARAY SNEED Consulting Unavailable KRISHNAMURTHY ., DR DOUGLAS Islas Primary Care Unavailable KRISHNAMURTHY ., DR DOUGLAS Islas Admitting Unavailable KRISHNAMURTHY ., DR DOUGLAS Islas Attending Unavailable KRISHNAMURTHY ., DR DOUGLAS Islas Consulting Unavailable ZIEBER, DR ROSEMARY Colon Consulting Unavailable ABRAHAN, DR TETE Lu Attending Unavailjessy GAUTHIER, DR TETE Lu Consulting Unavailjessy islas REINIJEOMA, DR TETE Lu Admitting Unavailabl e KRISHNAMURTHY ., DR DOUGLAS Islas Primary Care Unavailable Brii March. Primary Care Physician [phone] RAIMUNDO LEON Attending Unavailable BRII MARCH Referring Unavailable JANI NGUYEN Attending Unavailable RAIMUNDO LEON Referring Unavailable JANI NGUYEN Attending Unavailable MD Gaetano Abraham Attending Unavailable NONE, XXXX Referring Unavailable Jani Nguyen Admitting Unavailable Jani Nguyen Attending Unavailable Jani Nguyen Referring Unavailable Napoleon Mason Admitting UnavailNapoleon Arevalo Attending UnavailRaimundo Engel MD Unavailable Jani Nguyen DO Unavailable [phone] Nathan Navarro MD Primary Care Provider Brii March MD Primary Care Provider Saray Paris Primary Care Physician Napoleon Mason Attending Napoleon Dahl Admitting Unavaila Saray Denny Attending Unavailable Saray Paris Attending Unavailable Saray Paris Referring Unavailable Napoleon Mason Attending Unavaila Napoleon Stauffer Admitting Unavaila Otto García Admitting Unavailable Otto Abreu Attending Unavailable NONE, XXXX Referring Unavailable Napoleon Mason Consulting Unavaila Napoleon Stauffer Attending Unavaila Napoleon Stauffer Referring Unavaila Napoleon Stauffer Admitting Unavaila MD Napoleon Stauffer Consulting Unava ilable Napoleon Mason Consulting Unavaila Napoleon Stauffer Attending Unavaila Napoleon Stauffer Referring Unavaila Napoleon Stauffer Admitting Unavaila MD Raza Merritt Attending Unavailable NONE, XXXX Referring Unavailable MD Raza Morel Admitting Unavailable MD Raza Morel Attending Unavailable NONE, XXXX Referring Unavailable MD Raza Morel Admitting Unavailable MD Raza Morel Attending Unavailable MD Raza Morel Referring Unavailable MD Raza Morel Admitting Unavailable FELISA Paris Attending Unavailable JASON VASQUES Attending Unavailabl e FELISA Paris Attending Unavailable Brii March MD Primary Care Provider Allergies Allergy ClassificationReported Allergen(s)Allergy TypeDate of OnsetReaction(s) Facility (1 source)Amino AcidsDrug [id number] Repository (3 sources)No Known Medication Allergies; Translations: [No Known Medication Allergies]Propensity to adverse reactions (disorder)[facility] Repository Medications Current Medications MedicationDrug Class(es)DatesSig (Normalized)Sig (Original)acetaminophen 325 mg oral tablet (10 sources)Start: 88-27-9007Zkrqcok 325 mg Tab 500 mg, Oral, q4hr, PRN Pain/Fever, Refills(s) 0, Pain Start Date: 12/29/23 Status: Ordered Repeat number: 1Start: 14-40-7983Ousmuss 325 mg Tab Oral, q4hr, PRN Pain/Fever, Refills(s) 0 Start Date: 12/29/23 Status: Orderedacetaminophen 325 mg / oxyCODONE hydrochloride 5 mg oral tablet (1 source)Opioid AgonistStart: 80-83-6154idoajfqogxxvn-oxycodone 325 mg-5 mg Tab TAKE 1 TABLET EVERY 6 HOURS NEEDED FOR PAIN FOR UP TO 4 DAYS. MAX 4 TABS PER DAY Start Date: 02/25/25 Status: Ordered Repeat number: 1sensor 200 actuat albuterol 0.09 mg/actuat dry powder inhaler (10 sources)beta2-Adrenergic AgonistStart: 63-04-7273mabv 2 puff(s) by inhalation every four hoursalbuterol (ProAir Digihaler) 90 mcg/act breath- activated inhaler (w/ sensor) 2 puff(s), Inhalation,q4hr w, 18 gm, Refill(s) 3, [facility], 167, cm, 12/08/23 9:25:00 EDT, Height/Length Dosing, 57.4, kg, 12/08/23 9:25:00 EDT, Weight Dosing 12/26/2023 Activetake 2 puff(s) by inhalation every four hoursalbuterol HFA 90 mcg/act inhaler Inhale 2 puffs every 4 (four) hours if needed ActiveAlbuterol Sulfate HFA ActiveAlbuterol (Eqv-ProAir HFA) 90 mcg/inh inhalation aerosol (13 sources)Start: 56-18-1617zium 2 puff(s) by inhalation every four hours Albuterol (Eqv-ProAir HFA) 90 mcg/inh inhalation aerosol 2 puff(s), Inhalation, q4hr w, 18 gm, Refill(s) 3, [facility], 167, cm, 05/07/24 10:26:00 EDT, Height/Length Dosing, 55.8, kg, 05/07/24 10:26:00 EDT, Weight Dosing Start Date: 05/18/24 Status: OrderedStart: 04-79-6065pfjj 2 puff(s) by inhalation every four hoursAlbuterol (Eqv-ProAir HFA) 90 mcg/inh inhalation aerosol 2 puff(s), Inhalation, q4hr w, 18 gm, Refill(s) 3, [facility], 167, cm, 12/08/23 9:25:00 EDT, Height/Length Dosing, 57.4, kg, 12/08/23 9:25:00 EDT, Weight Dosing Start Date: 12/26/23 Status: OrderedStart: 68-46-7324nhvs 2 puff(s) by inhalation every four hoursAlbuterol (Eqv-ProAir HFA) 90 mcg/inh inhalation aerosol 2 puff(s), Inhalation, q4hr w, 18 gm, Refill(s) 1, [facility], 167, cm, 02/27/23 15:05:00 EDT, Height/Length Dosing, 55, kg, 02/27/23 15:05:00 EDT, Weight Dosing Start Date: 10/23/23 Status: OrderedStart: 42-94-2051pdgf 2 puff(s) by inhalation every four hoursAlbuterol (Eqv-ProAir HFA) 90 mcg/inh inhalation aerosol 2 puff(s), Inhalation, q4hr w, 18 gm, Refill(s) 1, [facility], 167, cm, 12/24/22 8:42:00 EDT, Height/Length Dosing, 57.9, kg, 12/24/22 8:42:00 EDT, Weight Dosing Start Date: 01/22/23 Status: OrderedAlbuterol (Eqv-Proventil HFA) 90 mcg/inh inhalation aerosol (1 source)Start: 94-83-8631uzfl 2 puff(s) by mouth every four hours as needed Albuterol (Eqv-Proventil HFA) 90 mcg/inh inhalation aerosol See Instructions, INHALE 2 PUFFS BY MOUTH EVERY 4 HOURS NEEDED, # 6.7 gm, Refills(s) 3, Pharmacy: [facility], 167, cm, 11/19/2510:22:00 EST, Height/Length Dosing, 59.1, kg, 11/19/24 11:22:00 EST, Weight Dosing Start Date: 01/13/25 Status: Ordered Quantity: 6.7 Unit: g Repeat number: 1Aspir-81 (2 sources)Aspir-81 Activeaspirin 81 mg delayed release oral tablet (11 sources)Platelet Aggregation Inhibitor, Nonsteroidal Anti-inflammatory Drug Start: 01-38-4233kdgp 1 tablet by mouth once dailyaspirin 81 mg Oral EC Tab 81 mg = 1 tab(s), Oral, Daily, # 90 tab(s), Refills(s) 3, Pharmacy: [facility], 167, cm, 04/23/24 7:12:00 EDT, Height/Length Dosing, 56.8, kg, 04/23/24 7:12:00 EDT, Weight Dosing Start Date: 04/23/24 Status: Ordered Quantity: 90.0 Unit: tab(s) Repeat number: 4take 81 mg by mouth once dailyaspirin 81 MG oral suspension 81mg daily Wsjytf87 hr dilTIAZem hydrochloride 60 mg extended release oral capsule (8 sources)Calcium Channel Blockertake 1 capsule by mouth once dailydilTIAZem SR (Cardizem SR) 60 MG 12 hr capsule Take 1 capsule by mouth Daily Activetake 1 capsule by mouth every twenty-four hoursdilTIAZem HCl ER Coated Beads 120 MG 1 capsule Orally Once a day ActiveDilTIAZem (Eqv-Cardizem CD) 120 mg/24 hours oral capsule, extended release (13 sources)Start: 97-45-9246yjqw 1 capsule by mouth once dailyDilTIAZem (Eqv- Cardizem CD) 120 mg/24 hours oral capsule, extended release See Instructions, TAKE ONE CAPSULE BY MOUTH ONCE DAILY, # 30 EA, Refills(s) 11, Pharmacy: [facility], 167, cm, 11/19/24 11:22:00 EST, Height/Length Dosing, 59.1, kg, 11/19/24 11:22:00 EST, Weight Dosing Start Date: 01/13/25 Status: Ordered Quantity: 30.0 Unit: EA Repeat number: 1Start: 85-91-4662ywzx 1 capsule by mouth once dailyDilTIAZem (Eqv-Cardizem CD) 120 mg/24 hours oral capsule, extended release See Instructions, TAKE ONE CAPSULE BY MOUTH ONCE DAILY, # 90 caplet(s), Refills(s) 3, Pharmacy: [facility], 167, cm, 01/06/24 8:23:00 EDT, Height/Length Dosing, 56.9, kg, 01/06/24 8:23:00 EDT, Weight Dosing Start Date: 02/17/24 Status: OrderedStart: 11-24-0111abio 1 capsule by mouth once daily DilTIAZem (Eqv-Cardizem CD) 120 mg/24 hours oral capsule, extended release See Instructions, TAKE ONE CAPSULE BY MOUTH ONCE DAILY, # 90 caplet(s), Refills(s) 0, Pharmacy: [facility], 167, cm, 11/26/23 16:34:00 EST, Height/Length Dosing, 57, kg, 11/26/23 16:34:00 EST, Weight Dosing Start Date: 11/26/23 Status: OrderedStart: 12-24-2022 End: 09-06-0220oakr 1 capsule by mouth once dailyDilTIAZem (Eqv-Cardizem CD) 120 mg/24 hours oral capsule, extended release 120 mg = 1 cap(s), Daily, TAKE ONE CAPSULE BY MOUTH ONCE DAILY, X 30 day(s) Start Date: 12/24/22 Stop Date: 01/23/23 Status: Orderedfluticasone propionate 0.093 mg/actuat metered dose nasal spray (15 sources)CorticosteroidStart: 98-32-8999kdyd 2 spray(s) nasal route twice dailyXhance 93 mcg/inh nasal spray 2 spray(s), Nasal, BID, 16 mL, Refill(s) 5, INSTILL 2 SPRAYS (1 SPRAYIN EACH NOSTRIL) TWICE A DAY FOR 30 DAYS, [facility], 167, cm, 12/08/23 9:25:00 EDT, Height/Length Dosing, 57.4, kg, 12/08/23 9:25:00 EDT, Weight Dosing Start Date: 12/26/23 Status: Ordered Q uantity: 16.0 Unit: mL Repeat number: 6Start: 72-24-6278afke 2 spray(s) nasal route twice dailyXhance 93 mcg/inh nasal spray 2 spray(s), Nasal, BID, 16 mL, Refill(s) 2, INSTILL 2 SPRAYS (1 SPRAYIN EACH NOSTRIL) TWICE A DAY FOR 30 DAYS, [facility], 167, cm, 02/27/23 15:05:00 EDT, Height/Length Dosing, 55, kg, 02/27/23 15:05:00 EDT, Weight Dosing Start Date: 05/28/23 Status: Ordered Start: 92-98-1777Harsbl 93 mcg/inh nasal spray INSTILL 2 SPRAYS (1 SPRAY IN EACH NOSTRIL) TWICE A DAY FOR 30 DAYS Start Date: 12/24/22 Status: OrderedFluticasone Furoate 50 MCG/ACT (2 sources)take 2 puff(s) by inhalation once dailyFluticasone Furoate 50 MCG/ACT 2 puffs Inhalation Once a day Activegabapentin 300 mg oral capsule (3 sources)Anti-epileptic AgentStart: 96-10-4482byqg 1 capsule by mouth once daily at bedtimegabapentin 300 mg Cap 300 mg = 1 cap(s), Oral, Once a day (at bedtime), # 30 cap(s), Refills(s) 0, Pharmacy: [facility], 167, cm, 12/24/22 8:42:00 EDT, Height/Length Dosing, 57.9, kg, 12/24/22 8:42:00 EDT, Weight Dosing Start Date: 12/24/22 Status: Lakixbl34 hr isosorbide mononitrate 30 mg extended release oral tablet (6 sources)Nitrate Vasodilatorisosorbide mononitrate ER (Imdur) 30 MG 24 hr tablet Activelisinopril 5 mg oral tablet (8 sources)Angiotensin Converting Enzyme Inhibitortake 1 tablet by mouth once dailylisinopril 5 MG tablet Take 1 tablet by mouth Daily Activeloratadine 10 mg oral tablet (2 sources)take 1 tablet by mouth every twenty-four hoursClaritin 10 MG 1 tablet Orally Once a day Activemeloxicam 7.5 mg oral tablet (10 sources)Nonsteroidal Anti-inflammatory DrugStart: 11-13-7928mfbzqtikd 7.5 mg Tab Refills(s) 0 Start Date: 03/04/24 Status: OrderedStart: 67-54-7303tojiijgwy (Mobic) 15 MG tablet Take 15 mg by mouth 03/03/2024 ActivemethylPREDNISolone 4 mg oral tablet (1 source)CorticosteroidStart: 03-03-2024 End: 40-18-9647Ponwst 4 mg Tab = 1 packet(s), Oral, As Directed, as directed on package labeling, X 6 day(s), # 21tab(s), Refills(s) 0, Pharmacy: [facility], 167, cm, 03/03/24 15:07:00 EDT, Height/LengthDosing, 57, kg, 03/03/24 15:07:00 EDT, Weight Dosing Start Date: 03/03/24 Stop Date: 03/09/24 Status: Orderedmontelukast 10 mg oral tablet (20 sources)Leukotriene Receptor AntagonistStart: 73-44-2207qetz 1 tablet by mouth at bedtimemontelukast (Singulair) 10 MG tablet Indications: Chronic rhinitis Take 1 tablet (10 mg) by mouth at bedtime. 30 tablet 11 03/04/2023 Activenabumetone 750 mg oral tablet (6 sources)Nonsteroidal Anti-inflammatory Drugnabumetone (Relafen) 750 MG tablet Activenitroglycerin 0.4 mg sublingual tablet (6 sources)Nitrate Vasodilatornitroglycerin (Nitrostat) 0.[address] 1 tablet as needed by sublingual route. ActivepredniSONE (8 sources)Start: 97-92-7511nuwjvyEGPE Refills(s) 0 Start Date: 03/04/24 Status: OrderedStart: 94-15-9574mnfmpoYOAK (Deltasone) 50 MG tablet Indications: Nasal polyp Take 1 tablet for 5 days, then 1/2 tablet for 4 days. 9 tablet 05/14/2023 Activesucralfate 100 mg/ml oral suspension (6 sources)Aluminum Complexsucralfate (Carafate) 1 GM/10ML suspension Active traMADol hydrochloride 50 mg oral tablet (6 sources)Opioid AgonisttraMADol (Ultram) 50 MG tablet Active Completed/Discontinued Medications MedicationDrug Class(es)DatesSig (Normalized)Sig (Original)atorvastatin 80 mg oral tablet (20 sources)HMG-CoA Reductase InhibitorStart: 57-63-5189vnma 1 tablet by mouth once dailyatorvastatin 80 mg Tab 80 mg = 1 tab(s), Oral, Daily, TAKE ONE TABLET BY MOUTH DAILY, # 90 tab(s), Refills(s) 3, [facility], 167, cm, 11/19/24 11:22:00 EST, Height/Length Dosing, 59.1, kg, 11/19/24 11:22:00 EST, Weight Dosing Start Date: 01/14/25 Status: Ordered Quantity: 90.0 Unit: tab(s) Repeat number: 4Start: 27-80-4893xtiy 1 tablet by mouth once daily atorvastatin 80 mg Tab 80 mg = 1 tab(s), Oral, Daily, TAKE ONE TABLET BY MOUTH DAILY, # 90 tab(s), Refills(s) 3, Pharmacy: [facility], 167, cm, 12/08/23 9:25:00 EDT, Height/Length Dosing, 57.4, kg, 12/08/23 9:25:00 EDT, Weight Dosing Start Date: 12/26/23 Status: OrderedStart: 19-00-8319xtha 1 tablet by mouth once dailyatorvastatin 80 mg Tab 80 mg = 1 tab(s), Oral, Daily, TAKE ONE TABLET BY MOUTH DAILY, # 90 tab(s), Refills(s) 0, Pharmacy: [facility], 167, cm, 02/27/23 15:05:00 EDT, Height/Length Dosing, 55, kg, 02/27/23 15:05:00 EDT, Weight Dosing Start Date: 10/23/23 Status: OrderedStart: 12-26-2022 take 1 tablet by mouth once dailyatorvastatin 80 mg Tab 80 mg = 1 tab(s), Oral, Daily, TAKE ONE TABLET BY MOUTH DAILY, # 90 tab(s), Refills(s) 0, Pharmacy: [facility], 167, cm, 12/24/22 8:42:00 EDT, Height/Length Dosing, 57.9, kg, 12/24/22 8:42:00 EDT, Weight Dosing Start Date: 12/26/22 Status: Orderedtake 1 tablet by mouth every twenty-four hoursAtorvastatin Calcium 80 MG 1 tablet Orally Once a day Activeclopidogrel 75 mg oral tablet (20 sources)P2Y12 Platelet InhibitorStart: 86-15-7578aote 1 tablet by mouth once dailyclopidogrel 75 mg Tab 75 mg = 1 tab(s), Oral, Daily, TAKE ONE TABLET BY MOUTH DAILY, # 90 tab(s), Refills(s) 1, Pharmacy: [facility], 167, cm, 11/19/24 11:22:00 EST, Height/Length Dosing, 59.1, kg, 11/19/24 11:22:00 EST, Weight Dosing Start Date: 01/14/25 Status: Ordered Quantity: 90.0 Unit: tab(s) Repeat number: 2Start: 63-84-8262ltsy 1 tablet by mouth once dailyclopidogrel 75 mg Tab 75 mg = 1 tab(s), Oral, Daily, TAKE ONE TABLET BY MOUTH DAILY, # 90 tab(s), Refills(s) 1, Pharmacy: [facility], 167, cm, 05/26/24 10:06:00 EDT, Height/Length Dosing, 58, kg, 05/26/24 10:06:00 EDT, Weight Dosing Start Date: 06/23/24 Status: OrderedStart: 66-98-3104achq 1 tablet by mouth once daily clopidogrel (Plavix) 75 MG tablet Take 1 tablet by mouth Daily 12/26/2023 Active Start: 59-86-6354euhj 1 tablet by mouth once dailyclopidogrel 75 mg Tab 75 mg = 1 tab(s), Oral, Daily, TAKE ONE TABLET BY MOUTH DAILY, # 90 tab(s), Refills(s) 0, [facility], 167, cm, 02/27/23 15:05:00 EDT, Height/Length Dosing, 55, kg, 02/27/23 15:05:00 EDT, Weight Dosing Start Date: 10/23/23 Status: OrderedStart: 38-72-1567uziw 1 tablet by mouth once dailyclopidogrel 75 mg Tab 75 mg = 1 tab(s), Oral, Daily, TAKE ONE TABLET BY MOUTH DAILY, # 90 tab(s), Re fills(s) 0, Pharmacy: [facility], 167, cm, 12/24/22 8:42:00 EDT, Height/Length Dosing, 57.9, kg, 12/24/22 8:42:00 EDT, Weight Dosing Start Date: 12/26/22 Status: Orderedtake 1 tablet by mouth every twenty-four hoursClopidogrel Bisulfate 75 MG 1 tablet Orally Once a day Activelosartan potassium 25 mg oral tablet (20 sources)Angiotensin 2 Receptor BlockerStart: 44-49-4988ftyw 1 tablet by mouth once dailylosartan 25 mg Tab 25 mg = 1 tab(s), Oral, Daily, TAKE ONE TABLET BY MOUTH ONCE DAILY, # 90 tab(s),Refills(s) 1, Pharmacy: [facility], 167, cm, 11/19/24 11:22:00 EST, Height/Length Dosing,59.1, kg, 11/19/24 11:22:00 EST, Weight Dosing Start Date: 01/14/25 Status: Ordered Quantity: 90.0 Unit: tab(s) Repeat number: 2Start: 53-87-6269snzp 1 tablet by mouth once daily losartan 25 mg Tab 25 mg = 1 tab(s), Oral, Daily, TAKE ONE TABLET BY MOUTH ONCE DAILY, # 90 tab(s),Refills(s) 1, Pharmacy: [facility], 167, cm, 05/26/24 10:06:00 EDT, Height/Length Dosing,58, kg, 05/26/24 10:06:00 EDT, Weight Dosing Start Date: 06/23/24 Status: OrderedStart: 39-55-3748oasr 1 tablet by mouth once dailylosartan (Cozaar) 25 MG tablet Take 1 tablet by mouth Daily 12/26/2023 ActiveStart: 16-00-7209keaa 1 tablet by mouth once dailylosartan 25 mg Tab 25 mg = 1 tab(s), Oral, Daily, TAKE ONE TABLET BY MOUTH ONCE DAILY, # 90 tab(s),Refills(s) 0, [facility], 167, cm, 02/27/23 15:05:00 EDT, Height/Length Dosing,55, kg, 02/27/23 15:05:00 EDT, Weight Dosing Start Date: 10/23/23 Status: OrderedStart: 40-80-9437fxfq 1 tablet by mouth once daily losartan 25 mg Tab 25 mg = 1 tab(s), Daily, TAKE ONE TABLET BY MOUTH ONCE DAILY Start Date: 12/24/22Status: Orderedmetoprolol tartrate 25 mg oral tablet (20 sources)beta-Adrenergic BlockerStart: 97-12-1299lzxt 1 tablet by mouth twice dailyLopressor 25 mg oral tablet 25 mg = 1 tab(s), Oral, BID, TAKE ONE TABLET BY MOUTH TWICE A DAY, # 180 tab(s), Refills(s) 1, Pharmacy: [facility], 167, cm, 11/19/24 11:22:00 EST, Height/Length Dosing, 59.1, kg, 11/19/24 11:22:00 EST, Weight Dosing Start Date: 01/14/25 Status: Ordered Quantity: 180.0 Unit: tab(s) Repeat number: 2Start: 70-90-4752fajj 1 tablet by mouth twice daily Lopressor 25 mg oral tablet 25 mg = 1 tab(s), Oral, BID, TAKE ONE TABLET BY MOUTH TWICE A DAY, # 180 tab(s), Refills(s) 1, Pharmacy: [facility], 167, cm, 05/26/24 10:06:00 EDT, Height/Length Dosing, 58, kg, 05/26/24 10:06:00 EDT, Weight Dosing Start Date: 06/23/24 Status: OrderedStart: 16-55-8971oguh 1 tablet by mouth twice dailyLopressor 25 mg oral tablet 25 mg = 1 tab(s), Oral, BID, TAKE ONE TABLET BY MOUTH TWICE A DAY, # 180 tab(s), Refills(s) 1, Pharmacy: [facility], 167, cm, 12/08/23 9:25:00 EDT, Height/LengthDosing, 57.4, kg, 12/08/23 9:25:00 EDT, Weight Dosing Start Date: 12/26/23 Status: Ordered Metoprolol Tartrate Active Problems Active Problems Problem ClassificationProblemDateDocumented DateEpisodic/ChronicOpen wounds of head; neck; and trunk (1 source)Facial bhhknpbeeq07-81-4353QpuxmmkqEzxwmecehxtddf (8 sources)Arthritis of first carpometacarpal joint of right hand; Translations: [Unilateral primary osteoarthritis of first carpometacarpal joint, right hand] Onset: 09-04-2021 Resolved: 84-83-1490LnxcnmmAxemn aftercare (1 source)Post-discharge mtfcdn-cq37-66hc88-10-3568TibfwaaiWvuvy connective tissue disease (1 source)Pain in left lower leg; Translations: [PAIN IN LEFT LOWER LEG]Onset: 22-66-1792YfnbyxpiZsrjo connective tissue disease (1 source)Pain in left leg; Translations: [PAIN IN LEFT LEG]Onset: 12-27-2022 EpisodicOther connective tissue disease (9 sources)Foot bgjm73-36-1003UucjrwuuAbjor nervous system disorders (4 sources)Anesthesia of skin; Translations: [ANESTHESIA OF SKIN]Onset: 06-00-2355WduqtrsmHuitj upper respiratory disease (3 sources)Chronic rhinitis; Translations: [Chronic rhinitis]Onset: 05-29-2024 Resolved: 495554-39-4512ApunthhRfcla upper respiratory infections (2 sources)Bqwiqjeut91-04-9653YygdarjEanridzauawp (13 sources)Patient encounter aabypp32-41-2699Wetuugxuvnka (9 sources)Pain of left shoulder isoxys01-19-0981Jitmsygb veins of lower extremity (1 source)Pain co-occurrent and due to varicose veins of bilateral legs; Translations: [Varicose veins of bilateral lower extremities with pain]Onset: 47-86-8307Zsybeucl Past or Other Problems Problem ClassificationProblemDateDocumented DateEpisodic/ChronicAcute myocardial infarction (3 sources)Acute myocardial infarction of anterior wall; Translations: [ST elevation (STEMI) myocardial infarction involving other coronary artery of anterior wall]Onset: 04-20-2013 Resolved: 143699-10-3985FzguxdkAtxtcsqdrk disorders (3 sources)Left bundle branch block; Translations: [Left bundle-branch block, unspecified]Onset: 12-10-2012 Resolved: 074110-20-8432OwzhppzYwmikzeg atherosclerosis and other heart disease (9 sources)Old myocardial infarction; Translations: [Coronary atherosclerosis] Onset: 11-18-2013 Resolved: 56-37-9739VxvwgakVgvwkvzui of lipid metabolism (20 sources)Hyperlipidemia; Translations: [Pure hypercholesterolemia, unspecified]Onset: 05-28-2022 Resolved: 388329-74-7969PecogbgDrqhbwmoe hypertension (20 sources)Essential hypertension; Translations: [Essential (primary) hypertension]Onset: 05-28-2022 Resolved: 496724-25-8774LorvhpqZtemt valve disorders (3 sources)Heart murmur; Translations: [Cardiac murmur, unspecified]Onset: 12-04-2012 Resolved: 041602-60-8135NkubiwgwIrpaxav and fatigue (16 sources)Fatigue; Translations: [Other fatigue]Onset: 05-29-2024 Resolved: 807364-50-5629EoxrwoebIzsyflibhff chest pain (3 sources)Chest pain; Translations: [Chest pain, unspecified]Onset: 11-27-2012 Resolved: 380604-92-1573OruphgxsKbzef aftercare (1 source)[facility] (current) use of aspirin; Translations: [CUSTODIAL CURRENT USE OF ASPIRIN]Onset: 93-75-1024FxigccxqXnqcp aftercare (1 source)Other [facility] (current) drug therapy; Translations: [OTH DESK ATTENDANT CURRENT DRUG THERAPY]Onset: 71-19-4371UbirmuwyHraph aftercare (2 sources)Long-term current use of anticoagulant; Translations: [[facility] (current) use of anticoagulants]60-34-1998QljmeqeaNzvnp connective tissue disease (2 sources)Pain in right handOnset: 09-04-2021 Resolved: 05-24-9286MhhlnqpwSagxw connective tissue disease (2 sources)Pain in left handOnset: 09-04-2021 Resolved: 72-20-5618BmqjiwfhRdwbq connective tissue disease (3 sources)Lateral epicondylitis; Translations: [Lateral epicondylitis, unspecified elbow]Onset: 05-01-2016 Resolved: 766386-28-1607MlkpgwckBqmfq connective tissue disease (3 sources)Pain in left foot; Translations: [Pain in left foot]Onset: 05-29-2024 Resolved: 882570-67-7110EwpdqdhvCicls injuries and conditions due to external causes (1 source)Angioneurotic edema, initial encounter; Translations: [ANGIONEUROTIC EDEMA INITIAL ENCNTR]Onset: 83-82-7200CpmwzdxbXglmm non-epithelial cancer of skin (6 sources)Squamous cell carcinoma of skin of face; Translations: [Squamous cell carcinoma of skin of other parts of face]Onset: 81-64-6118XiwlvyuzMdcvi non- traumatic joint disorders (3 sources)Pain in left shoulder; Translations: [Pain in joint, shoulder region] Onset: 05-29-2024 Resolved: 355606-12-9763RaekgjewNyxof screening for suspected conditions (not mental disorders or infectious disease) (6 sources)Abnormal results of cardiovascular function studies; Translations: [Abnormal result of cardiovascular function study, unspecified]Onset: 12-01-2012 Resolved: 118552-87-9255LphpoqhiZyqdq skin disorders (3 sources)Localized swelling, mass and lump, head; Translations: [LOCALIZED SWELLING MASS AND LUMP HEAD]Onset: 14-35-8939PqvrqtplNwbas skin disorders (11 sources)Changes in skin texture; Translations: [Changes in skin texture] Onset: 05-29-2024 Resolved: 107680-53-7486WmqexkqhGcgvr upper respiratory disease (3 sources)Allergic rhinitis; Translations: [Allergic rhinitis, unspecified] Onset: 11-27-2012 Resolved: 103943-51-1467ZobcftzUzxuj upper respiratory disease (5 sources)Nasal polyp, unspecified; Translations: [NASAL POLYP UNSPECIFIED] Onset: 41-27-1096SyygmchyYcpvq upper respiratory infections (4 sources)Acute maxillary sinusitis, unspecified; Translations: [ACUTE MAXILLARY SINUSITIS UNS]Onset: [id number] and visceral atherosclerosis (20 sources)Peripheral vascular disease; Translations: [Peripheral vascular disease, unspecified]Onset: 12-04-2012 Resolved: [id number] codes; unclassified (13 sources)Trying to give up smoking; Translations: [Tobacco use]Onset: 05-29-2024 Resolved: [id number]-cuwncfn disorders (20 sources)Smoker; Translations: [Nicotine dependence, cigarettes, uncomplicated]Onset: 12-16-2013 Resolved: [id number] on above:Added secondary to documentation in Social History. Results Test NameValueInterpretationReference RangeFacilityHeart and Vascular Office/Clinic Noteon [id number] and Vascular Office/Clinic NoteHeart and Vascular Office/Clinic Note Chief Complaint 2 week f/u History of Present Illness Patient is a very pleasant cantankerous 64-year-old female who tripped over a dog's leash 2 days postcatheterization she had staged PCI of her right coronary artery which was initially to be staged ayear ago. She had no interval symptoms in the intervening year discontinued smoke. Review of the chart reveals that prior to her fall she had had at least 6 beers and had had a neighbors marijuana gummy. No active heart failure wrist looks fine all questions were answered meds are in line 6-month follow-up. Review of Systems PHQ Score Initial Depression Screen Score: 0 SCORE Constitutional: no fever, no sweats, no weakness [...] noncontributory. Physical Exam Vitals & Measurements HR: 67(Peripheral) RR: 16 BP: 160/70 SpO2: 100% HT: 167 cm HT: 66 in WT: 60.2 kg WT: 132.718 lb BMI: 21.59 General: alert, no acute distress Skin: warm, [...] appropriate for agesensation equal & normal bilaterally, speechnormal Psychiatric: cooperative, affect appropriate for age, normal judgement, normal psychiatric thoughts. Assessment/Plan 1. copd - stable 2. Hx CAD - recent RCA PCI, all questions answered, 6-month follow-up Follow-up No qualifying data available Problem List/Past Medical History Ongoing Changes in skin texture Essential hypertension Fatigue Hospital discharge follow-up Hyperlipidemia Laceration of face Left foot pain Left shoulder pain Screening for thyroid disorder Severe claudication Sinusitis Smoker Smoking trying to quit Historical No qualifying data Procedure/Surgical History PCI - Percutaneous coronary intervention (02/15/2025), Excision of lesion of skin (05/26/2024), Cardiac catheterization, left heart (04/23/2024), PCI - Percutaneous coronary intervention (04/23/2024), Angiography of artery of left lower extremity (12/29/2023), section (04/12/1993). Medications acetaminophen-oxycodone 325 mg-5 mg Tab, Not taking Albuterol (Eqv-Proventil HFA) 90 mcg/inh inhalation aerosol, [...] days, Smoker, current status unknown Tobacco Use:. Household tobacco concerns: No., 03/03/2025 Family History Bipolar: Mother. Hypertension: Father. Renal failure syndrome: Mother. Immunizations Vaccine Date Status Comments influenza virus vaccine, inactivated - Not Given Patient Refuses SARS-CoV-2 (COVID-19) mRNA BNT-162b2 vax 08/29/2021 Recorded 2022-12-23: TPV60 SARS-CoV-2 (COVID-19) mRNA BNT-162b2 vax 12/01/2020 Recorded SARS-CoV-2 (COVID-19) mRNA BNT-162b2 vax 11/10/2020 Recorded influenza, whole 07/15/2007 Recorded hepatitis B adult vaccine 08/30/2005 Recorded hepatitis B adult vaccine 05/31 (more content not included)...[facility] for RehabilitationComment on above:Result Comment: Electronically Signed By: Maria Teresa YE, Raza Croft\.br\Date and Time Signed: 03/07/25 14:09 EDTProvider Letteron [id number] LetterProvider Letter March 01, 2025 MARIA EM [address] [place] [phone] : 1960 To Whom It May Concern, Please excuse above patient from work. May Return to Work On: 03/02/2025 Restrictions: None Sincerely, [address] [address] RbznyxRyxjteBerger HospitalAmbulatory Visit Summaryon [id number] Visit SummaryAmbulatory Visit Summary MARIA EM :1960 Visit Date:02/25/2025 Ambulatory Visit Instructions Your Diagnosis BMI 20.0-20.9, adult Smoker Hospital discharge follow-up Laceration of face Your Care Team Attending Physician - Saray Staley Primary Care Physician - Saray Staley This Is Your Medications List acetaminophen (Tylenol 325 mg Tab) acetaminophen-oxycodone (acetaminophen-oxycodone 325 mg-5 mg Tab) albuterol (Albuterol (Eqv-Proventil HFA) 90 mcg/inh inhalation aerosol) aspirin (aspirin 81 mg Oral EC Tab) atorvastatin (atorvastatin 80 mg Tab) clopidogrel (clopidogrel 75 mg Tab) diltiazem (DilTIAZem (Eqv-Cardizem CD) 120 mg/24 hours oral capsule, extended release) fluticasone nasal (Xhance 93 mcg/inh nasal spray) losartan (losartan 25 mg Tab) metoprolol (Lopressor 25 mg oral tablet) montelukast (montelukast 10 mg Tab) Procedures Performed PCI - Percutaneous coronary intervention (02/15/2025), Excision of lesion of skin (05/26/2024), Cardiac catheterization, left heart (04/23/2024), PCI - Percutaneous coronary intervention (04/23/2024), Angiography of artery of left lower extremity (12/29/2023), section (04/12/1993). Discharge Vitals Heart Rate (Peripheral) 76 Respiratory Rate 18 Blood Pressure 132/74 Height 167.0 cm Height 66 in Weight 57.9 kg Weight 127.647 lb BMI 20.76 What to do next Scheduled Follow-Up Appointments 2024 3:45 PM EDT With: Maria Teresa YE, Raza Croft Where: [facility] Medications What How Much When Instructions Unchanged acetaminophen (Tylenol 325 mg Tab) 500 Milligram By Mouth Every 4 hours as needed for Pain/Fever Unchanged acetaminophen-oxycodone (acetaminophen-oxycodone 325 mg-5 mg Tab) TAKE 1 TABLET EVERY 6 HOURS NEEDED FOR PAIN FOR UP TO 4 DAYS. MAX 4 TABS PER DAY Unchanged albuterol (Albuterol (Eqv-Proventil HFA) 90 mcg/ inh inhalation aerosol) See instructionsINHALE 2 PUFFS BY MOUTH EVERY 4 HOURS NEEDED Unchanged aspirin (aspirin 81 mg Oral EC Tab) 1 Tablets By Mouth Every day Unchanged atorvastatin (atorvastatin 80 mg Tab) 1 Tablets By Mouth Every day TAKE ONE TABLET BY MOUTH DAILY Unchanged clopidogrel (clopidogrel 75 mg Tab) 1 Tablets By Mouth Every day TAKE ONE TABLET BY MOUTHDAILY Unchanged diltiazem (DilTIAZem (Eqv-Cardizem CD) 120 mg/ [...] Mouth 2 times a day TAKE ONE TABLETBY MOUTH TWICE A DAY Unchanged montelukast (montelukast 10 mg Tab) 1 Tablets By Mouth At bedtime TAKE ONE TABLET BY MOUTH ONCE DAILY Allergies No Known Medication Allergies Problems Ongoing - Any problem that you are currently receiving treatment for. Changes in skin texture Essential hypertension Fatigue Hospital discharge follow-up Hyperlipidemia Laceration of face Left foot pain Left shoulder pain Screening for thyroid disorder Severe claudication Sinusitis Smoker Smoking trying to quit Patient Survey You may receive a survey via text or e-mail asking about your office visit. Please share your experience with us by completing your survey. We appreciate your feedback and thank you for choosing us for your care. [facility] Medicine Office/Clinic Noteon [id number] Medicine Office/Clinic NoteFabrookline hospital Medicine Office/Clinic Note HPI Staff Maria is a 64 year old female presenting for ER follow up ER followup: Hospital: [facility] Visit date: 02/18/25(pt was transferred to [facility]) records requested Symptoms the patient presented with: fall, laceration to left side of head, tripped over dog leash.Around 29 stitches Symptom onset/injury onset: Testing Performed: New medications: New specialist involved Therapy ordered: Next appointment date: Current concerns: Pt states no pain to head or neck, right wrist continues to have pain does wear ahard brace. History of Present Illness pt presents today for ER follow up. fell and had laceration on face with sutures Review of Systems PHQ Score Initial Depression Screen Score: 0 SCORE Physical Exam Vitals & Measurements HR: 76(Peripheral) RR: 18 BP: 132/74 SpO2: 98% HT: 167.0 cm HT: 66 in WT: 57.9 kg WT: 127.647 lb BMI: 20.76 General: alert, no acute distress ENMT: oral mucosa moist, no pharyngeal erythema or exudate Cardiovascular: regular rate and rhythm, normal peripheral perfusion Respiratory: Lungs CTA, respirations non labored Extremities: no deformity, no trauma Neurological: oriented x 4, LOC appropriate for age, CN II-XII intact, motor strength equal & normal bilaterally, speech normal Assessment/Plan 1. Hospital discharge follow-up (Z09: Encounter for follow-up examination after completed treatmentfor conditions other than malignant neoplasm) pt was outside after drinking and taking gummies and her 60 pound dog knocked her over she landed on a planter and sliced her face open. she was taken to [facility] and they transferred her to [place] for surgical repair of laceration. laceration is healing well. sutures removed without difficulty. return to work on Friday 2. Laceration of face (S01.81XA: Laceration without foreign body of other part of head, initial encounter) multiple sutures removed from facial laceration. area is healing well. no redness or drainage notedin office today. 3. BMI 20.0-20.9, adult (Z68.20: Body mass index [BMI] 20.0-20.9, adult) BMI education given 4. Smoker (F17.200: Nicotine dependence, unspecified, uncomplicated) consider not smoking Orders: brompheniramine/dextromethorphan/PSE, 5 mL, Oral, QID for cough and congestion, 200 mL, Refill(s) 0, [facility], 167, cm, 11/19/24 11:22:00 EST, Height/Length Dosing, 59.1, kg, 11/19/24 11:22:00 EST, Weight Dosing Follow-up No qualifying data available Problem List/Past Medical History Ongoing Changes in skin texture Essential hypertension Fatigue Hospital discharge follow-up Hyperlipidemia Laceration of face Left foot pain Left shoulder pain Screening for thyroid disorder Severe claudication Sinusitis Smoker Smoking trying to quit Historical No qualifying data Procedure/Surgical History PCI - Percutaneous coronary intervention (02/15/2025), Excision of lesion of skin (05/26/2024), Cardiac catheterization, left heart (04/23/2024), PCI - Percutaneous coronary intervention (04/23/2024), Angiography of artery of left lower extremity (12/29/2023), section (04/12/1993). Medications acetaminophen-oxycodone 325 mg-5 mg Tab Albuterol (Eqv-Proventil HFA) 90 mcg/inh inhalation aerosol, [...] 05/31/2005 Recorded hepatitis B adult vaccine 04/29/2005 RecordedChildren[facility] for Rehabilitation Comment on above:Result Comment: Electronically Signed By: Raina ROBERTO, Saray Lomas\.br\Date and Time Signed: 02/25/25 12:34 EDTProvider Letteron 02-25-2025 Provider LetterProvider Letter February 25, 2025 MARIA EM [address] [place] [phone] : 1960 To Whom It May Concern, Please excuse above patient from work. May Return to Work On: 03/02/2025 Sincerely, Family Medicine [address] [address] ZmpnfhHghyunChildren's Hospital for RehabilitationDischarge Instructionson [id number] InstructionsDischarge Instructions MARIA EM :1960 Visit Date:02/15/2025 Inpatient [...] call if you need to reschedule Where: [address] [place] [phone] [phone] [facility] (1) Follow Up with Saray Paris When: In 0 days Medications What How Much When Why Instructions Next Dose Unchanged acetaminophen (Tylenol 325 mg Tab) 500 Milligram By Mouth Every 4 hours as needed for Pain/Fever Unchanged albuterol (Albuterol (Eqv-Proventil HFA) 90 mcg/ inh inhalation aerosol) See instructionsINHALE 2 PUFFS BY MOUTH EVERY 4 HOURS [...] Mouth Every day TAKE ONE TABLET BY MOUTHDAILY Unchanged diltiazem (DilTIAZem (Eqv-Cardizem CD) 120 mg/ [...] Mouth 2 times a day TAKE ONE TABLETBY MOUTH TWICE A DAY Unchanged montelukast (montelukast [...] Implanted PCI of RCA Right Coronary Artery [facility] 02/15/2025 Body Site Undefined [facility] 02/15/2025 [employer] [place], [place] Cardiovascular PCI DISCHARGE INSTRUCTIONS Diet: ??? [...] for any reason without talking to your insurance claims analyst Site Care: ??? Do not remove dressing for 24 hours unless it becomes saturated, then re (more content not included)...[facility] Hospital for RehabilitationComment on above:Result Comment: Electronically Signed By: Bandar SCHROEDER, Cardio, Giana\.br\Date and Time Signed: 02/18/25 11:43 EDTDischarge Instructionson [id number] InstructionsDischarge Instructions MARIA EM :1960 Visit Date:02/15/2025 Inpatient [...] Follow-Up Appointments 2024 3:45 PM EDT With: Raza Morel MD Where: Cardiology Clinic New Follow Up Appointments after Discharge Follow Up with Raza Morel When: 03/03/2025 03:45 PM EDT Comments: Appointment has already been scheduled Please call if you need to reschedule Where: [address] [place], [place] [address] [phone] Business (1) Follow Up with Saray Raina When: In 0 days Medications What How Much When Why Instructions Next Dose Unchanged acetaminophen (Tylenol 325 mg Tab) 500 Milligram By Mouth Every 4 hours as needed for Pain/Fever Unchanged albuterol (Albuterol (Eqv-Proventil HFA) 90 mcg/ inh inhalation aerosol) See instructionsINHALE 2 PUFFS BY MOUTH EVERY 4 HOURS [...] Mouth Every day TAKE ONE TABLET BY MOUTHDAILY Unchanged diltiazem (DilTIAZem (Eqv-Cardizem CD) 120 mg/ [...] Mouth 2 times a day TAKE ONE TABLETBY MOUTH TWICE A DAY Unchanged montelukast (montelukast [...] Implanted PCI of RCA Right Coronary Artery [facility] 02/15/2025 Body Site Undefined [facility] 02/15/2025 [employer] [place], [place] Cardiovascular PCI DISCHARGE INSTRUCTIONS Diet: ??? [...] for any reason without talking to your insurance claims analyst Site Care: ??? Do not remove dressing for 24 hours unless it becomes saturated, then re (more content not included)...[facility] for RehabilitationComment on above:Result Comment: Electronically Signed By: Bandar SCHROEDER, Cardio, Giana\.br\Date and Time Signed: 02/15/25 14:17 EDTOther Comment: duplicatedHeart and Vascular Office/Clinic Noteon [id number] and Vascular Office/Clinic NoteHeart and Vascular Office/Clinic Note Chief Complaint 4 month follow up HLD, HTN, CAD History of Present Illness Patient is a very pleasant 64-year-old chronic smoker with a history of LAD stenosis which has beenstented x 2 she had residual 90% stenosis of her proximal right coronary artery there was talk about staging her previous insurance claims 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 had left she could not get exertional [...] appropriate for agesensation equal & normal bilaterally, speechnormal Psychiatric: cooperative, affect appropriate for age, normal [...] Not Given Patient Refuses SARS-CoV-2 (COVID-19) mRNA B (more content not included)...[facility] for RehabilitationComment on above:Result Comment: Electronically Signed By: Maria Teresa YE, Raza Croft\.br\Date and Time Signed: 02/07/25 15:04 EDTFamily Medicine Office/Clinic Noteon [id number] Medicine Office/Clinic NoteFaorly Medicine Office/Clinic Note HPI Staff Maria is a 64 [...] Tobacco Use:., 09/27/2024 Family History Bipolar: Mother. Hyperte (more content not included)...[facility] Hospital for RehabilitationComment on above:Result Comment: Electronically Signed By: Saray Staley.doug\Date and Time Signed: 11/19/24 11:29 ESTAmbulatory Visit Summaryon 09-27-2024 Ambulatory Visit SummaryAmbulatory Visit Summary MARIA EM :1960 Visit Date:09/27/2024 Ambulatory Visit Instructions Your Diagnosis Sinusitis Smoker BMI 20.0-20.9, adult Your Care Team Attending Physician - KRISTEL VASQUES CNP Primary Care Physician - Ry YE, Brii Loomis This Is Your Medications List acetaminophen (Tylenol [...] EST With: Jarad YE, Gaetano Rios Where: Cardiology Clinic [facility] What How Much When Why Instructions New azithromycin (azithromycin 250 mg Tab) 1 Packets By Mouth As Directed Sinusitis Duration: 5 Days as directed on package labeling Pickup at [facility] Unchanged acetaminophen (Tylenol 325 mg Tab) 500 Milligram By Mouth Every 4 hours as needed for Pain/Fever Unchanged albuterol (Albuterol (Eqv-Proventil HFA) 90 mcg/ inh inhalation aerosol) See instructionsINHALE 2 PUFFS BY MOUTH EVERY 4 HOURS NEEDED Unchanged aspirin (aspirin 81 mg Oral EC Tab) 1 Tablets By Mouth Every day Unchanged atorvastatin (atorvastatin 80 mg Tab) 1 Tablets By Mouth Every day TAKE ONE TABLET BY MOUTH DAILY Unchanged clopidogrel (clopidogrel 75 mg Tab) 1 Tablets By Mouth Every day TAKE ONE TABLET BY MOUTHDAILY Unchanged diltiazem (DilTIAZem (Eqv-Cardizem CD) 120 mg/ [...] Mouth 2 times a day TAKE ONE TABLETBY MOUTH TWICE A DAY Unchanged montelukast (montelukast 10 mg Tab) 1 Tablets By Mouth At bedtime TAKE ONE TABLET BY MOUTH ONCE DAILY Pharmacy Information [facility]: [address] [place], [place] [phone] Allergies No Known Medication Allergies Problems Ongoing [...] swelling, and warmth in the sinuses. ??? (more content not included)...[facility] Medicine Office/Clinic Noteon [id number] Medicine Office/Clinic NoteChanning Home Medicine Office/Clinic Note HPI Staff Maria is a 64 [...] Illness 86 year old patient of Kamar Paris CNP presents today for an acute visit [...] day(s), # 6 tab(s), Refills(s) 0, Pharmacy: [facility], 167, cm, 09/27/24 12:44:00 EST, [...] data available Patient Education Sinus Infection, Adult, Abco-gz-Hvzf Problem List/Past Medical History Ongoing Changes in [...] 05/31/2005 Recorded hepatitis B adult vaccine 04/29/2005 RecordedChildren[facility] Hospital for Rehabilitation Comment on above:Result Comment: Electronically Signed By: KRISTEL VASQUES CNP\Date and Time Signed: 09/27/24 13:06 ESTHeart and Vascular Office/Clinic Noteon [id number] and Vascular Office/Clinic NoteHeart and Vascular Office/Clinic Note Chief Complaint 3 month f/u - CAD History of Present Illness The patient is a 64-year-old female with past cardiac history of CAD, last PCI earlier this year with PCI of the LAD, and prior PCI in the remote past. She is a former patient of Dr. Bruno. She comes for a scheduled follow-up appointment. [...] as well as his accompanying family member/friend thatthe patient may have stent thrombosis or heart attack and the patient agrees. I myself have specifically counseled the patient regarding stent thrombosis risk including and the patient will additionally be counseled by the Operational Intelligence Officer team and in follow-up. [2] Assessment/Plan 1. CAD in [place] artery (I25.10: Atherosclerotic heart disease of [place] coronary artery without angina pectoris) The patient has unrevascularized RCA territory. I independently reviewed prior angiogram; there is an evidence of a calcified nodule in the mid RCA, which will likely require plaque modification techniques, either coronary lithotripsy if balloon can be delivered, or rotational atherectomy. She is totally asymptomatic from the cardiac standpoint on 2 antianginals; stress test showed no evidence ofreversibility. At this point, we will continue medical [...] HFA) 90 mcg/inh inhalation aerosol, 2 puff(s), Inhala (more content not included)...[facility] for RehabilitationComment on above: Result Comment: Electronically Signed By: Gaetano Abraham MD.doug\Date and Time Signed: 08/06/24 15:36 ESTOperative Reporton [id number] Report Operative Report SURGERY DATE: 05/26/2024 PREOPERATIVE DIAGNOSIS: [...] was [facility] at whichtime she was placed in the reclined position. The area of the prior biopsy was identified. The areaof the soft tissues was locally infiltrated with [...] tissue defect. The subcutaneous soft tissues and thedermis were reapproximated using 5-0 PDS buried suture. The skin edges were then trimmed to proper alignment, and they were then reapproximated using a 6-0 nylon running simple suture. Adequate approximation of the wound edge was appreciated. The wound was then cleaned and dressed with antibiotic oi ntment. Anesthesia was then reversed and the patient awoke without difficulty. The patient was taken to Postanesthesia Care Unit in stable and satisfactory condition. Solitario Cabrera Dictated: 05/26/2024 [id number] Transcribed: 05/26/2024NoBerger HospitalComment on above:Result Comment: Electronically Signed By: Jani Nguyen DO\.br\Date and Time Signed: 06/09/24 08:25 EDTSurgical Pathology Reporton [id number] Pathology ReportJ.W. Ruby Memorial Hospital [address] [place] [address]- Surgical Pathology Report Collected Date/Time: 05/26/2024 11:44 [...] Description Microscopic examination performed unless gross only specified.[facility] for RehabilitationComment on above:Performed By: #### [id number] #### [facility] [address] [place], [place] [address]Ocyi OR Intraoperative Recordon [id number] OR Intraoperative RecordMain OR Intraoperative Record IntraOp Document Type FT Summary Primary Physician: Jani Nguyen DO Finalized Date/Time: 05/27/24 11:50:38 Pt. Name: MARIA EM/Sex: 1960 Female Med Rec #: [id number] Physician: Jani Nguyen DO Financial #: [id number] Pt. Type: A Room/Bed: [place] [address] Admit/Disch: 05/26/24 09:34:27 - 05/26/24 12:25:00 Institution: Case Times FT Entry 1 Patient Times In Room 05/26/24 11:23:00 Out Room 05/26/24 12:12:00 Procedure Times Start 05/26/24 11:42:00 Stop 05/26/24 12:09:00 Anesthesia Times Last Modified By: Shahab Zhao 05/26/24 12:12:57 General Comments: 05/27/24 Chart opened for charge review per Ginna Quiñonez RN. MN Case Attendance FT Entry 1 Entry 2 Entry 3 Case Attendee Jani Nguyen DO, RN, Wilda Capps A Role Performed Surgeon - Primary Rn Chronic - Primary Scrub - Primary Time In [...] Terry T Role Performed Scrub - Relief Rn Chronic - Primary Time In 05/26/24 11:30:00 05/26/24 [...] Nguyen DO, Given Participants Kinjal Patten RN, Percevel CST, Wolf M Time Out Complete 05/26/24 11:33:00 Outcomes Met? [...] Yes RIGHT CHEEK Last Modified By: Khang RN, BSN, Kady 05/27/24 11:48:59 Post-Care Text: The patient is free from signs and symptoms of infection Skin Assessment (Pre Procedure) FT Pre-Care Text: Implements protective measures to prevent skin/ tissue injury due to thermal or mechanical sources Evaluates for signs and symptoms of physical injury to skin and tissue Entry 1 Skin Integrity Intact, [place], Warm, & Skin Abnormality No Dry Outcomes Met? Yes Last Modified By: Sandor SCHROEDER, Kinjal Engel 05/26/24 11:53:43 Post-Care Text: The patient is free from signs and symptoms of injury caused by extraneous objects Patient Positioning FT Pre-Care Text: Identifies physical alterations that require additional (more content not included)...[facility] for RehabilitationDischarge Instructionson 05-26-2024 Discharge InstructionsDischarge Instructions MARIA EM :1960 Visit Date:05/26/2024 Inpatient [...] Mouth Every day TAKE ONE TABLET BY MOUTHDAILY Unchanged diltiazem (DilTIAZem (Eqv-Cardizem CD) 120 mg/ [...] Mouth 2 times a day TAKE ONE TABLETBY MOUTH TWICE A DAY Unchanged montelukast (montelukast [...] look like a lump or bump. Some aremoles or cysts. Warts and skin tags are also skin lesions. Most skin lesions do not cause problems.You may want them removed because of how [...] Be sure to include all prescription and dkff-omh-fptouok (OTC) drugs,and herbal supplements. Tell the doctor about any drug allergy. Bring a list of drugs you take withyou. ? Any bleeding problems. Be sure to [...] decide which is the best way to take(more content not included)...[facility] for RehabilitationComment on above:Result Comment: Electronically Signed By: Lily SCHROEDER, Tamanna Drummond\.doug\Date and Time Signed: 05/26/24 12:19 EDTInpatient Patient Summary on [id number] Patient SummaryInpatient Patient Summary [place] [id number] 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 TAKE ONE TABLET BY MOUTH DAILY.Refills: 3. clopidogrel (clopidogrel 75 mg Tab) 1 [...] times a day. TAKE ONE TABLET BY MOUTHTWICE A DAY. Refills: 1. montelukast (montelukast 10 mg Tab) 1 Tablets By Mouth at bedtime. TAKE ONE TABLET BY MOUTH ONCE DAILY. Refills: 4. Comment:[facility] PACU II Recordon 09-88-9000Zlts OR PACU II RecordMain OR PACU II Record PACU Phase II Document Type FT Summary Primary Physician: Jani Nguyen DO Finalized Date/Time: 05/26/24 14:06:04 Pt. Name: EMEDGARDOROYCE Bartlett./Sex: 1960 Female Med Rec #: [id number] Physician: Jani Nguyen DO Financial #: [id number] Pt. Type: A Room/Bed: [place] [address] Admit/Disch: 05/26/24 09:34:27 - Institution: Case Times [...] and monitors body temperature Evaluates postoperative respiratory statusEvaluates postoperative cardiac status Evaluates postoperative neurological status Assesses pain control, collaborated in initiating patient-controlled analgesia and implements alternative methods of pain control Verifies allergies, administers prescribed medications and solutions, evaluates response to medications Entry 1 In PACU II 05/26/24 12:18:00 Discharge from PACU 05/26/24 12:25:00 II Outcomes Met? Yes Last Modified By: Lily SCHROEDER, Tamanna Drummond 05/26/24 14:06:03 Post-Care Text: The patient demonstrates knowledge of the expected response to the operative or invasive procedure The patient's care is consistent with the individualized perioperative plan of care The patient's rightto privacy is maintained The patient's value system, [...] with or improved from baseline levels established preoperativelyThe patient's cardiovascular status is consistent with or improved from baseline levels established preoperatively The patient's neurological status is consistent with or improved from baseline levels established preoperatively The patient demonstrates and/or reports adequate pain control throughout the perioperative period The patient received appropriate medication(s), safely administered during the perioperativeperiod Finalized By: Tamanna Bautista RN Document Signatures Signed By: Tamanna Bautista RN 05/26/24 14:06NoBerger HospitalOperative Reporton [id number] ReportOperative Report Patient: MARIA EM Age: 63 years Sex: Female : 1960 Associated Diagnoses: None Author: Jani Nguyen DO Postoperative Information Preoperative Diagnosis: SCC right cheek, 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 Postoperative Diagnosis: same. Performed by: Jani Nguyen DO. Specimens Removed: SCC right cheek. Estimated Blood Loss: 5 ml. Complications: None. Wide excision of SCC right cheek, FS, Complex repair 3cm Anesthesia type: local.[facility] for RehabilitationComment on above:Result Comment: Electronically Signed By: Jani Nguyen DO\.br\Date and Time Signed: 05/26/24 12:11 EDTOutpatient Surgery Discharge Instructionon 05-26-2024 Outpatient Surgery Discharge InstructionOutpatient Surgery Discharge Instruction [place] [id number] Patient Discharge Instructions PERSON INFORMATION Name: MARIA [...] THE NEAREST EMERGENCY ROOM OR CALL 911 MARIA ANTONIA Grace SHERRI L, have received the attached patient education materials/instructions and have verbalized understanding: May we do a follow up call? Yes No I was present when discharge instructions were given Patient Signature Date Clinican/Nurse Signature Date Follow up: With: Address: When: Jani Nguyen [facility] Location [facility] Follow Up (FT) FTCardiology Clinic 08/03/2024 3:45 PM 08/03/2024 4:00 PM [...] to serve you. Thank you for choosing [facility] HERE ARE THE MEDICATION CHANGES THAT OCCURRED [...] every day. TAKE ONE TABLET BY MOUTH DAILY.Refills: 3. clopidogrel (clopidogrel 75 mg Tab) 1 [...] times a day. TAKE ONE TABLET BY MOUTHTWICE A DAY. Refills: 1. montelukast (montelukast 10 mg Tab) 1 Tablets By Mouth at bedtime. TAKE ONE TABLET BY MOUTH ONCE DAILY. Refills: 4. PATIENT EDUCATION INFORMATION Instructions: Medication Leaflets:[facility] RehabilitationHeart and Vascular Office/Clinic Noteon 31-51-0916Zkwjq and Vascular Office/Clinic NoteHeart and Vascular Office/Clinic Note Chief Complaint 2 wk S/P PCI History of Present Illness Maria is a 63 year old female with past medical hx of CAD, HLD, HTN and is in the office today forfollow up 2 week s/p PCI. Maria had 1 stent of the LAD 04/23/2024, pt compliant with current medications and her vitals are stable at this time. Pt reports she had a stent placed over 10 years ago, prior to that stent she hadno symptoms and prior to her first NV she only went to the ER due to extreme fatigue. Recently, it was suggested by her HUMAN RESOURCE ADVISOR that she should establish with a insurance claims analyst due to the cardiac medicationsshe is on and due to her hx, Upon establishment with us she had an abnormal stress test which is what led to her recent PCI. Pt states she is feeling good over all. Pt will look into starting cardiacrehab in [place] if it works out, but does not want to have to come to [place] multiple times a week to do it, we will send referral for [place] in the office today , pt is [...] and wishes to seek advice from a insurance claims analyst. She had undergone a stenting procedure around [...] edema right lower extremity Right radial access siteis clean, dry, intact. No bruising, bleeding, or hematoma. Strong radial pulse with good extremity perfusion. Neurological: oriented x 4, LOC appropriate for age, speech normal Skin: Warm, dry, intact- no rash or concerning lesions Assessment/Plan 1. CAD in [place] artery (I25.10: Atherosclerotic heart disease of [place] coronary artery without angina pectoris) Successful PCI to the LAD 04/23/2024 , hx of prior stent placement 10+ years ago; Pt should continuecurrent medications aspirin 81 mg qD, Plavix 75 [...] 80 mg= 1 tab(s), Oral, Daily, 3 ref (more content not included)...[facility] Hospital for RehabilitationComment on above:Result Comment: Electronically Signed By: Otto Abreu PA-C\.br\Date and Time Signed: 05/07/24 11:25 EDT\.br\Electronically Co-Signed By: Ainsley Short\.br\Date and Time Co-Signed: 05/07/24 10:46 EDTOperative Reporton 05-07-2024 Operative ReportOperative Report Indication for Surgery Angina, known CAD, [...] as well as his accompanying family member/friend thatthe patient may have stent thrombosis or heart attack and the patient agrees. I myself have specifically counseled the patient regarding stent thrombosis risk including and the patient will additionally be counseled by the Operational Intelligence Officer team and in follow-up. Complications None Technique Following full and informed consent the patient was brought to the Operational Intelligence Officer where sterile prep and drape were administered in usual fashion. Anesthesia was obtained in the right wrist with lidocaine after administration of conscious sedation. A 5/6 slender Terumo sheath was placed in the right radial artery without complication. Nitroglycerin and nicardipine were given via the sheath and heparin was given intravenously. A 5 Kenyan JACKE catheter was advanced and selectively engaged [...] LMT following which the flow wire was advancedinto the proximal vessel and normalized. The flow wire was advanced across the lesion of the mid LAD following which an IFR measurement was obtained. The wire was used for intervention, predilatationperformed with a compliant balloon, stented with a drug-eluting stent x 1, postdilated noncompliantballoon high-pressure. Completion angiography was performed. The sheath was removed with hemostasis obtained by D-Stat radial device at the end of the procedure without complication.[facility] Hospital for RehabilitationComment on above:Result Comment: Electronically Signed By: Marlon YE, Napoleon Mancini\.br\Date and Time Signed: 05/07/24 11:53 EDTInpatient Clinical Summaryon 75-70-7303Llgfnrfat Clinical SummaryInpatient Clinical Summary [place] [address] Clinical Summary Person Information: Name: MARIA EM Age: 63 Years : 1960 Sex: Female PCP: Brii March MD Marital Status: Race: White Ethnicity: Non- or Language: Uzbek Visit Id: Visit Reason: I94.39 I94.31 Speciality: Acuity: Enc Type: Ambulatory/Same Day Surgery Med Service: Cardiovascular Arrival: 04/23/2024 06:51:53 Discharge: Dispo Type: Address: [address] [place] [id number] Provider Notes: Diagnosis: Problems Active Changes in [...] every day. TAKE ONE TABLET BY MOUTH DAILY.Refills: 3. clopidogrel (clopidogrel 75 mg Tab) 1 [...] times a day. TAKE ONE TABLET BY MOUTHTWICE A DAY. Refills: 1. montelukast (montelukast 10 mg Tab) 1 Tablets By Mouth at bedtime. TAKE ONE TABLET BY MOUTH ONCE DAILY. Refills: 4. Care Team Members: Attending Physician: Napoleon Mason MD Consulting Physician: Referring Physician: Napoleon Mason MD Follow up: With: Address: When: [place] [address] [phone] [employer] () 05/07/2024 10:15 AM Type Location [facility] Cardiology Follow Up (FT) FT.Cardiology Clinic 05/07/2024 10:15 AM 05/07/2024 10:30 AM Confirmed Patient Education Information: CV - Cardiovascular PCI Discharge Instructions (CUSTOM) [facility]24 Inpatient Patient SummaryInpatient Patient Summary [address] [address] Patient Discharge Instructions PERSON INFORMATION Name: MARIA [...] None Follow up: With: Address: When: [place] [address] [phone] [employer] () 05/07/2024 10:15 AM In the event that this physician does not participate in your insurance network, please consult with your insurance company to find a nearby participating provider. Type Location [facility] Follow Up (FT) FT.Cardiology Clinic 05/07/2024 10:15 AM 05/07/2024 10:30 AM Confirmed Comment: MARIA ANTONIA Grace SHERRI L, have received the attached patient education materials/instructions and have verbalized understanding: Patient Signature Date Clinican/Nurse Signature Date HERE ARE THE MEDICATION CHANGES THAT OCCURRED DURING YOUR HOSPITAL STAY New Medications [facility] [address], [address] [facility] [facility] [place], [place] [id number], [phone] aspirin (aspirin 81 mg Oral EC Tab) [...] every day. TAKE ONE TABLET BY MOUTH DAILY.Refills: 3. Last Dose: Next Dose: clopidogrel (clopidogrel [...] times a day. TAKE ONE TABLET BY MOUTHTWICE A DAY. Refills: 1. Last Dose: Next [...] every day. TAKE ONE TABLET BY MOUTH DAILY.Refills: 3. clopidogrel (clopidogrel 75 mg Tab) 1 Tablets By Mouth every day. TAKE ONE TABLET BY MOUTH DAILY. Refills: 1. diltiazem (DilTIAZem (Eqv-Cardizem CD) 120 mg/24 hours oral capsule, extended release) TAKE ONE CAPSULE BY MOUTH ONCE DAILY. Refills: 3. fluticasone felecia (more content not included)...[facility] CHEMISTRYOrdered By: SYSTEM SYSTEM on 10-73-3047Xdxmv gap [Moles/Vol]14 mmol/L Normal6 - 16 mEq/LRemisol ChemCalcium [Mass/Vol]9.8 mg/dLNormal8.9 - 11.1 mg/dL Remisol ChemChloride [Moles/Vol]100 mmol/KObn916 - 111 mmol/LRemisol ChemCO2 [Moles/Vol]20 mmol/LLow21 - 31 mmol/LRemisol ChemCreatinine [Mass/Vol]0.6 mg/dL Normal0.5 - 1.3 mg/dLRemisol OcdwjANR89 mL/min/1.73 q2Hqasur>=59mL/min/1.73 m2 Remisol ChemGlucose [Mass/Vol]81 mg/fGYrtgxi06 - 199 mg/dLRemisol ChemPotassium [Moles/Vol]4.0 mmol/LNormal3.5 - 5.3 mmol/LRemisol ChemSodium [Moles/Vol]130 mmol/ZAxg579 - 145 mmol/LRemisol ChemUrea nitrogen [Mass/Vol]10 mg/dLNormal5 - 21 mg/dLRemisol ChemUrea nitrogen/Creatinine [Mass ratio]17 mg/hvRnrmls87 - 20 Remisol ChemHEMATOLOGYOrdered By: SYSTEM SYSTEM on 82-82-0389Crvmrdnod/100 WBC (Bld)0.5 %Normal0.0 - 2.0 %Remisol HemeBasophils/Leukocytes Auto (Bld) [Pure # fraction]0.0 E9/LNormal0.0 - 0.2 E9/LRemisol HemeEosinophils (Bld) [#/Vol]0.2 E9/LNormal0.0 - 0.5 E9/LRemisol HemeEosinophils/100 WBC (Bld)3.3 %Normal0.0 - 8.0 %Remisol HemeErythrocyte distribution width (RBC) [Ratio]18.5 %High10.9 - 14.2 %Remisol HemeHematocrit (Bld) [Volume fraction]30.9 %Low34.0 - 46.0 % Remisol HemeHemoglobin (Bld) [Mass/Vol]10.1 g/dLLow12.0 - 16.0 gm/dLRemisol Heme Lymphocytes (Bld) [#/Vol]1.5 E9/LNormal1.0 - 4.0 E9/LRemisol HemeLymphocytes/100 WBC (Bld)23.5 %Yndqdb87.0 - 50.0 %Remisol HemeMCH (RBC) [Entitic mass]26.8 pg Low27.0 - 34.0 pgRemisol HemeMCHC (RBC) [Mass/Vol]32.6 g/yAEypnjh71.4 - 36.0 gm/dLRemisol HemeMCV (RBC) [Entitic vol]82.2 hXWpndlo83.0 - 100.0 fLRemisol Heme Monocytes (Bld) [#/Vol]0.7 E9/LNormal0.2 - 1.0 E9/LRemisol HemeMonocytes/100 WBC (Bld)11.0 %Normal4.0 - 14.0 %Remisol HemeNeutrophils (Bld) [#/Vol]4.0 E9/L Normal2.0 - 7.5 E9/LRemisol HemeNeutrophils/100 WBC (Bld)61.7 %Rpcrjm85.0 - 75.0 %Remisol MnuuCxxxtmjh768.0 E9/JCjhnwu316.0 - 500.0 E9/LRemisol HemePlatelet mean volume (Bld) [Entitic vol]6.9 fLNormal6.4 - 10.8 fLRemisol HemeRBC (Bld) [#/Vol]3.8 E12/LLow4.3 - 5.9 E12/LRemisol HemeWBC corrected for nucl RBC Auto (Bld) [#/Vol]6.4 E9/LNormal4.0 - 11.0 E9/LRemisol HemeeGFRon 50-06-2754rIHG80 mL/min/1.73 i0Fqdhrs>=59Zanesville City HospitalComment on above:Order Comment: Order added by Discern Expert.Performed By: #### [id number] #### [facility] [address] [place], [place] [address]SX Myocardial Spect Rest/Stress 1 Dayon 29-90-2786HV Myocardial Spect Rest/Stress 1 DayExam Date/Time: 04/16/2024 11:03 EDT Reason for Exam: R94.31;Other (please specify) Report [facility] [address] [place] [address] Nuclear Stress Report Name: MARIA EM Study Date: 04/16/2024 09:03 AM Patient Location: [facility] : 1960 (M/d/yyyy) Gender: Female Age: 63 yrs Ethnicity: T Reason For Study: Other (please specify) Ordering Physician: Napoleon Mason Referring Physician: Napoleon Mason Protocol 19761 Pharmacologic Lexiscan stress with Isotope. Study Protocol: [...] Signed by: Napoleon Mason MD Transcribed by: [facility] Technologist: NjSc[facility] Hospitalradha [facility] Vascular Office/Clinic Noteon 27-60-4218Gdbjn and Vascular Office/Clinic Note Heart and Vascular Office/Clinic Note History of Present Illness Maria Em is a female patient who presents for a new patient evaluation for hypertension, peripheral arterial disease, and hyperlipidemia. The patient was formerly managed by Dr. Krishnamurthy and wishes to seek advice from a insurance claims analyst. She had undergone a stenting procedure around [...] for a follow-up visit with the physician occupational therapy assistant in 6 weeks. Portions of this record may have been created with voice recognition artificial intelligence software, specifically [employer], [employer] and or [employer]. Substitutions may have occurred due to the inherent limitations of voice recognition and artificial intelligence software. ATTESTATION: Documentation services were performed after patient or guardian consented to allow [employer] to record this visit. JODI presidential support specialist and provider reviewed before signing. JODI: [...] Tobacco Use:. Never Smokeless Tobacco Use:. Cigarettes, (more content not included)...[facility] Hospital for RehabilitationComment on above:Result Comment: Electronically Signed By: Marlon YE, Napoleon Mancini\.br\Date and Time Signed: 04/16/24 19:04 EDT\.br\Electronically Co-Signed By: Sara Edmonds.doug\Date and Time Co-Signed: 03/04/24 14:04 EDTAmbulatory Visit Summaryon 71-99-4007Dvpakyypsl Visit Summary MARIA EM :1960 Visit Date:03/24/2024 Ambulatory Visit Instructions Your Diagnosis Left foot pain BMI 20.0-20.9, adult Smoker Your Care Team Attending Physician - Saray Staley Primary Care Physician - Brii March [...] Appointments 2023 1:45 PM EDT With: Brady COOPER, Otto Lawson Where: FT Cardiology Clinic Medications What How [...] Mouth Every day TAKE ONE TABLET BY MOUTHDAILY Unchanged diltiazem (DilTIAZem (Eqv-Cardizem CD) 120 mg/ [...] Mouth Every day Left shoulder pain Left footpain Smoker BMI 20.0-20.9, adult Unchanged metoprolol (Lopressor 25 mg oral tablet) 1 Tablets By Mouth 2 times a day TAKE ONE TABLETBY MOUTH TWICE A DAY Unchanged montelukast (montelukast [...] you for choosing us for your care. [facility] Medicine Office/Clinic Noteon 46-36-9218[facility] Medicine Office/Clinic NoteHPI Staff Maria is a 63 year old [...] pain and is struggling to work. will sendreferral to Dr. Jackson. RTC 4 weeks Ordered: [facility] [place] Ambulatory Referral 2. Changes in skin texture (R23.4: Changes in skin texture) pt has area on right side of face that is raised, flaky and getting larger. will send to [facility] dermatology for further evaluation Ordered: [facility] [place] Ambulatory Referral [facility] Ambulatory Referral 3. Left shoulder pain (M25.512: Pain in left shoulder) pt states the meloxicam and medrol dose pack helped the shoulder pain. denies any complaints about her shoulder today. 4. BMI 20.0-20.9, adult (Z68.20: Body mass index [BMI] 20.0-20.9, adult) BMI education given Ordered: [facility] [place] Ambulatory Referral [facility] Ambulatory Referral 5. Smoker (F17.200: Nicotine dependence, unspecified, uncomplicated) consider not smoking Ordered: [facility] External Ambulatory Referral [facility] External Ambulatory Referral Follow-up No qualifying data [...] 05/31/2005 Recorded hepatitis B adult vaccine 04/29/2005 RecordedChildren[facility] for Rehabilitation Comment on above:Result Comment: Electronically Signed By: Saray Staley\Date and Time Signed: 03/24/24 11:42 EDTCardiovascular Reporton 03-11-2024 Cardiovascular [id number]#1.00TIFFNormal [facility] HospitalInsurance Correspondenceon 07-01-5073Cechlyzpl [id number]#1.00[facility] City HospitalConsent for Treatmenton 10-86-3660Orpibgt for Treatment [id number]#1.00[facility] City HospitalPhysician Orderon 01-64-0781Halntplmg Order [id number]#1.00[facility] City HospitalAmbulatory Visit Summaryon 05-29-6082Njthxjrdmp Visit Summary MARIA EM :1960 Visit Date:03/03/2024 Ambulatory Visit Instructions Your Diagnosis BMI 20.0-20.9, adult Smoker Your Care Team Attending Physician - Saray Staley Primary Care Physician - Brii March [...] Cardiology Clinic Friday 11:20 AM EDT With: Saray Staley Where[facility] Office/Clinic Noteon 40-47-0171Etagmb Medicine Office/Clinic NoteHPI Staff Maria is a 63 year old female presenting for pain Pain characteristics: Onset: 1 month Pain location: left shoulder Intensity:5/10 Medication used: advil, bengay, Tylenol no injury, constant aching pain, has full ROM no increasing pain with movement. Does have hard timehold phone up to ear with left arm. [...] normal good ROM of left shoulder. left steam box tender to touch laterally near little toe Assessment/Plan 1. Left shoulder pain (M25.512: Pain in left shoulder) left shoulder pain shoots down arm. good range of motion of left shoulder. will order medtol dose pack and meloxicam. if no improvement will order x ray. RTC 3 weeks Ordered: meloxicam, 15 mg = 1 tab(s), Oral, Daily, # 30 tab(s), Refills(s) 0, Pharmacy: [facility], 167, cm, 03/03/24 15:07:00 EDT, Height/Length [...] Risk, 12/24/2022 Current, Beer, 1-2 times per wee (more content not included)...[facility] Hospital for RehabilitationComment on above:Result Comment: Electronically Signed By: Saray Staley\.br\Date and Time Signed: 03/03/24 15:35 EDTSEGMENTAL BLOOD PRESSUREon 82-32[place] [address] Cardiology Report Signed Patient: MARIA EM MR#: [id number] : 1960 Acct:[id number] Age/Sex: 63 / F ADM Date: 03/03/24 Loc: CARD Attending Dr: Sinan Murguia M.D. Ordering Physician: Sinan Murguia M.D. Date of Service: 03/03/24 Procedure(s): CA segmental UE or LE RADHA Accession Number(s): [id number] cc: Sinan Murguia M.D.; SARAY PARIS [facility] Test Date: 2024-03-03 Pat Name: MARIA EM Department: Room: - Gender: Female Electrical Troubleshooter: Gardenia Wynn : 1960 Requested By: 1894 Order Number: [id number] Reading MD: RALPH BLOOM Interpretive Statements Monophasic doppler waveforms of the LLE. PVR waveforms with delayed upstroke, blunted amplitude and loss of dicrotic notch in the LLE. Right: - no significant pressure gradient between cuffs - normal SIMRAN Left: - significant pressure gradient between the thigh and calf cuff - significant pressure gradient between the calf and DP cuff - abnormal SIMRAN and TBI Impression: - normal arterial evaluation of the right lower extremity, without hemodynamic impairment of the right lower extremity at rest. 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 (left SIMRAN 0.58) Electronically Signed On 03-03-2024 22:22:10 EDT by RALPH BLOOM Dictated By: Ralph Bloom D.O. Signed By: 03/03/24222103/03/242221 DD/ 26 TD/TT: Technology Auditor:TBHRadiology, Radiologist, - 03/03/2024 [place] [address] Cardiology Report Signed Patient: MARIA EM MR#: [id number] : 1960 Acct:[id number] Age/Sex: 63 / F ADM Date: 03/03/24 Loc: CARD Attending Dr: Sinan Murguia M.D. Ordering Physician: Sinan Murguia M.D. Date of Service: 03/03/24 Procedure(s): CA segmental UE or LE RADHA Accession Number(s): [id number] cc: Sinan Murguia M.D.; SARAY PARIS [facility] Test Date: 2024-03-03 Pat Name: MARIA EM Department: Room: - Gender: Female Electrical Troubleshooter: Gardenia Wynn : 1960 Requested By: 1892 Order Number: [id number] Reading MD: RALPH BLOOM Interpretive Statements Monophasic doppler waveforms of the LLE. PVR waveforms with delayed upstroke, blunted amplitude and loss of dicrotic notch in the LLE. Right: - no significant pressure gradient between cuffs - normal SIMRAN Left: - significant pressure gradient between the thigh and calf cuff - significant pressure gradient between the calf and DP cuff - abnormal SIMRAN and TBI Impression: - normal arterial evaluation of the right lower extremity, without hemodynamic impairment of the right lower extremity at rest. 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 (left SIMRAN 0.58) Electronically Signed On 03-03-2024 22:22:10 EDT by RALPH BLOOM Dictated By: Ralph Bloom D.O. Signed By: 03/03/24222103/03/242221 DD/ 142 TD/TT: Technology Auditor: RICKY HealthcareRadiology Study observation (narrative)NOMS HealthcareSEGMENTAL BLOOD PRESSUREOrdered By: Radiologist Radiology on 20-54-3196[facility] Work Phone: cHEMISTRYOrdered By: SYSTEM SYSTEM on 21-59-0172Fmezt gap [Moles/Vol]11 mmol/LNormal6 - 16 mEq/LRemisol ChemCalcium [Mass/Vol]9.7 mg/dLNormal8.9 - 11.1 mg/dLRemisol ChemChloride [Moles/Vol]100 mmol/LAes617 - 111 mmol/LRemisol ChemCO2 [Moles/Vol]24 mmol/RXfqzln55 - 31 mmol/LRemisol Chem Creatinine [Mass/Vol]0.5 mg/dLNormal0.5 - 1.3 mg/dLRemisol RcckcILN990 mL/min/1.73 f4Pbhubr>=59mL/min/1.73 e1Kxbxtdc ChemGlucose [Mass/Vol]78 mg/dL Grhbxj63 - 199 mg/dLRemisol ChemPotassium [Moles/Vol]4.2 mmol/LNormal3.5 - 5.3 mmol/LRemisol ChemSodium [Moles/Vol]131 mmol/CQaq505 - 145 mmol/LRemisol Chem Urea nitrogen [Mass/Vol]11 mg/dLNormal5 - 21 mg/dLRemisol ChemUrea nitrogen/Creatinine [Mass ratio]22 mg/dfYzgt76 - 20Remisol ChemHEMATOLOGYOrdered By: SYSTEM SYSTEM on 31-62-7263Vkamfeyku/100 WBC (Bld)0.8 %Normal0.0 - 2.0 % Remisol HemeBasophils/Leukocytes Auto (Bld) [Pure # fraction]0.0 E9/LNormal0.0 - 0.2 E9/LRemisol HemeEosinophils (Bld) [#/Vol]0.4 E9/LNormal0.0 - 0.5 E9/LRemisol HemeEosinophils/100 WBC (Bld)7.4 %Normal0.0 - 8.0 %Remisol HemeErythrocyte distribution width (RBC) [Ratio]16.5 %High10.9 - 14.2 %Remisol HemeHematocrit (Bld) [Volume fraction]34.4 %Oiiskm79.0 - 46.0 %Remisol HemeHemoglobin (Bld) [Mass/Vol]11.0 g/dLLow12.0 - 16.0 gm/dLRemisol HemeLymphocytes (Bld) [#/Vol]1.8 E9/LNormal1.0 - 4.0 E9/LRemisol HemeLymphocytes/100 WBC (Bld)31.6 %Cvudef46.0 - 50.0 %Remisol HemeMCH (RBC) [Entitic mass]27.2 osAzcjhr06.0 - 34.0 pgRemisol HemeMCHC (RBC) [Mass/Vol]32.0 g/qUIujkoz28.4 - 36.0 gm/dLRemisol HemeMCV (RBC) [Entitic vol]85.0 qISyxbgf58.0 - 100.0 fLRemisol HemeMonocytes (Bld) [#/Vol]0.7 E9/LNormal0.2 - 1.0 E9/LRemisol HemeMonocytes/100 WBC (Bld)13.2 %Normal4.0 - 14.0 %Remisol HemeNeutrophils (Bld) [#/Vol]2.7 E9/LNormal2.0 - 7.5 E9/LRemisol HemeNeutrophils/100 WBC (Bld)47.0 %Uhvlzx10.0 - 75.0 %Remisol GbvlYwieexkb597.0 E9/XYnrdqb743.0 - 500.0 E9/LRemisol HemePlatelet mean volume (Bld) [Entitic vol] 7.4 fLNormal6.4 - 10.8 fLRemisol HemeRBC (Bld) [#/Vol]4.1 E12/LLow4.3 - 5.9 E12/LRemisol HemeWBC corrected for nucl RBC Auto (Bld) [#/Vol]5.7 E9/LNormal4.0 - 11.0 E9/LRemisol HemeCHEMISTRYOrdered By: SYSTEM SYSTEM on [id number] [Mass/Vol]4.4 g/dLNormal3.3 - 5.0 gm/dLFTMC RemisolAlbumin/Globulin [Mass ratio] 1.5 {ratio}Normal1.1 - 2.2[facility] RemisolALP [Catalytic activity/Vol]60 [iU]/d Jwwpvo33 - 98 Int._Unit/LFTMC RemisolALT No additional P-5'-P [Catalytic activity/Vol]20 [iU]/dNormal6 - 46 Int._Unit/LFTMC RemisolAnion gap [Moles/Vol] 12 mmol/LNormal6 - 16 mEq/LFTMC RemisolAST [Catalytic activity/Vol]31 [iU]/d Normal5 - 43 Int._Unit/LFTMC RemisolBilirubin [Mass/Vol]0.2 mg/dLNormal0.0 - 1.1 mg/dLFTMC RemisolCalcium [Mass/Vol]9.3 mg/dLNormal8.9 - 11.1 mg/dLFTMC Remisol Chloride [Moles/Vol]102 mmol/JIviues405 - 111 mmol/LFTMC RemisolCholesterol [Mass/Vol]174 mg/cBPimmzd417 - 200 mg/dLFTMC RemisolCholesterol in HDL [Mass/Vol]78 mg/dLInvalid Interpretation CodeFTMC RemisolCholesterol in LDL [Mass/Vol]73 mg/dLNormal<=129mg/dLFTMC RemisolCholesterol in VLDL [Mass/Vol]30 mg/dLNormal7 - 40 mg/dLFTMC RemisolCO2 [Moles/Vol]23 mmol/DYlhbit96 - 31 mmol/L [facility] RemisolCreatinine [Mass/Vol]0.5 mg/dLNormal0.5 - 1.3 mg/dLFTMC Remisol GFR/1.73 sq M.predicted among blacks MDRD (S/P/Bld) [Vol rate/Area]mL/min/1.73 i8Egwqsl>=59mL/min/1.73 m2FT Chem SGFR/1.73 sq M.predicted among non-blacks MDRD (S/P/Bld) [Vol rate/Area]mL/min/1.73 v7Jyaftx>=59mL/min/1.73 m2FT Chem S Globulin (S) [Mass/Vol]2.9 g/dLNormal1.4 - 4.0 gm/dLFTMC RemisolGlucose [Mass/Vol]104 mg/qWQkdxkf25 - 199 mg/dLFTMC RemisolPotassium [Moles/Vol]4.5 mmol/LNormal3.5 - 5.3 mmol/LFTMC RemisolProtein [Mass/Vol]7.3 g/dLNormal6.0 - 7.8 gm/dLFTMC RemisolSodium [Moles/Vol]132 mmol/QIpx684 - 145 mmol/LFTMC Remisol Triglyceride [Mass/Vol]149 mg/dLNormal<=149mg/dLFTMC RemisolTSH Qn2.60 m[IU]/L Normal0.34 - 5.60 mcIU/mLFTMC RemisolUrea nitrogen [Mass/Vol]11 mg/dLNormal5 - 21 mg/dLFTMC RemisolUrea nitrogen/Creatinine [Mass ratio]22 mg/tiFqss32 - 20[facility] RemisolCOAGULATIONOrdered By: Kemi Hough on 81-17-9929Zzvwgj D-dimer FEU (PPP) [Mass/Vol]804 ng/mL FEUInvalid Interpretation Mpqv817 - 500 ng/mL FEUFTMC Auto CoagComment on above:Result Comment: Results Verified By Repeat Analysis Results Called To Saray Paris HYDROLOGIC MODELER By dc And Read Back For Confirmation On 12/25/2022 18:19:18 EDT.HEMATOLOGYOrdered By: Marian Cage on 12-25-2022 Acanthocytes LM Ql (Bld)Present (12/25/22 8:41 AM)NormalFTMC HemeManSSAnisocytosis Ql (Bld)Present (12/25/22 8:41 AM)NormalFTMC HemeManSSErythrocyte distribution width (RBC) [Ratio]23.1 %High10.9 - 14.2 %[facility] HemeAutoSSHematocrit (Bld) [Volume fraction] 32.0 %Low34.0 - 46.0 %[facility] HemeAutoSSHemoglobin (Bld) [Mass/Vol]9.5 g/dLLow12.0 - 16.0 gm/dLFTMC HemeAutoSSHypochromia Auto Ql (Bld)Present (12/25/22 8:41 AM)NormalFTMC HemeManSSMCH (RBC) [Entitic mass]22.5 pgLow27.0 - 34.0 pgFTMC HemeAutoSSMCHC (RBC) [Mass/Vol]29.7 g/dLLow31.4 - 36.0 gm/dLFTMC HemeAutoSSMCV (RBC) [Entitic vol]75.8 fLLow80.0 - 100.0 fLFTMC HemeAutoSS Microcytes Ql (Bld)Present (12/25/22 8:41 AM)NormalFTMC HemeManSSMorphology Jae (Bld) [Interp]See Morphology (12/25/22 8:41 AM)NormalFTMC HemeManSSOvalocytes LM Ql (Bld)Present (12/25/22 8:41 AM)NormalFTMC HemeManSSPlatelet mean volume (Bld) [Entitic vol]7.9 fLNormal6.4 - 10.8 fLFTMC HemeAutoSSPlatelets (Bld) [#/Vol]305.0 E9/RFqyady672.0 - 500.0 E9/LFTMC HemeAutoSSPoikilocytosis Auto Ql (Bld)Present (12/25/22 8:41 AM)NormalFTMC HemeManSSRBC (Bld) [#/Vol]4.2 E12/LLow4.3 - 5.9 E12/LFTMC HemeAutoSSWBC corrected for nucl RBC Auto (Bld) [#/Vol]7.4 E9/LNormal 4.0 - 11.0 E9/LFTMC HemeAutoSSHEMATOLOGYOrdered By: SYSTEM SYSTEM on 12-25-2022 Basophils/100 WBC (Bld)0.9 %Normal0.0 - 2.0 %[facility] HemeAutoSSBasophils/Leukocytes Auto (Bld) [Pure # fraction]0.1 E9/LNormal0.0 - 0.2 E9/LFTMC HemeAutoSS Eosinophils/100 WBC (Bld)12.6 %High0.0 - 8.0 %[facility] HemeAutoSS Eosinophils/Leukocytes Auto (Bld) [Pure # fraction]0.9 E9/LHigh0.0 - 0.5 E9/L [facility] HemeAutoSSLymphocytes/100 WBC (Bld)16.5 %Bqillz14.0 - 50.0 %[facility] HemeAutoSS Lymphocytes/Leukocytes Auto (Bld) [Pure # fraction]1.2 E9/LNormal1.0 - 4.0 E9/L [facility] HemeAutoSSMonocytes/100 WBC (Bld)9.0 %Normal4.0 - 14.0 %[facility] HemeAutoSS Monocytes/Leukocytes Auto (Bld) [Pure # fraction]0.7 E9/LNormal0.2 - 1.0 E9/L [facility] HemeAutoSSNeutrophils/100 WBC (Bld)61.0 %Jcooeu27.0 - 75.0 %[facility] HemeAutoSS Neutrophils/Leukocytes Auto (Bld) [Pure # fraction]4.5 E9/LNormal2.0 - 7.5 E9/L [facility] HemeAutoSSUS LORENE DOP LEG LTon [id number] LORENE DOP LEG LTEXAMINATION: US LORENE DOP LEG LT HISTORY: Anesthesia of skin ; left calf pain COMPARISON: No relevant comparison available. FINDINGS: REGION: Left lower extremity THROMBI: None. COMPRESSIBILITY: Normal compressibility. FLOW: Normal waveform and antegrade flow between 5 and 20 cm/s. OTHER: None. IMPRESSION: 1. No deep vein thrombus within the left lower extremity. Electronically authenticated by: ROSEMARY RODRIGUEZ Date: 2022-12-24 10:[address] [place] [address] SINUSES WO CONon [id number] SINUSES WO CONEXAMINATION: CT SINUSES WO CON HISTORY: Polyp of nasal cavity and/or nasal sinus COMPARISON: None. TECHNIQUE: Multi slice thin computed tomograms of the paranasal sinuses were obtained, with sagittal and coronal reconstructions. Dose reduction techniques were achieved by using automated exposure control and/or adjustment of mA and/or kV according to patient size and/or use of iterative reconstruction technique. FINDINGS: The paranasal sinuses are well-developed. Significant mucosal thickening is seen in the axillary sinuses, more prominent on the left. The ostiomeatal complex on either side is occluded with soft tissues. Similar mucosal thickening is seen throughout the sphenoid sinus with a prominent mucocele or cyst posteriorly. Mucosal thickening seen diffusely throughout the ethmoid and frontal sinuses, with several of the ethmoid air cells completely opacified and the there is complete opacification of the left side of the frontal sinuses. The orbital rims and contents are intact. The hood surrounding the sinuses are clear. There is prominent mucosal thickening of the medial turbinates, and there is partial occlusion of the nasal passages anteriorly. The middle ears are well aerated. The visualized mastoid sinuses are clear. IMPRESSION: Chronic mucosal changes are seen throughout the paranasal sinuses. Some of the ethmoid air cells are completely opacified indicating an acute component. The osseous structures appear intact. Significant mucosal thickening is seen about the middle turbinates. There is no significant deviation of the nasal septum. There is narrowing of the nasal passages with occlusion noted at multiple levels. Direct comparison with a previous study would be helpful in determining the chronicity of these findings. Electronically authenticated by: MARIANO MUELLER Date: 2022-08-27 20:32[facility] S[facility]IEWS OR GREATERon [id number] SINUSES 3 VIEWS OR GREATEREXAMINATION: XR SINUSES 3 VIEWS OR GREATER HISTORY: Acute maxillary sinusitis ; Raynaud's, headaches, stuffy nose COMPARISON: No relevant comparison available. FINDINGS: MAXILLARY: Mild right, marked left mucosal thickening. ETHMOID: Slight increased opacity. FRONTAL: Increased opacity. SPHENOID: Increased opacity. OTHER: Negative. IMPRESSION: 1. Suspect chronic pansinusitis. 2. No appreciable fluid levels to suggest acute sinusitis. Electronically authenticated by: ROESMARY RODRIGUEZ Date: 2022-07-08 16:41[facility] MANUAL DIFFon [id number] LYMPH #NormalThe [facility] ClinicComment on above:Performed By: #### CBCMAN #### [facility] [address] [place] [address] Dr. Shira LuATYPICAL LYMPH %NormalThe [facility]opathic ClinicComment on above: Performed By: #### CBCMAN #### [facility] [address] [place] [address] Dr. Shira Jones #Normal0.0-0.3The [facility] ClinicComment on above: Performed By: #### CBCMAN #### [facility] [address] [address] [address] Shira Jones %Normal0-5The [facility] ClinicComment on above:Performed By: #### CBCMAN #### [facility] [address] [place] [address] Dr. Shira Garcia #0.00 103/ulNormal0.00-0.10The [facility] ClinicComment on above:Performed By: #### CBCDEEPALI #### [facility] [address] [address] [address] Shira Garcia %0.0 %Critically low0.2-2.0The [facility] ClinicComment on above:Performed By: #### CBCDEEPALI #### [facility] [address] [place] [address] Dr. Shira Shetty #NormalThe [facility] ClinicComment on above:Performed By: #### CBCDEEPALI #### [facility] [address] [place] [address] Dr. Shira Shetty %NormalThe [facility] ClinicComment on above:Performed By: #### DORITA #### [facility] [address] [place] [address] Dr. Shira LuCORRECTED WBCNormal4.0-11.0The [facility] ClinicComment on above: Performed By: #### DORITA #### [facility] [address] [place] [address] Dr. Shira Webb #0.09 103/ulNormal0.00-0.70The [facility] ClinicComment on above:Performed By: #### DORITA #### [facility] [address] [place] [address] Dr. Shira Webb%1.0 %Normal0.9-7.0The [facility] ClinicComment on above: Performed By: #### DORITA #### [facility] [address] [place] [address] Dr. Shira LuHCT41.0 %Nwpcig87.0-48.0The [facility] ClinicComment on above: Performed By: #### CBCDEEPALI #### [facility] [address] [place] [address] Dr. Shira LuHGB13.8 g/anXojbyd45.0-16.0The [facility] ClinicComment on above: Performed By: #### CBCDEEPALI #### [facility] [address] [place] [address] Dr. Shira Amor #0.93 103/ulCritically low1.20-3.80The [facility] Comment on above:Performed By: #### DORITA #### [facility] [address] [place] [address] Dr. Shira Amor%10.0 %Critically low20.5-60.0The [facility] ClinicComment on above:Performed By: #### CBCDEEPALI #### [facility] [address] [place] [address] Dr. Shira MartinezH31.4 zpGncjzw28.7-34.0The [facility] ClinicComment on above: Performed By: #### DORITA #### [facility] [address] [place] [address] Dr. Shira MartinezHC33.7 g/tvKuflhc05.9-35.2The [facility] ClinicComment on above:Performed By: #### DORITA #### [facility] [address] [place] [address] Dr. Shira MartinezV93.2 fHEwwods39.0-99.0The [facility] ClinicComment on above: Performed By: #### DORITA #### [facility] [address] [place] [address] Dr. Shira GalindoOCYTE #NormalThe [facility] ClinicComment on above: Performed By: #### DORITA #### [facility] [address] [place] [address] Dr. Shira GalindoOCYTE %NormalThe [facility] ClinicComment on above: Performed By: #### CBCDEEPALI #### [facility] [address] [place] [address] Dr. Shira Caraballo#0.19 103/ulCritically low0.30-0.80The [facility] Comment on above:Performed By: #### CBCDEEPALI #### [facility] [address] [place] [address] Dr. Shira Caraballo%2.0 %Normal1.7-12.0The [facility] ClinicComment on above: Performed By: #### CBCDEEPALI #### [facility] [address] [address] [address] Shira LuMPV9.0 fLCritically low9.5-13.5The [facility] ClinicComment on above:Performed By: #### CBCDEEPALI #### [facility] [address] [address] [address] Shira LevyOCYTE #NormalLake County Memorial Hospital - West HospitalComment on above:Performed By: #### CBCDEEPALI #### [facility] [address] [address] [address] Shira Larose %NormalWvumedicine Harrison Community HospitalComment on above:Performed By: #### DORITA #### [facility] [address] [address] [address] LuNRBCNormalThWilson [address] HospitalComment on above:Performed By: #### DORITA #### [facility] [address] [place] [address] Dr. Shira LuPLT279 103/rwLfgbbt426-146Cqi [facility] ClinicComment on above: Performed By: #### DORITA #### [facility] [address] [place] [address] Dr. Shira LuRBC4.40 106/ulNormal4.20-5.40The [facility] ClinicComment on above:Performed By: #### DORITA #### [facility] [address] [place] [address] Dr. Shira LuRDW13.2 %Nqdkcx71.0-15.0The [facility] ClinicComment on above: Performed By: #### CBCDEEPALI #### [facility] [address] [place] [address] Dr. Shira Burnham #8.09 103/ulCritically high1.40-6.50The [facility] on above:Performed By: #### DORITA #### [facility] [address] [place] [address] Dr. Shira Burnham %87.0 %Critically high43.0-75.0The [facility] ClinicComment on above:Performed By: #### CBCMAN #### [facility] [address] [address] [address] Shira LuWBC9.3 103/ulNormal4.0-11.0The [facility] ClinicComment on above: Performed By: #### CBCMAN #### [facility] [address] [address] [address] Shira LuPROF CHEM 8 (BAS METB)on 84-53-0172Tzwtt gap [Moles/Vol]17.8 mmol/LNormalThe [facility] ClinicComment on above:Performed By: #### BMP #### [facility] [address] [address] [address] Shira LuCalcium [Mass/Vol]9.5 mg/dLNormal8.5-10.1The [facility] Comment on above:Performed By: #### BMP #### [facility] [address] [address] [address] Shira LuChloride [Moles/Vol]97 mmol/LCritically kkr66-622Tmi [facility] ClinicComment on above:Performed By: #### BMP #### [facility] [address] [address] [address] Shira LuCO2 [Moles/Vol]21.1 mmol/KMnwgpv95.0-32.0The [facility] Comment on above:Performed By: #### BMP #### [facility] [address] [address] [address] Shira LuCreatinine [Mass/Vol]0.57 mg/dLNormal0.55-1.02The [facility] ClinicComment on above:Performed By: #### BMP #### [facility] [address] [address] [address] Shira SharmaGFR-AF GUAMANIAN>60Normal>=60The [facility] ClinicComment on above:Performed By: #### BMP #### [facility] [address] [address] [address] Shira SharmaGFR-NON AF GUAMANIAN>60Normal>=60The [facility] ClinicComment on above:Performed By: #### BMP #### [facility] [address] [address] [address] Shira LuGlucose [Mass/Vol]118 mg/dLCritically froh47-472Ijv [facility] ClinicComment on above:Performed By: #### BMP #### [facility] [address] [address] [address] Shira LuPotassium [Moles/Vol]3.9 mmol/LNormal3.5-5.1The [facility] Comment on above:Performed By: #### BMP #### [facility] [address] [address] [address] Shira LuSodium [Moles/Vol]132 mmol/LCritically osy857-969Ils [facility] ClinicComment on above:Performed By: #### BMP #### [facility] [address] [address] [address] Shira LuUrea nitrogen [Mass/Vol]8.0 mg/dLNormal7.0-18.0The [facility] ClinicComment on above:Performed By: #### BMP #### [facility] [address] [address] [address] Shira LuUrea nitrogen/Creatinine [Mass ratio]14.0 mg/mgNormalThe [facility] ClinicComment on above:Performed By: #### BMP #### [facility] [address] [address] [address] Shira Lu Vital Signs Date TimeVital SignValuePerforming FmqhlsdpjNdehjcga12-43-5673 14:06-0400 Diastolic blood ozxfqrhm11 mm[Hg]Raza Morel [facility]05-12-2025 14:06-0400Heart rate69 /minRaaura Morel [facility]05-12-2025 14:06-0400Mean blood dlvivesh429 mm[Hg]Raza Morel [facility]05-12-2025 14:06-0400 Systolic blood bnmyycno376 mm[Hg]Raza Maria Teresa [address] [place], [place] 4126005-12-2025 13:59-0400Blood Pressure LocationRakesh Maria Teresa [address] [place], [place] 4126005-12-2025 13:59-0400 Diastolic blood mm[Hg]Raza Maria Teresa [address] [place], [place] 4126005-12-2025 13:59-0400Heart rate68 /minRakesh Maria Teresa [address] [place], [place] 4126005-12-2025 13:59-0400 Respiratory rate17 /minRakesh Maria Teresa [address] [place], [place] 4126005-12-2025 13:59-8644RsK2% (BldA) [Mass fraction]99 %Raza Maria Teresa [address] [place], [place] 4126005-12-2025 13:59-0400 Systolic blood cekfaswk253 mm[Hg]Raza Maria Teresa [address] [place], [place] 4126011-08-2024 15:09-0500 Diastolic blood qvorxefr62 mm[Hg]Gaetano Kirnus [address] [place], [place] 4126011-08-2024 15:09-0500Heart rate77 /minMikhail Kirnus [address] [place], [place] 4126011-08-2024 15:09-0500 Respiratory rate16 /minMikhail Kirnus [address] [place], [place] 4126011-08-2024 15:09-8651KbC7% (BldA) [Mass fraction]96 %Gaetano Kirnus [address] [place], [place] 4126011-08-2024 15:09-0500 Systolic blood fcnoguht716 mm[Hg]Gaetano Kirnus [address] [place], [place] 4126009-03-2024 15:44-0400Body tokydt687.6 cmPaul Biedenrajiv DO Work Phone: [facility] [id number] 15:44-0400Body mass index (BMI) [Ratio]19.37 kg/m2Paul Biedenbach DO Work Phone: [facility] [id number] 15:44-0400Body .43 kgPaul Biedenbach DO Work Phone: [facility] [id number] 12:20-0400Body temperature 97.7 [degF]Jani Nguyen [facility]08-28-2024 12:20-0400 Diastolic blood dyynqkwe71 mm[Hg]Jani Nguyen [facility]08-28-2024 12:20-0400Heart rate60 /minExcela Frick Hospitalkevintiffanie [facility]08-28-2024 12:20-0400Mean blood iwzblhud01 mm[Hg]Jani Nguyen [facility]08-28-2024 12:20-0400 Respiratory rate15 /minPaul Bieloy [facility]08-28-2024 12:20-4071LqN3% (BldA) [Mass fraction]99 %Jani Nguyen [facility]08-28-2024 12:20-0400 Systolic blood mm[Hg]Jani Nguyen [facility]08-28-2024 11:26-0400Blood Pressure LocationPaul Wendy [facility]08-28-2024 11:26-0400 Diastolic blood acdzqzue29 mm[Hg]Jani Nguyen [facility]08-28-2024 11:26-0400Heart rate67 /minPaul Biedenrajiv [facility]08-28-2024 11:26-4598SyV0% (BldA) [Mass fraction]99 %Jani Nguyen [facility]08-28-2024 11:26-0400 Systolic blood yazeomnw873 mm[Hg]Jani Nguyen [address] [place], [place] 6836408-28-2024 09:59-0400Blood Pressure LocationPaul Wendy [address] [place], [place] 6836408-28-2024 09:59-0400 Diastolic blood vvwaxnyi10 mm[Hg]Jani Nguyen [address] [place], [place] 6836408-28-2024 09:59-0400Heart rate65 /minPaul Biedtiffanie [facility]08-28-2024 09:59-0400Mean blood cchuliuc60 mm[Hg]Jani Nguyen [facility]08-28-2024 09:59-0400 Systolic blood mm[Hg]Jani Nguyen [facility]08-28-2024 09:58-4230DqT6% (BldA) [Mass fraction]98 %Jani Nguyen [facility]08-28-2024 09:57-0400 Respiratory rate16 /minPaul Biedtiffanie [facility]08-28-2024 09:57-0400Body vanwjjdsleb06.52 [degF]Jani Nguyen [facility]08-28-2024 09:57-0400Blood Pressure LocationPaisaac Nguyen [facility]08-28-2024 09:57-0400Mean blood mm[Hg]Jani Nguyen [facility]08-20-2024 15:41-0400Body .6 cmPaul Wendy DO Work Phone: [facility] [id number] 15:41-0400Body mass index (BMI) [Ratio]19.37 kg/m2Pa Wendy DO Work Phone: [facility] [id number] 15:41-0400Body .43 kgPa Wendy DO Work Phone: [facility] [id number] 10:18-0400Blood Pressure LocationOtto Abreu [facility]08-09-2024 10:18-0400 Diastolic blood aqafwwnz65 mm[Hg]Otto Abreu [facility]08-09-2024 10:18-0400Heart rate67 /minThomas Abreu [facility]08-09-2024 10:18-0400 Respiratory rate16 /minThomas Abreu [facility]08-09-2024 10:18-6112KnL1% (BldA) [Mass fraction]96 %Otto Abreu [facility]08-09-2024 10:18-0400 Systolic blood loekzjsa144 mm[Hg]Otto Abreu [facility]07-26-2024 07:04-0400Blood Pressure LocationNapoleon Mason [facility]07-26-2024 07:04-0400 Diastolic blood rrivdwxd10 mm[Hg]Napoleon Mason [facility]07-26-2024 07:04-0400Heart rate82 /minRyan Christmariaa [address] [place], [place] [address]07-26-2024 07:04-0400 Respiratory rate18 /minRyan Christofferson [address]07-26-2024 07:04-7740OjV3% (BldA) [Mass fraction]100 %Napoleon Mason [address] [place], [place] [address]07-26-2024 07:04-0400 Systolic blood iydurzts220 mm[Hg]Napoleon Frankofferson [address]06-06-2024 13:11-0400 Diastolic blood gbrzucma88 mm[Hg]Napoleon Trejoerson [address]06-06-2024 13:11-0400Heart rate70 /minRyan Christoffomer [address] [place], [place] [address]0106-06-2024 13:11-2461OpQ5% (BldA) [Mass fraction]98 %Napoleon Marlon [address] [place], [place] 7870106-06-2024 13:11-0400 Systolic blood mm[Hg]Napoleon Marlon [address] [place], [place] 4126004-01-2024 22:55-0400 Hourly RoundingAlexander David [address] [place], [place] [address]Comment on above:Result Comment: send the patient down with [id number] 22:15-0400Hourly RoundingAlexander David [address] [place], [place] 0245304-01-2024 22:15-0400 Promise to ReturnAlexander David [address] [place], [place] 0245304-01-2024 22:00-0400 Hourly RoundingAlexander David [address] [place], [place] [address]Comment on above:Result Comment: able to tolerate to walk from bed, to CR then to the [id number] 21:00-0400Promise to ReturnMichael Hernandez [address] [place], [place] 0245304-01-2024 20:05-0400Heart rate80 /minMichael Hernandez [address] [place], [place] 0245304-01-2024 20:05-0888ApF5% (BldA) [Mass fraction]99 %Michael Hernandez [address] [place], [place] 6602604-01-2024 20:04-0400 Diastolic blood youyvbzc02 mm[Hg]Michael Hernandez [address] [place], [place] 6602604-01-2024 20:04-0400Mean blood mnalsuqz52 mm[Hg]Michael Hernandez [address] [place], [place] 0245304-01-2024 20:04-0400 Systolic blood phkxfucu038 mm[Hg]Michael Hernandez [address] [place], [place] 0245304-01-2024 20:02-0400Body reufpmxaeyr55.88 [degF]Michael Hernandez [address] [place], [place] 0245304-01-2024 20:00-0400 Promise to ReturnMichael Hernandez [address] [place], [place] 0245304-01-2024 19:50-0400 Respiratory rate18 /minMichael Hernandez [address] [place], [place] 0245303-11-2024 09:22-0400Blood Pressure LocationMosuresh Murguia [facility]03-11-2024 09:22-0400 Diastolic blood ucoiiejd39 mm[Hg]Sinan Murguia [address]03-11-2024 09:22-0400Heart rate64 /minMohamed Blade [address] [place], [place] 4126003-11-2024 09:22-4723RyS9% (BldA) [Mass fraction]98 %Sinan Hsuan [address]03-11-2024 09:22-0400 Systolic blood kuzxrtrd226 mm[Hg]Beatrizjess Blade [address] [place], [place] 4126006-01-2023 15:15-0400 Diastolic blood mm[Hg]Sinan Blade [address] [place], [place] 4126006-01-2023 15:15-0400Mean blood jcgtxigh386 mm[Hg]Sinan Blade [address] [place], [place] 4126006-01-2023 15:15-0400 Systolic blood xqsasdpp214 mm[Hg]Beatrizjess Blade [address] [place], [place] 4126006-01-2023 15:03-0400Blood Pressure LocationMohamed Blade [address] [place], [place] 4126006-01-2023 15:03-0400 Diastolic blood eqptrmew34 mm[Hg]Sinan Hsuan [address] [place], [place] 4126006-01-2023 15:03-0400Heart rate76 /minMohamed Blade [address] [place], [place] 4126006-01-2023 15:03-9327JrH6% (BldA) [Mass fraction]98 %Sinan Blade [address] [place], [place] 4126006-01-2023 15:03-0400 Systolic blood edebeoix360 mm[Hg]Beatrizjess Blade [address] [place], [place] 4126005-01-2023 09:10-0400Blood Pressure LocationMohamed Blade [address] [place], [place] 4126005-01-2023 09:10-0400 Diastolic blood tnlrcgvo87 mm[Hg]Sinan Murguia [facility]05-01-2023 09:10-0400Heart rate64 /minMosuresh Murguia [facility]05-01-2023 09:10-4473JeG3% (BldA) [Mass fraction]100 %Sinan Murguia [facility]05-01-2023 09:10-0400 Systolic blood imoncbxq267 mm[Hg]Sinan Murguia [facility]12-14-2021 14:15-0500Body .18 cmThomas Olexa Other [employer] Other 12-14-2021 14:15-0500Body mass index (BMI) [Ratio] 19.26 kg/r5Kacydt Olexa Other [employer] Other 12-14-2021 14:15-0500Body qyifjw81.79 kgThomas Olexa Other [employer] Other 12-07-2021 15:00-0500Body .18 cmThomas Olexa Other [employer] Other 12-07-2021 15:00-0500Body mass index (BMI) [Ratio] 19.39 kg/e0Hkfqgq Olexa Other [employer] Other 12-07-2021 15:00-0500Body ssetmm60.16 kgThomas Olexa Other [employer] Other Encounters Encounter DateEncounter TypeCare ProviderFacilityStart: 03-03-2025 End: 40-10-7063lgztldfncbNV Rakesh R. ChawlaFacility:FTMCStart: 03-03-2025 End: 59-95-4406Seoazvm encounter procedureRaza Morel [facility] Start: 02-25-2025 End: 57-89-1101sjksvqlzxpJDD Jodi L SchwabFacility:[facility] BellevueStart: 02-15-2025 End: 49-32-1191yxizobirakII Raza MorelFacility:FTMCStart: 02-07-2025 End: 91-86-1829wcpdmbfhcaDJ Rakesh R. ChawlaFacility:FTMCStart: 02-07-2025 End: 77-74-4682Ttvffww encounter procedureRaza Morel [facility] Start: 11-19-2024 End: 65-79-3320pvzxrnreikKLK Jodi L SchwabFacility:[facility] BellevueStart: 09-27-2024 End: 21-14-5693qmfozjnhxkDHN KRISTEL VASQUESFacility:[facility] BellevueStart: 08-06-2024 End: 34-42-9462kvzixguzvbAZ Gaetano AbrahamFacility:FTMCStart: 08-06-2024 End: 04-24-1735Kicwkri encounter procedureGaetano Abraham [facility] Start: 06-01-2024 End: 21-77-7249Vkxcva follow up visit related to original Lizzette Nguyen DO Work Phone: [facility] JUANSt. 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 Start: 05-26-2024 End: 80-82-8308dteodibjhlIqbq S BiedenbachFacility:FTMCStart: 05-18-2024 End: 21-09-6304vcdvmwtcldFBTF S BIEDENBACHNot AvailableStart: 05-18-2024 End: 45-64-3542Keiwjk outpatient visit 25 minutesPaul S Biedenbach DO Work Phone: [facility] ENT NORWALKComment on above:Squamous cell carcinoma of skin of face (Primary Dx); Chronic anticoagulationStart: 05-18-2024 End: 21-03-9453Vhekdu flowsheetPaul S Biedenbach DO Work Phone: [facility] NORWALKStart: 05-18-2024 End: 98-25-7670Gcemib flowsheetPaul S Biedenbach DO Work Phone: [facility] NORWALKStart: 05-07-2024 End: 08-26-0351zagabzbzxeAlrvan A BradyFacility:FTMCStart: 05-07-2024 End: 18-20-9130Wjsxvgg encounter procedureThomas A Abreu [facility] Start: 04-23-2024 End: 79-04-3901Zcjvflpfx to same day surgery Satya Mason [facility] Start: 04-23-2024 End: 81-31-9535ajpaeazspfUtdgKerline MasonFacility:FTMCStart: 04-22-2024 End: 09-14-5652bsozqqnnlzEfxn D. ChristoffersonFacility:FTMCStart: 04-22-2024 End: 21-41-0887Bycjsce encounter Daisha Mason [facility] Start: 04-16-2024 End: 93-45-8796swvkulmypeYwcfKerline TrejoersonFacility:FTMCStart: 04-16-2024 End: 40-73-3704Yhzrdyw encounter Daisha Mason [facility] Start: 04-06-2024 End: 57-21-1318mmogysteqmQVOWX A PETITTINot AvailableStart: 03-24-2024 End: 45-44-1040iemqjyikmlSygc L SchwabFacility:[facility] BellevueStart: 03-04-2024 End: 31-49-5065lcxkvjsqzsRqsd L SchwabFacility:FTMCStart: 03-04-2024 End: 33-15-3676Cueyvxn encounter procedureNapoleon Mason [facility] Start: 03-03-2024 End: 04-70-0892vwryxudjsvLruk L SchwabFacility:[facility] BellevueStart: 03-03-2024 End: 57-17-7049Udrswttrn Result EncounterMohamed Delia Murguia MD Work Phone: [facility] External Department UnsolicitedStart: 03-03-2024 End: 83-91-1310Hvcplndun Result EncounterMohamed Delia Murguia MD Work Phone: [facility] External Department UnsolicitedStart: 01-26-2024 End: 74-19-8492Feh-admission assessmentMohamed Bambi Murguia [facility] Start: 12-29-2023 End: 29-08-9316Ytmfkvguly and management of inpatientMichael Hernandez [facility] Start: 12-17-2023 End: 89-51-3731Hybyrun encounter procedureMosuresh Murguia [facility] Start: 12-08-2023 End: 99-83-9554Zslfrvv encounter procedureMosuresh Murguia [facility] Start: 02-27-2023 End: 07-49-6649Ofdxovt encounter procedureMosuresh Murguia [facility] Start: 01-27-2023 End: 08-19-5768Rkksupr encounter procedureMosuresh Murguia [facility] Start: 12-25-2022 End: 47-62-7268Wnt Drop offJodi L Raina [facility] Start: 12-24-2022 End: 73-41-9752qgznqitehjQBVE L SCHWABFacility:A2Wdbch: 08-27-2022 End: 94-37-1154ngbjklfhitQR JANI NGUYENFacility:Q0Nlyms: 07-08-2022 End: 91-90-7938schhteznpvWX DOUGLAS KRISHNAMURTHY .Facility:Q5Yrrki: 05-25-2022 End: 51-94-3568hoyhncpennWC TETE GAUTHIERFacility:U8Bjcgg: 09-11-2021 End: 60-86-4046szklsjrqzpQlsowz Olexa Other [facility] Other Start: 42-84-9219Tlnwvo outpatient visit 15 minutes Otto Venecia [facility] BellevueStart: 09-04-2021 End: 28-09-4005lofqnrmqazSjzqhl Olexa Other noSyr[employer] Other Start: 75-92-9463Ffgtxr outpatient new 30 minutes Otto GuilloryDEEPALITabitha [place] [facility] [place] Procedures DateProcedureProcedure DetailPerforming ClinicianStart: 03-81-3973Haycjhhtvlwq coronary interventionRaaura Maria Teresa Comment on above:RCA stent u8Vfvmo: 35-61-3339Tgwwktc of percutaneous transluminal coronary angioplastyRaza Morel Start: 81-64-9081Pxhqmrch of lesion of skinPaul Wendy start: 66-95-3472Njeojvyhhbxxqqq of left heartRyan Marlon Start: 95-29-7184Zzhmnhgcvrng coronary interventionRyan Marlon Comment on above:1 stent to LADStart: 03-03-2024 SEGMENTAL BLOOD PRESSUREMohamed Delia Murguia MD Work Phone: [phone])Start: 79-92-0138Dqhixbrrerm of artery of left lower limbAlexander David Start: 21-10-2138Knrrumzx sectionJodi Raina Plan of Treatment DateCare ActivityDetailAuthorStart: 06-01-2024 End: 72-75-1422Fbgqwie encounter bnkbdiisv87/03/2024 3:45 PM EDT Office Visit [facility] [address] [place] [id number] Jani Nguyen S, DO [address] [place] [address] [facility] ENT NORWALKStart: 29-25-4929Ddgccljgz vaccination Influenza Vaccine (#1)[facility] HealthcareStart: 49-55-9855Qqjvgqxsqjev Vaccine: 65+ Years (1 of 1 - PCV)Pneumococcal Vaccine: 65+ Years (1 of 1 - PCV)[facility] HealthcareStart: 80-66-9783Ivclylgqx for malignant neoplasm of breastMammogram [facility] HealthcareStart: 99-70-5563Gzsofzxoy for malignant neoplasm of cervixNOMS HealthcareStart: 46-82-5215Gnyysopwk for malignant neoplasm of cervixPap Smear [facility] HospitalStart: 82-40-2334Hdzjawruv for malignant neoplasm of colonN[facility]S Healthcare Immunizations Immunization DateImmunizationNotesCare BqmvglfdQctklecg55-19-4246VJVB-TuX-6 (COVID-19) mRNA BNT-162b2 vaxJodi Raina 042-3612Nskhaw-PyxteSt. Charles HospitalComment on above: Result Comment: 2022-12-23: KHE4825-97-1862UUPO-GiG-0 (COVID-19) mRNA BNT-162b2 vaxJodi Raina 626-3933Nitete-CfiezSt. Charles Hospital02-12-2021 SARS-CoV-2 (COVID-19) mRNA BNT-162b2 vaxJodi Raina [phone]-EawsvSt. Charles Hospital10-17-2007 influenza virus vaccine, whole virusPaul Biedenbach DO Work Phone: [facility] HospitalVkwmmrwbkx56-20-4510nscfiyuds, wholeJodi Raina [phone]-BaqkuSt. Charles Hospital10-17-2007 influenza virus vaccine, unspecified formulationPaul Biedenbach DO Work Phone: [facility] HospitalGuerymiwib46-12-7160cwtfbppgk B vaccine, adult dosageJodi Raina [phone]-ZnvzgSt. [facility] Hospital09-02-2005 hepatitis B vaccine, adult dosageJodi Raina [phone]-WupfsSt. [facility] Hospital08-01-2005 hepatitis B vaccine, adult dosageJodi Raina [phone]-OuvinSt. Charles HospitalNEGATED: Highlighted row has not occurred!10-10-2234iizzhhgpx virus vaccine, unspecified formulationJodi Raina [phone]-NdjlgSt. Charles Hospital Payers DatePayer CategoryPayerPolicy [id number] Health Insurance [id number] 2024 [id number] 2020Blue Cross Blue ShieldBCBS ..[id number] .[id number]864.27468-33-5577WhrzMesilla Valley Hospital [id number] 2.0.4.43414[id number] 2.0.1.165268.3.57[id number] 2.0.1.220444.3.57[id number] 2.16.840.1.686174.3.57[id number] 2.16.840.1.327162.3.57[id number] 2.16.840.1.599789.3.57[id number] 2.16.840.1.453734.3.57[id number] 2.16.840.1.053971.3.579.2.56[id number] 2.16.840.1.044265.3.57[id number] 2.16840.1.503268.3.579.[id number] 2.16.840.1.810005.3.57[id number] 2.16.840.1.083815.3.57[id number] 2.16840.1.683679.3.57[id number] 2.16.840.1.214265.3.57[id number] 2.16.840.1.401798.3.57[id number] 2.16.840.1.028882.3.57[id number] 2.16.840.1.095513.3.57[id number] 2.16.840.1.700629.3.57[id number] 2.16.840.1.581807.3.57[id number] 2.16.840.1.161498.3.57[id number] 2..840.1.987565.3.57[id number] 2.16.840.1.111033.3.57[id number] 2.16.840.1.266689.3.579.2.727 Social History DateTypeDetailFacilityStart: 05-18-2024 End: 15-31-9701Nvs Assigned At TriHealthtart: 12-24-2022 End: 29-18-9001Xvvfesr smoking statusLight tobacco smoker (finding)[facility]. Charles HospitalTobao smoking statusSmoker (finding)[facility] HospitalueStart: 44-12-7776Eaergtg smoking statusNeProMedica Defiance Regional Hospitaltart: 84-03-0643Lsfdbmr smoking status NHISNever smoked tobaccoNOMS HealthcareStart: 62-85-2315Uprxcmc use and exposureSmokeless tobacco non-userNOMS HealthcareStart: 05-18-2024 End: 49-96-9324Kaualbe of Social functionNOMS HealthcareStart: 32-39-7553Kue assigned at birthNot on fileNOMS HealthcareSexual OrientationJ.W. [facility] Start: 24-11-0325CsdGowbkp (finding)[facility] HospitalTobacco smoking status NHISTobacco smoking consumption unknownNOMS Healthcare Medical Equipment Procedure CodeEquipment CodeEquipment Original TextEquipment IdentifierDatesPCI Unknown 04/23/24 Non Biological Left Anterior Descending Coronary ArteryFDAStart: 73-04-4970Oavlqdi on above:2.5 mm x 15 mm Xience Shanta Coronary stent to LAD PCI Unknown 04/23/24 Non Biological Left Anterior Descending Coronary ArteryFDA Start: 23-72-0774Acyfxdl on above:2.5 mm x 15 mm Xience Shanta Coronary stent to LADPCI Unknown 04/23/24 Non Biological Left Anterior Descending Coronary Artery FDAStart: 60-85-0459Wizyjbs on above:2.5 mm x 15 mm Xience Shanta Coronary stent to LADPCI Unknown 04/23/24 Non Biological Left Anterior Descending Coronary ArteryFDAStart: 57-96-9837Szdfjla on above:2.5 mm x 15 mm Xience Shanta Coronary stent to LADPCI Unknown 04/23/24 Non Biological Left Anterior Descending Coronary ArteryFDAStart: 17-81-8937Olwwdbm on above:2.5 mm x 15 mm Xience Shanta Coronary stent to LADPCI Unknown 04/23/24 Non Biological Left Anterior Descending Coronary ArteryFDAStart: 29-29-6969Nmrgsco on above:2.5 mm x 15 mm Xience Shanta Coronary stent to LADPCI of RCA Unknown 02/15/25 Non Biological Right Coronary ArteryFDAStart: 83-41-1267Mbjvdjz on above:Prox RCA 3.5q22DZH Start: 00-14-1398Ebezmol on above:3.0x18 Mid RCA Functional Status RyvwRtdhburxzbAxmrodAwexzhgm20-30-6547Gtfjmrnwzx StatusN/[facility]11-08-2024Functional StatusN/[facility]08-28-2024 Functional StatusN/[facility]08-21-2024Functional Status Symptomatic After Exposure to Contagion [facility] 31-09-9664Umhohitkfl StatusRiverside Methodist Hospital07-26-2024Functional StatusN/[facility]06-06-2024Functional StatusN/[facility]04-01-2024Functional StatusN/[facility] 46-86-6509Gphcvphtak StatusRiverside Methodist Hospital06-01-2023Functional [facility]05-01-2023Functional [facility] Clinical Notes 09-04-2021 to 02-15-2025 Note Date & WyhkUehmJlvppjqb04-28-8673 NoteOperative Report Left heart catheterization procedure report DATE OF PROCEDURE: February 15, 2025 DENTAL MANAGER Raza Morel MD [facility] INDICATION: Exertional fatigue; history LAD PCI was [...] and conscious sedation were discussed in detail withthe patient/next of kin/durable power of including the indications, expected outcomes, potential treatment options based upon the results, alternative treatment options and benefits, risks and possible complications associated with the procedure. The patient/next of kin/durable power of expressed an understanding of the information provided and willingness to proceed. Signed, informed consent forthe procedure was obtained for all of the above. DESCRIPTION OF THE PROCEDURE: In the postabsorptive state, the patient was brought to the Adult Cardiac Operational Intelligence Officer and placed on the table. The planned puncture sites/areas were prepped and draped in usual sterile fashion and a safety time-out was performed. Moderate Sedation was given by the Cardiac Operational Intelligence Officer RN. RIGHT RADIAL ARTERY ACCESS: The puncture site was infiltrated with 1% lidocaine. The modified Seldinger technique was performed to access the right radial artery using a 21G needle radial access kit.A wire was threaded into the radial artery followed by upsizing to a 5/6F slender 10cm sheath. Verapamil 2.5 mg was administered into the sheath. The sheath was then flushed with heparinized saline and IV UFH was administered via peripheral IV by the labor relations specialist RN after the catheter crossed into the ascending aorta. Selective left and right coronary artery angiography : Under fluoroscopic guidance, a 6 [place] diagnostic catheter was then advanced over the 0.035 260cm J-tipped guidewire to the level of theaortic valve to engage the left coronary artery. [...] was then pulled back into the ascending a beny for assessment of LV-Ao gradient. The procedure was concluded by removal of all the catheters, wires and sheaths. Accesses were managed as outlined below. No immediate complications COMPLICATIONS: None ESTIMATED BLOOD LOSS: <50cc CONTRAST ADMINISTERED: Please see Adult Cardiac Operational Intelligence Officer Log for further details FINDINGS: SELECTIVE CORONARY [...] plaque in the mid right coronary artery ofat least 80%, both are sites for intervention [...] successful hemostasis achieved. Interventional report: A 6 Ken[place] JR guiding catheter placed the ostium of the right coronary artery. The patient qgvwumug3990's of IV heparin. She has been taking her daily Plavix. There are no missed doses. She receivedfull dose aspirin. ACT was maintained R around [...] portions. She is a heavy smoker. Next (more content not included)... [facility] HospitalComment on above:Result Comment: Electronically Signed By: Raza Morel MD.br\Date and Time Signed: 02/15/25 10:16 EDT 02-15-2025 NoteProgress Note-Physician Airway Assessment: Class II: Visualization of the soft palate, fauces, uvula Airway Abnormalities: none ASA Classification: ASA 2: A patient with mild systemic disease Risks/Benefits of IV Sedation: Have been explained IV Sedation Plan: Patient agrees to IV sedation plan_[facility] Comment on above:Result Comment: Electronically Signed By: Raza Morel MD.br\Date and Time Signed: 02/15/25 08:15 [id number] NotePatient Education Infectious Disease Sinus Infection, Adult A [...] ? Medicines that treat allergies (antihistamines). ? Sbtx-cdb-qvhlbie pain relievers. ??? If caused by bacteria, your doctor may wait to see if you will get better without treatment. You may be given antibiotic medicine if you have: ? A very bad infection. ? A weak body defense system. ??? If caused by growths in the nose, surgery may be needed. Follow these instructions at home: Medicines ??? Take, use, or apply wmvg-rjd-lkuamry and prescription medicines only as told by [...] told by your doctor. You can do thisin the bathroom while a hot shower is [...] cannot use soap and water, use hand radiochemical technician. ??? Do not smoke. Avoid being around [...] infection. ??? If you were prescribed an (more content not included)...[facility]11-08-2024 Evaluation + Plan note Future Scheduled Tests Laboratory* Lipid Panel 08/06/24 [facility] 09-03-2024 History of Present illness Narrative* Jani Nguyen, DO - 06/01/2024 3:45 PM EDT Subjective Patient ID: Maria Em is a 63 y.o. 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 Review of Systems Patient denies any significant discomfort at this time. Describes itching sensation around her sutures. The rest of her review of systems is unchanged. Objective ENT Physical Exam The area of repair is healing quite nicely. Sutures are removed without difficulty. A small area ofthickening posterior to the wound is noted. Possible follicular cyst. Will monitor. Assessment/Plan Diagnoses and all orders for this visit: Squamous cell carcinoma of skin of face Comments: Patient continues to heal well. We will see her back as needed documented in this encounterResearch Belton HospitalStfbynsqki14-29-5573 Hospital Discharge instructions Patient Education 05/26/2024 12:19:31 Skin Lesion Removal(CUSTOM) Skin Lesion Removal Why is this procedure done? Skin lesions are areas of the skin that are not normal. They may look like a lump or bump. Some aremoles or cysts. Warts and skin tags are also skin lesions. Most skin lesions do not cause problems.You may want them removed because of how they look. Some people have them taken off because they are rubbing or a bother. Some lesions are taken off because there may be a sign of cancer. What will the results be? Skin should grow back with normal surface. What happens before the procedure? Your doctor will do an exam and take your history. Talk to the doctor about: All the drugs you are taking. Be sure to include all prescription and jqpy-kjk-swspdav (OTC) drugs,and herbal supplements. Tell the doctor about any drug allergy. Bring a list of drugs you take withyou. Any bleeding problems. Be sure to tell your doctor if you are taking any drugs that may cause bleeding. Some of these are Coumadin , ibuprofen, Aleve (naproxen), or aspirin. Certain vitamins and herbs, such as garlic and fish oil, may also add to the risk for bleeding. You may need to stop these drugs as well. Talk to your doctor about them. Take a bath or shower before the procedure. This will help reduce the amount of germs on your skin. What happens during the procedure? There are a few ways to remove a skin lesion. Your doctor will decide which is the best way to takeoff your lesion. The staff will clean the skin area with the lesion. The doctor will numb the area. You may be givena drug to keep you relaxed and pain free. The doctor may shave the lesion down to the level of your skin. This may be done with a laser. The doctor may burn the lesion off using a special electrical tool. The doctor may use a tool that will freeze the lesion off. The doctor may use a tool with a loop at the end to scrape the lesion. Other lesions, such as possible skin cancers, can be cut out. The wound will be closed with stitches. What happens after the procedure? The wound will be covered with clean bandages. The doctor may send a sample of the lesion for tests to check for skin cancer. Ask your doctor whenyou will have results. You may go home after the procedure. What care is needed at home? Your doctor may give you drugs for pain and infection. Take your drugs as ordered by your doctor. Talk to your doctor about where your skin lesion was removed. Ask your doctor about: When you should change your bandages How to care for your site When you may take a bath or shower Be sure to wash your hands before touching your wound or dressing. What follow-up care is needed? Your doctor may ask you to make visits to the office to check on your progress. Be sure to keep these visits. Your doctor may want to go over the result of your tests. Together you can make a plan for more care. If you have stitches or edison, you will need to have them taken out. Your doctor will often want to do this in 1 to 2 weeks. What problems could happen? Bleeding Infection Scarring Nerve damage Regrowth of lesion Follow Up Care 05/18/2024 16:04:16 With:Jani Nguyen Address:Unknown When: Unknown [facility] 08-28-2024 NotePatient Education - Text Skin Lesion Removal Why is this procedure done? Skin lesions are areas of the skin that are not normal. They may look like a lump or bump. Some aremoles or cysts. Warts and skin tags are also skin lesions. Most skin lesions do not cause problems.You may want them removed because of how [...] Be sure to include all prescription and srgv-ots-cvfetvb (OTC) drugs, and herbal supplements. Tell the [...] for bleeding. You may need to stop thesedrugs as well. Talk to your doctor about them. ? Take a bath or shower before the procedure. This will help reduce the amount of germs on your skin. What happens during the procedure? There are a few ways to remove a skin lesion. Your doctor will decide which is the best way to takeoff your lesion. ? The staff will clean [...] Scarring ? Nerve damage ? Regrowth of lesionZanesville City Hospital08-28-2024 History of Present illness Narrative* Jani Nguyen DO - 05/26/2024 10:30 AM EDT Subjective Patient ID: Maria Em is a 63 y.o. female who presents for No chief complaint on file. HPI Patient presents for excision of squamous cell carcinoma of the right cheek. Review of Systems Previous history of biopsy confirming squamous cell carcinoma of the right cheek. Rest of her review of systems is unchanged. Objective ENT Physical Exam The area of prior biopsy is excised. Frozen section reveals evidence of sun damaged skin and no residual tumor Assessment/Plan Diagnoses and all orders for this visit: Squamous cell carcinoma of skin of face Comments: Area of skin excised with complex repair measuring 3 cm. Follow up in the office as scheduled documented in this encounterResearch Belton [id number] History of Present illness Narrative* Jnai Nguyen DO - 05/18/2024 3:30 PM EDT Subjective Patient ID: Maria Em is a 63 y.o. female who presents for Suspicious Skin Lesion (SCC right cheek) HPI 63-year-old female presents today for evaluation of squamous cell carcinoma of the right cheek. Review of Systems This patient recently underwent tangential biopsy of a skin lesion of the right cheek revealing evidence of squamous cell carcinoma. Presents today to discuss her options regarding treatment. Patientdenies any pain or bleeding in this area. Does continue to notice some elevation of the skin in this region. The rest of her review of systems is negative. Allergies as of 05/18/2024 (No Known Allergies) History reviewed. No pertinent past medical history. Current Outpatient Medications: albuterol (ProAir Digihaler) 90 mcg/act breath-activated inhaler (w/ sensor), 2 puff(s), Inhalation, q4hr w, 18 gm, Refill(s) 3, [facility], 167, cm, 12/08/23 9:25:00 EDT, Height/Length Dosing, 57.4, kg, 12/08/23 9:25:00 EDT, Weight Dosing, Disp: , Rfl: aspirin 81 MG oral suspension, 81mg daily, Disp: , Rfl: atorvastatin (Lipitor) 80 MG tablet, Take 1 tablet by mouth Daily, Disp: , Rfl: clopidogrel (Plavix) 75 MG tablet, Take 1 tablet by mouth Daily, Disp: , Rfl: dilTIAZem SR (Cardizem SR) 60 MG 12 hr capsule, Take 1 capsule by mouth Daily, Disp: , Rfl: isosorbide mononitrate ER (Imdur) 30 MG 24 hr tablet, , Disp: , Rfl: lisinopril 5 MG tablet, Take 1 tablet by mouth Daily, Disp: , Rfl: losartan (Cozaar) 25 MG tablet, Take 1 tablet by mouth Daily, Disp: , Rfl: meloxicam (Mobic) 15 MG tablet, Take 15 mg by mouth, Disp: , Rfl: metoprolol tartrate (Lopressor) 25 MG tablet, Take 1 tablet by mouth in the morning and 1 tablet before bedtime., Disp: , Rfl: nabumetone (Relafen) 750 MG tablet, , Disp: , Rfl: nitroglycerin (Nitrostat) 0.4 MG SL tablet, Place 1 tablet as needed by sublingual route., Disp: , Rfl: montelukast (Singulair) 10 MG tablet, Take 1 tablet (10 mg) by mouth at bedtime., Disp: 30 tablet, Rfl: 11 predniSONE (Deltasone) 50 MG tablet, Take 1 tablet for 5 days, then 1/2 tablet for 4 days. (Patientnot taking: Reported on 05/18/2024), Disp: 9 tablet, Rfl: 0 sucralfate (Carafate) 1 GM/10ML suspension, , Disp: , Rfl: traMADol (Ultram) 50 MG tablet, , Disp: , Rfl: History reviewed. No pertinent surgical history. Social History Socioeconomic History Marital status: Unknown Spouse name: Not on file Number of children: Not on file Years of education: Not on file Highest education level: Not on file Occupational History Not on file Tobacco Use Smoking status: Never Smokeless tobacco: Never Vaping Use Vaping status: Never Used Substance and Sexual Activity Alcohol use: Not on file Drug use: Not on file Sexual activity: Not on file Other Topics Concern Not on file Social History Narrative Not on file Social Determinants of Health Financial Resource Strain: Not on file Food Insecurity: Not on file Transportation Needs: Not on file Physical Activity: Not on file Stress: Not on file Social Connections: Not on file Intimate Partner Violence: Unknown (11/20/2023) Received from [facility] Safety & Environment Fear of Current or Ex-Partner: Not on file Emotionally Abused: Not on file Physically Abused: Not on file Sexually Abused: Not on file Physically or Sexually Abused: Not on file Housing Stability: Not on file Objective ENT Physical Exam General Examination: General overview: Normal, age-appropriate, no evidence of distress Head: Normocephalic, evidence of recent skin biopsy of the right cheek. Area does have some elevation. No ulceration. Eyes: Pupils are equally round and reactive to light and accommodation, extraocular muscles are intact Ears: External ear architecture within normal limits, ear canals are patent, tympanic membranes areintact. Nose: External nose unremarkable, nares patent, septum intact, no evidence of congestion. Oral cavity: Mucosa moist, no evidence of ulcer, mass, or lesion Throat: Clear Neck/thyroid: Neck supple, full range of motion, no cervical lymphadenopathy, no evidence of thyromegaly Lymph nodes: No cervical lymphadenopathy Skin: Warm and dry, no evidence of suspicious lesions, no rash Heart: No jugular venous distention, point of maximal impulse normal Lungs: Good air movement, no audible wheezing, no shortness of breath Chest: Normal shape and expansion Abdomen: Normal, soft, nontender, nondistended Musculoskeletal: Cervical spine normal, full range of motion Extremities: No clubbing, cyanosis, or edema Peripheral pulses: 2+ radial, 2+ carotid Neurologic: Alert and oriented, cranial nerves 2-12 are grossly intact Psych: Alert and oriented, normal affect, no evidence of distress Assessment/Plan Diagnoses and all orders for this visit: Squamous cell carcinoma of skin of face Comments: Recommend wide excision with frozen section and reconstruction At this time, I do recommend wide excision with frozen section and reconstruction utilizing flap and/or skin graft methods. All of the options, risks, and aspects are discussed in depth. The risks include but are not limited to bleeding, infection, poor wound healing, need for further surgery, nerve injury, serous disability, and Patient has had recent stent placement in heart requiring continued blood thinner. We will perform her surgery while on blood thinner. She does understand the increased risk of bleeding as result of this situation. documented in this encounterResearch Belton [id number] NoteProgress Note-Physician Procedure [facility] poss PCI via right radial for angina, known CAD, abnormal stress Patient seen and examined. The risk/benefits of the procedure were thoroughly discussed with patient including specific attention to lack of onsite surgical backup and risk of kandace covid, and the patient agrees to proceed. Airway Assessment: Class I: Visualization of the soft palate, fauces, uvula, anterior and posteriorpillars Airway Abnormalities: none ASA Classification: ASA 2: Mild systemic disease Risks/Benefits of IV Sedation: Have been explained IV Sedation Plan: Patient agrees to IV sedation plan [facility]Result Comment: Electronically Signed By: Napoleon Mason MD\.br\Date and Time Signed: 05/07/24 11:49 [id number] NoteProgress Note-Physician Procedure [facility] poss PCI via right radial Patient seen and examined. The risk/benefits of the procedure were thoroughly discussed with patient including specific attention to lack of onsite surgical backup and risk of kandace covid, and the patient agrees to proceed. Airway Assessment: Class I: Visualization of the soft palate, fauces, uvula, anterior and posteriorpillars Airway Abnormalities: none ASA Classification: ASA 2: Mild systemic disease Risks/Benefits of IV Sedation: Have been explained IV Sedation Plan: Patient agrees to IV sedation [facility] Comment on above:Result Comment: Electronically Signed By: Napoleon Mason MD\.br\Date and Time Signed: 04/28/24 13:49 [id number] Hospital Discharge instructions Patient Education 04/23/2024 10:07:41 CV - Cardiovascular PCI Discharge Instructions (CUSTOM) [place], [place] Cardiovascular PCI DISCHARGE INSTRUCTIONS Diet: Resume pre-procedure diet. Increase water intake the next 2 days to flush dye out of the body. Activity: If radial access: Limit your activity today. Do not operate a vehicle, machinery or power tools. NO LIFTING OVER 3 POUNDS for 3 days. Do not bend your wrist for 24 hours. May resume driving in 24 hours. Let pain/discomfort guide your activity. If you are having pain, stop. No sexual activity for 1 week. Return to the Emergency Room if you have trouble breathing, walking or nausea and vomiting. Medications: Resume pre-procedure medication, unless otherwise directed. Hold the following medications for 48 hours post procedure: Actoplus MetGlucophageGlucophage XR GlucovanceAvandametFortamet Ice-rylsrskqjJopuzhYosv-wcrcyipyr GlumetzaJanumetMetaglip RiometGlycomet Minimal pain, soreness and/or discomfort is expected. If you are prescribed an aspirin and/or antiplatelet (such as Plavix, Brilinta or Effient) do NOT stop taking these medications for any reason without talking to your insurance claims analyst Site Care: Do not remove dressing for 24 hours unless it becomes saturated, then replace. Keep site clean and dry; inspect site daily. Do not use any lotions, powders, or ointments at the groin or wrist site for 1 week. May shower 24 hours after the procedure. Clean site with soap and water. Pat dry and apply band aid. No tub baths, swimming or hot tubs for 3 days. Post Procedure: Soreness and tenderness to the site can last up to one week. Bruising may occur to site. A responsible adult should be with you for the first 24 hours after you arrive home. Keep follow-up appointment. Carry your stent card with you at all times. This provides information about your heart disease forany doctor who cares for you. No smoking for 24 hours as it increases the risk of developing blood clots. If you are interested in smoking cessation, contact [facility] at [phone], ext. [phone]. In the event you are unable to reach your physician, please call [facility] at [phone] and the bench assembler operator will assist you. Seek Medicare Care for: Bleeding: Apply continuous pressure to the site and Call 911. Should the arm or leg become cold, numb, blue or white call your physician immediately. Signs of infection are redness, warmth, swelling, getting more sore, colored drainage, fever or chills Chest pain Blood in your urine or stool Black tarry stools Follow Up Care 04/19/2024 11:49:31 With:Otto Abreu Address: [address] [place] [phone] Business (1) When:05/07/2024 10:15:00 [facility] [id number] NoteCardiology Progress Note Post PCI GDMT: Patient is prescribed DAPT - aspirin 81 mg daily will be sent to pharmacy and pt is already taking Plavix 75mg QD. Patient is already prescribed statin - atorvastatin 80 mg daily. Patient is already prescribed beta jeremiah - metoprolol 25mg BID. Cardiac rehab as outpatient.[facility] Comment on above:Result Comment: Electronically Signed By: Brady COOPER, Otto Lawson\.br\Date and Time Signed: 04/23/24 10:30 [id number] NotePatient Education - Text [place], [place] Cardiovascular PCI DISCHARGE INSTRUCTIONS Diet: ? [...] (such as Plavix, Brilinta or Effient) do NOTstop taking these medications for any reason without talking to your insurance claims analyst Site Care: ? Do not remove dressing [...] you are interested in smoking cessation, contact [facility] at [phone], ext. [phone]. ? In the event you are unable to reach your physician, please call [facility] at [phone] andthe bench assembler operator will assist you. Seek Medicare Care [...] urine or stool ? Black tarry stools ?[facility]07-19-2024 NoteEchocardiology Procedure Exam Date/Time Accession # Ordering Dr. Ware Transthoracic 04/16/2024 08:47 EDT [id number] Marlon YE, Napoleon Mancini CPT code 34005 12572 Reason for Exam (Echo Transthoracic Complete) Abnormal ECG, HTN, PVD I10;Other (please specify) Report Version: 1 Study ID: [id number] [facility] [address] [place] [address] Adult Echocardiogram Report Name: MARIA EM Study Date: 04/16/2024, 7: 15 AM Patient Location: [facility] : 1960 (MM/DD/YYYY) Gender: Female Age: 63 [...] Signed by: Napoleon Mason MD Transcribed by: [facility] Technologist: [facility]07-03-2024 Evaluation + Plan note Future Appointments Appointment Date:04/23/2024 09:00:00 AM Scheduled Provider: Location:FT.[facility] Appointment Type:CV Heart Cath (FT) Appointment Date:04/27/2024 02:15:00 PM Scheduled Provider:Otto Abreu PA-C Location:[facility] Appointment Type:Cardiology Follow Up (FT) Future Scheduled Tests Laboratory* CBC w/ Auto Diff 11/26/23 * Comprehensive Metabolic Panel 11/26/23 * Lipid Panel 11/26/23 * Thyroid Stimulating Hormone 11/26/23 Radiology* CV Cardiovascular 04/23/24 [facility] 04-01-2024 Hospital Discharge instructions Patient Education 12/29/2023 17:54:07 CV - Cardiovascular Discharge Instructions (CUSTOM) [place], [place] CARDIOVASCULAR DISCHARGE INSTRUCTIONS Diet: Resume pre-procedure diet. Increase water intake the next 2 days to flush dye out of the body. Activity: If groin access: Limit activity today. Do not operate a vehicle, machinery or power tools. NO LIFTING OVER 10 POUNDS (a gallon of milk weighs 8 pounds) for 3 days. Limit climbing stairs, bending, squatting and stooping for 3 days. May resume driving in 24 hours. No sexual activity for 1 week. Let pain/discomfort guide your activity. If you are having pain, stop. Return to the Emergency Room if you have trouble breathing, walking or nausea and vomiting. Medications: Resume pre-procedure medication, unless otherwise directed. *Minimal pain, soreness and/or discomfort is expected. *You may take OTC non-steroidal anti-inflammatory to manage discomfort, unless contraindicated. If pain is not controlled with the above medications, contact your physician. Site Care: Do not remove dressing for 24 hours unless it becomes saturated, then replace. Keep site clean and dry; inspect site daily. Do not use any lotions, powders, or ointments at the groin or wrist site for 1 week. May shower 24 hours after the procedure. Clean site with soap and water. Pat dry and apply band aid. No tub baths, swimming or hot tubs for 3 days Post Procedure: Soreness and tenderness to the site can last up to one week. Bruising may occur to site. A responsible adult should be with you for the first 24 hours after you arrive home. Keep follow-up appointment. No smoking for 24 hours as it increases the risk of developing blood clots. If you are interested in smoking cessation, contact [facility] at [phone], ext. [phone]. In the event you are unable to reach your physician, please call [facility] at [phone] and the bench assembler operator will assist you. Seek Immediate Medical Care for: Bleeding: Apply continuous pressure to the site and Call 911. Should the arm or leg become cold, numb, blue or white call your physician immediately. Signs of infection are redness, warmth, swelling, increased tenderness, colored drainage, fever or chills Chest pain Follow Up Care 12/08/2023 15:13:23 With:Sinan Murguia Address: [address] [place] [address] [place] [address]- Business (1) When: Unknown Comments:Office will call you with appointment time for 4 weeks. [facility]04-01-2024 Evaluation + Plan noteExtracted from: Title:Procedure Note Heart & VascularAuthor:Blade YE, Sinan LacyDate:12/29/23 moderate sedation Ordered: nicotine, 21 mg, 1 patch(es), Patch-ER, TransDermal, Daily, NOW, Start date 12/29/23 14:34:00 EDT Future Appointments Appointment Date:01/16/2024 09:15:00 AM Scheduled Provider:Jarad YE, Gaetano Rios [facility] [place] Appointment Type:Cardiology New Patient (FT) Future Scheduled Tests Laboratory* CBC w/ Auto Diff 11/26/23 * Comprehensive Metabolic Panel 11/26/23 * Lipid Panel 11/26/23 * Thyroid Stimulating Hormone 11/26/23 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 Patient was prepped and cortisone injected into the left thumb CMC under sterile conditions Patient tolerated well with no adverse reactions. If no improvement, may consider following up with Dr Mugnuia, hand surgeon, for further evaluation and treatment options. 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 Discussed treatment as oral/topical NSAIDs, bracing for activities, cortisone injection to the joint. Also discussed referral to our hand specialist if needed in the future for potential surgical options. Patientwas prepped and cortisone injected into the right thumb CMC joints under sterile conditions. Patient tolerated well with no adverse reactions. If patient has a good response, may consider cortisone injection to the left hand anytime. Aug, 1Pain in right hand (ICD-10 - M79.641) Aug, ain in left hand (ICD-10 - M79.642) [facility] Other Evaluation + Plan note No data available for this section [facility] Future Appointments Appointment Date:02/27/2023 03:00:00 PM Scheduled Provider:Sinan Murguia MD [facility] Type:Vascular Follow Up (FT) Future Scheduled Tests Radiology* US LE Venous Duplex Insufficiency Bilat 01/27/23 * US PVR Lower EXT Complete Bilat 01/27/23 [facility] Future Appointments Appointment Date:12/26/2023 01:30:00 PM Scheduled Provider:Napoleon Mason MD Location:[facility] Appointment Type:Cardiology New Patient (FT) Appointment Date:12/26/2023 02:00:00 PM Scheduled Provider: Location:[facility] Appointment Type: Nurse Visit Appointment Date:12/29/2023 12:00:00 PM Scheduled Provider: [facility] Type:CV Angiogram (FT) Future Scheduled Tests Laboratory* Basic Metabolic Panel 12/09/23 * CBC w/ Auto Diff 12/09/23 * CBC w/ Auto Diff 11/26/23 * Comprehensive Metabolic Panel 11/26/23 * Lipid Panel 11/26/23 * Thyroid Stimulating Hormone 11/26/23 Radiology* CV Peripheralvascular 12/29/23 [facility] Future Appointments Appointment Date:12/26/2023 01:30:00 PM Scheduled Provider:Napoleon Mason MD [facility] Appointment Type:Cardiology New Patient (FT) Appointment Date:12/26/2023 02:00:00 PM Scheduled Provider: Location:[facility] Appointment Type: Nurse Visit Appointment Date:12/29/2023 12:00:00 PM Scheduled Provider: Location[facility] Appointment Type:CV Angiogram (FT) Future Scheduled Tests Laboratory* CBC w/ Auto Diff 11/26/23 * Comprehensive Metabolic Panel 11/26/23 * Lipid Panel 11/26/23 * Thyroid Stimulating Hormone 11/26/23 Radiology* CV Peripheralvascular 12/29/23 [facility] Future Appointments Appointment Date:02/27/2024 09:15:00 AM Scheduled Provider:Gaetano Abraham MD [facility] [place] Appointment Type:Cardiology New Patient (FT) Future Scheduled Tests Laboratory* CBC w/ Auto Diff 11/26/23 * Comprehensive Metabolic Panel 11/26/23 * Lipid Panel 11/26/23 * Thyroid Stimulating Hormone 11/26/23 [facility] Future Appointments Appointment Date:03/24/2024 11:20:00 AM Scheduled Provider:Saray Staley Location:[facility] Appointment Type:FM Open Appointment Date:04/15/2024 01:45:00 PM Scheduled Provider:Otto Abreu PA-C [facility] Type:Cardiology Follow Up (FT) Future Scheduled Tests Laboratory* CBC w/ Auto Diff 11/26/23 * Comprehensive Metabolic Panel 11/26/23 * Lipid Panel 11/26/23 * Thyroid Stimulating Hormone 11/26/23 Radiology* NM Myocardial Spect Rest/Stress 1 Day 03/04/24 * Echo Transthoracic Complete 03/04/24 [facility] Future Appointments Appointment Date:04/27/2024 02:15:00 PM Scheduled Provider:Otto Abreu PA-C [facility] Type:Cardiology Follow Up (FT) Future Scheduled Tests Laboratory* CBC w/ Auto Diff 11/26/23 * Comprehensive Metabolic Panel 11/26/23 * Lipid Panel 11/26/23 * Thyroid Stimulating Hormone 11/26/23 [facility] Future Appointments Appointment Date:05/07/2024 10:15:00 AM Scheduled Provider:Otto Abreu PA-C [facility] Type:Cardiology Follow Up (FT) Future Scheduled Tests Laboratory* CBC w/ Auto Diff 11/26/23 * Comprehensive Metabolic Panel 11/26/23 * Lipid Panel 11/26/23 * Thyroid Stimulating Hormone 11/26/23 [facility] evaluation + Plan note Future Appointments Appointment Date:08/03/2024 03:45:00 PM Scheduled Provider:Otto Aberu PA-C [facility] Type:Cardiology Follow Up (FT) Future Scheduled Tests Laboratory* CBC w/ Auto Diff 11/26/23 * Comprehensive Metabolic Panel 11/26/23 * Lipid Panel 11/26/23 * Thyroid Stimulating Hormone 11/26/23 [facility] evaluation + Plan note Future Appointments Appointment Date:12/03/2024 09:00:00 AM Scheduled Provider:Gaetano Abraham MD [facility] [place] Appointment Type:Cardiology Follow Up (FT) Future Scheduled Tests Laboratory* CBC w/ Auto Diff 11/26/23 * Comprehensive Metabolic Panel 11/26/23 * Lipid Panel 08/06/24 * Lipid Panel 11/26/23 * Thyroid Stimulating Hormone 11/26/23 [facility] evaluation + Plan note Future Appointments Appointment Date:09/01/2025 03:45:00 PM Scheduled Provider:Raza Morel MD [facility] Type:Cardiology Follow Up (FT) Future Scheduled Tests Laboratory* Basic Metabolic Panel 02/08/25 * CBC w/ Auto Diff 02/08/25 * Lipid Panel 08/06/24 [facility] evaluation note* Diagnosis Squamous cell carcinoma of skin of face- Primary Other malignant neoplasm of skin of other and unspecified parts of face Chronic anticoagulation Encounter for long-term (current) use of anticoagulants [facility] Diagnosis Squamous cell carcinoma of skin of face- Primary Other malignant neoplasm of skin of other and unspecified parts of face documented [facility] Diagnosis Squamous cell carcinoma of skin of face- Primary Other malignant neoplasm of skin of other and unspecified parts of face documented in this encounter [facility] Narrative - Reported* Type Description Date Medical History minor heart attack Surgical HistoryC sectionHospitalization HistorychildbirthHospitalization Historyminor heart attack [facility] [employer] Other Hospital Discharge instructions No data available for this section [facility] No data available for this section [facility] HospitalReason for referral (narrative) Referred by: Otto Abreu PA-C [facility] Summary Purpose Family History No Family History Records Found No data available for this section No data available for this section No data available for this section No data available for this section No data available for this section No data available for this section No data available for this section No data available for this section No data available for this section No data available for this section No Family History Records Found No data available for this section No Family History Records Found No data available for this section No Family History Records Found No data available for this section No Family History Records Found Advance Directives No Advanced Directives Records FoundNo Advanced Directives Records FoundNo Advanced Directives Records FoundNo Advanced Directives Records FoundNo Advanced Directives Records Found Additional Source Comments REASON FOR VISIT (unrecogniz ed section and content) ReasonCommentsSuspicious Skin LesionSCC right cheekReasonCommentsPost-op Patient Care team informatio n (unrecognized section and content) Team MemberRelationshipSpecialtyStart DateEnd Date Nathan Navarro MD [address] [place] [address] PCP - GeneralInternal Medicine05/18/24 Raimundo Leon MD [address] [place] [address] Referring PhysicianDermatology05/18/24 Jani Nguyen DO [address] [place], [place] [id number] Otolaryngology05/18/24Team MemberRelationshipSpecialtyStart DateEnd Date Nathan Navarro MD [address] [place] [address] PCP - GeneralInternal Medicine05/18/24 Raimundo Leon MD [address] [place] [address] Referring PhysicianDermatology05/18/24 Jani Nguyen DO [address] [place] [address] Otolaryngology05/18/24Team MemberRelationshipSpecialtyStart DateEnd Date Brii March MD [address] [place] [address] PCP - Generalmily Medicine05/20/24 Raimundo Leon MD [address] [place] [address] Referring PhysicianDermatology05/18/24 Jani Nguyen DO [address] [place] [address] Otolaryngology05/18/24Team MemberRelationshipSpecialtyStart DateEnd Date Brii March MD [address] [place] [address] PCP - GeneralFamily Medicine05/20/24 Raimundo Leon MD [address] [place] [address] Referring PhysicianDermatology05/18/24 Jani Nguyen, [address] [place] [address] Otolaryngology05/18/24Team MemberRelationshipSpecialtyStart DateEnd Date Brii March MD [address] [place] [address] PCP - GeneralChanning Home Medicine05/20/24 Raimundo Leon MD [address] [facility] [address] [place] [address] Referring PhysicianDermatology05/18/24 Jani Nguyen, [address] [place] [address] Otolaryngology05/18/24 INFORMATION SOURCE (unrecogn ized section and content) DATE CREATED AUTHOR 01/01/2023 [facility] DATE CREATED AUTHOR AUTHOR'S ORGANIZ ATION 06/02/2024 [facility] DATE CREATED AUTHOR AUTHOR'S ORGANIZ ATION 08/08/2024 [facility] DATE CREATED AUTHOR AUTHOR'S ORGANIZ ATION 03/02/2025 [facility] DATE CREATED AUTHOR AUTHOR'S ORGANIZ ATION 03/14/2025 [facility] FOR RECORDS PERTAINING TO PATIENTS WHO ARE OR HAVE BEEN ENROLLED IN A CHEMICAL DEPENDENCY/SUBSTANCEABUSE PROGRAM, SOME INFORMATION MAY BE OMITTED. This clinical summary was aggregated from multiple sources. Caution should be exercised in using it in the provision of clinical care. This summary normalizes information from multiple sources, and as a consequence, information in this document may materially change the coding, format and clinical context of patient data. In addition, data may be omitted in some cases. CLINICAL DECISIONS SHOULD BE BASED ON THE PRIMARY CLINICAL RECORDS. [facility] [employer] [facility]. provides no warranty or guarantee of the accuracy or completeness of information in this document.
--- OUTSIDE RECORDS SUMMARY | 2025-07-31 21:34 | XMS_ITS | Encounter Summary ---
Author Organization [facility] Address [address] [place] [address] Care Team Providers Care Plaster Caster Name Role Phone Анна Leon MD Unavailable [phone] Jani Lange DO Unavailable [phone] Juan Raaz MD Primary Care Provider [phone] Encounter Details DateTypeDepartmentCare Team (Latest Contact Info)Zliywggbsax42/05/2024Clinisync Result Encounter [facility] Unsolicited Sinan Murguia MD [address], [address] [address] Social History Tobacco UseTypesPacks/DayYears UsedDateSmoking Tobacco: Never Assessed CommentsUnknownSex and Gender InformationValueDate RecordedSex Assigned at Not on fileLegal RdoHaarld22/15/2023 7:00 PM EDTGender IdentityNot on fileSexual OrientationNot on filedocumented as of this encounter Plan of Treatment Not on file documented as of this encounter Procedures Procedure NamePriorityDate/TimeAssociated DiagnosisCommentsSEGMENTAL BLOOD EILRRWDA53/05/2024 2:27 PM EDT documented in this encounter Results * SEGMENTAL BLOOD PRESSURE (03/03/2024 2:27 PM EDT)Anatomical RegionLaterality ModalityRadiographic ImagingSpecimen (Source)Anatomical Location / Laterality Collection Method / VolumeCollection TimeReceived Time03/03/2024 2:27 PM EDT Narrative 03/03/2024 10:22 PM EDT [facility] ?[address] ? [place] [address] ? Cardiology Report ? Signed ? Patient: ACOSTA,BETO L ?MR#: [id number] ?? : 1960 ?Acct:[id number] ?? Age/Sex: 63 / F ?ADM Date: 06/05/24 ?? Loc: CARD ? Attending Dr: Sinan Murguia M.D. ? Ordering Physician: Sinan Murguia M.D. ?? Date of Service: 03/03/24 ?? Procedure(s): CA segmental UE or LE RADHA ?? Accession Number(s): [id number] ? cc: Sinan Murguia M.D.; SARAY PARIS ?[facility] ? Test Date: ?2024-03-03 ?? Pat Name: ? BETO ACOSTA ? Department: ? Room: ? - ?? Gender: ? Female ? Mast Maker: ?? Gardenia Wynn ?? : ?1960 ? Requested By: 1894 ?? Order Number: [id number] ?Reading MD: ?? RALPH ??BALL ? Interpretive Statements ?? Monophasic doppler waveforms of the LLE. ?? PVR waveforms with delayed upstroke, blunted amplitude and loss of dicrotic ?? notch in the LLE. ?? Right: ?? - no significant pressure gradient between cuffs ?? - normal SIMRAN ?? Left: ?? - significant pressure gradient between the thigh and calf cuff ?? - significant pressure gradient between the calf and DP cuff ?? - abnormal SIMRAN and TBI ? Impression: ?? - normal arterial evaluation of the right lower extremity, without ?? hemodynamic impairment of the right lower extremity at rest. (right SIMRAN 1.14) ?? - significant left femoropopliteal and outflow (tibioperoneal) arterial ?? disease with moderate-severe hemodynamic impairment of the left lower ?? extremity at rest. (left SIMRAN 0.58) ? Electronically Signed On 03-03-2024 22:22:10 EDT by RALPH ??MERLE ? Dictated By: ?Ralph Bloom D.O. ? Signed By: ?03/03/242221 ?03/03/242221 ? DD/ 1427 ? TD/TT: ? Bakery Decorator: Procedure Note Radiology, Radiologist, - 03/03/2024 [place] [address] Cardiology Report Signed Patient: BETO ACOSTA LMR#: [id number] : 1960cct:[id number] Age/Sex: 63 / FADM Date: 03/03/24 Loc: CARD Attending Dr: Sinan Murguia M.D. Ordering Physician: Sinan Murguia M.D. Date of Service: 03/03/24 Procedure(s): CA segmental UE or LE RADHA Accession Number(s): [id number] cc: Sinan Murguia M.D.; SARAY PARIS [facility] Test Date: 2024-03-03 Pat Name: BETO ACOSTA Department: Room: - Gender: Female Mast Maker: Gardenia Wynn : 1960 Requested By: 1894 Order Number: [id number] Reading MD: RALPH BLOOM Interpretive Statements Monophasic doppler waveforms of the LLE. PVR waveforms with delayed upstroke, blunted amplitude and loss ofdicrotic notch in the LLE. Right: - no significant pressure gradient between cuffs - normal SIMRAN Left: - significant pressure gradient between the thigh and calf cuff - significant pressure gradient between the calf and DP cuff - abnormal SIMRAN and TBI Impression: - normal arterial evaluation of the right lower extremity, without hemodynamic impairment of the right lower extremity at rest. (right ABI1.14) - significant left femoropopliteal and outflow (tibioperoneal) arterial disease with moderate-severe hemodynamic impairment of the left lower extremity at rest. (left SIMRAN 0.58) Electronically Signed On 03-03-2024 22:22:10 EDT by RALPH BLOOM Dictated By: Ralph Bloom D.O. Signed By:03/03/24222103/03/242221 DD/ 1427 TD/TT: Bakery Decorator: Authorizing ProviderResult TypeResult StatusMohamed Delia Murguia MDIMG XR PROCEDURES Final Result documented in this encounter Visit Diagnoses Not on filedocumented in this encounter Care Teams Team MemberRelationshipSpecialtyStart DateEnd Date Juan Raza MD [address] [place] [address] PCP - GeneralFamily Medicine05/20/24 Анна Leon MD [address] [place] [address] Referring PhysicianDermatology05/18/24 Jani Lange DO [address] [place] [address] Otolaryngology05/18/24documented as of this encounter
--- OUTSIDE RECORDS SUMMARY | 2025-07-31 21:35 | XMS_ITS | Clinical Summary ---
Author Organization [facility] Address [address] [place] [address] Care Team Providers Care Assistant Grocery Store Manager Name Role Phone Poornima Krishnamurthy MD Primary Care Provider [phone] Social History Tobacco UseTypesPacks/DayYears UsedDateSmoking Tobacco: Never AssessedUT Safety & EnvironmentAnswerDate RecordedFear of Current or Ex-PartnerNot on file 11/20/2023Emotionally AbusedNot on file11/20/2023hysically AbusedNot on file 11/20/2023Sexually AbusedNot on file4Physically or Sexually AbusedNot on file11/20/2023CommentsUnknownSex and Gender InformationValueDate RecordedSex Assigned at BirthNot on fileLegal WsbOnpeyx83/29/2022 11:01 PM EDT Gender IdentityNot on fileSexual OrientationNot on file Last Filed Vital Signs Vital SignReadingTime TakenCommentsBlood Yghrgfzc978/7809 3:56 PM EDT Pulse--Temperature--Respiratory Rate--Oxygen Uglcloqzuw54%06/06/2021 3:56 PM EDT Inhaled Oxygen Concentration--Bqwfql63.3 kg (122 lb)06/06/2021 3:53 PM EDTHeight 170.2 cm (5' 7 )06/06/2021 3:53 PM EDTBody Mass Index19.11006/06/2021 3:53 PM EDT Plan of Treatment Health MaintenanceDue DateLast DoneCommentsCT Zzffjaxjzgwf1960Colonoscopy 1960Colorectal Cancer Pkgrlawaa1958FIT-DNA1960FIT1960 FOBT1960 9867Wtjwyaybyqyzs1958Depression Djsaocotu05/29/1970Pneumococcal Vaccine: 50+ Years (1 of 2 - PCV)1977Adult Ftxosst9407/27/1980Mammogram 1998Zoster Vaccines (1 of 2)2008Fall Risk Jynuqxvht95/29/2023OVID- 19 Vaccine (1 - season)2025Influenza Vaccine (#1)2025HIB VaccinesAged OutNo longer eligible based on patient's age to complete this topic HPV VaccinesAged OutNo longer eligible based on patient's age to complete this topicIPV VaccinesAged OutNo longer eligible based on patient's age to complete this topicMeningococcal B VaccineAged OutNo longer eligible based on patient's age to complete this topicMeningococcal VaccineAged OutNo longer eligible based on patient's age to complete this topicRotavirus VaccinesAged OutNo longer eligible based on patient's age to complete this topic Insurance MemberSubscriberPlan / Payer (Effective 2020-Present)Name:Maria Acosta Relation to Subscriber:SelfName:Maria Acosta Payer ID:[id number] (NAIC) Type:Not on file Address: [facility] [id number] [place] [id number] Care Teams Team MemberRelationshipSpecialtyStart DateEnd Date Poornima Krishnamurthy MD [address] PCP - [facility] [place]06/05/22
--- OUTSIDE RECORDS SUMMARY | 2025-07-31 21:35 | XMS_ITS | Patient Health Record ---
Author Organization [facility] [place] Address [address] [place] [address] Care Team Providers Care Audio Visual Equipment Rental Clerk Name Role Phone Sonja Grullon Primary Care Provider Unavail Loli Dietrich Unavailable [phone] Allergies No Known Allergies Reason For Referral No Information Social History Tobacco Use: Social History Observation Description Date Details (start date - stop date) Current Smoker NA - NA Tobacco Control (Standard) Question Answer Notes Tobacco use: Current smoker Vital Signs Heart Rate 78 /min 10/21/2024 Lrvlcilyjxs98.3 degrees Ochsyjhayj12/23/5196Gdowylbj99 %10/21/20243129Uqmnwb96 in 10/21/2024 Encounters Encounter Location Date Provider Diagnosis [facility] (PODIAT[facility]) [address] [place] [address] [place] [address] 10/21/2024 Loli Rangel Bunionette of left foot M21.622 and Other enthesopathy of left foot and ankle M77.52 Assessments Encounter Date Diagnosis (ICD Code) Assessment Notes Treatment Notes Treatment Clinical Notes Section Notes 10/21/2024 Other enthesopathy of left foot and ankle (ICD-10 - M77.52) (Bursitis left foot) After verbal consent, the skin of the left lateral foot was cleansed with alcohol. An injection consisting of 0.5 mL lidocaine 1% plain and 0.5 mL betamethasone was injected just lateral to the fifthmetatarsal head via a dorsal approach. The patient tolerated the injection well. The site was dressed with a Band-Aid. 10/21/2024unionette of left foot (ICD-10 - M21.622) The patient is a pleasant 64-year-old female who presents for reevaluation of left tailor's bunion. The patient states last visit she had an injection that provided relief for 6 weeks. She has had pain for 1 to 2 months and requested an injection today. The callus lateral to the fifth metatarsal head was pared today to the patient's satisfaction. We did briefly discuss surgical intervention but she is not interested in pursuing surgery at this time. She may follow-up at her discretion. Plan Of Treatment Pending Test Test Name Order Date XR foot LT min 3V 04/09/2024 Insurance Providers Payer Name Payer Address Payer Phone Subscriber Number Group Number Insured Name Patient Relationship to Insured Coverage Start Date Coverage End Date BCBS OUT OF STATE [address] [place] [address] [id number] Maria Acosta Self - patient is the insured [place] [id number] Millie Acostaelf - patient is the insured Medications Administered Medication Instructions Date of Administration Dosage Notes Betamethasone Acetate 40.5 mLBetamethasone Uyrqxii77/23/48817.5 mL Medical (General) History Medical History History ICD Code heart disease high cholesterolhigh blood pressureSurgical History Surgery Date(Month/Year) 1992
--- OUTSIDE RECORDS SUMMARY | 2025-07-31 21:35 | XMS_ITS | Clinical Summary ---
Author Organization [facility] Address [address] [place] [address] Care Team Providers Care Medical Field Representative Name Role Phone Анна Leon MD Unavailable [phone] Jani Lange DO Unavailable [phone] Juan Raza MD Primary Care Provider [phone] Allergies No known active allergies Medications MedicationSigDispense QuantityRefillsLast FilledStart DateEnd DateStatus montelukast (Singulair) 10 MG tablet Indications:Chronic rhinitisTake 1 tablet (10 mg) by mouth at bedtime. 30 tablet 11003/04/2023ctive predniSONE (Deltasone) 50 MG tablet Indications:Nasal polypTake 1 tablet for 5 days, then 1/2 tablet for 4 days. 9 tablet 05/14/2023ctive aspirin 81 MG oral suspension 81mg dailyActive dilTIAZem SR (Cardizem SR) 60 MG 12 hr capsule Take 1 capsule by mouth DailyActive albuterol (ProAir Digihaler) 90 mcg/act breath-activated inhaler (w/ sensor) 2 puff(s), Inhalation, q4hr w, 18 gm, Refill(s) 3, [facility], 167, cm, 12/08/23 9:25:00 EDT, Height/Length Dosing, 57.4, kg, 12/08/23 9:25:00 EDT, Weight Alnxgr8912/26/2023ctive atorvastatin (Lipitor) 80 MG tablet Take 1 tablet by mouth Daily12/26/2023ctive clopidogrel (Plavix) 75 MG tablet Take 1 tablet by mouth Daily12/26/2023ctive isosorbide mononitrate ER (Imdur) 30 MG 24 hr tablet Active lisinopril 5 MG tablet Take 1 tablet by mouth DailyActive losartan (Cozaar) 25 MG tablet Take 1 tablet by mouth Daily12/26/2023ctive meloxicam (Mobic) 15 MG tablet Take 15 mg by mouth03/03/2024ctive metoprolol tartrate (Lopressor) 25 MG tablet Take 1 tablet by mouth in the morning and 1 tablet before bedtime.Active nabumetone (Relafen) 750 MG tablet Active nitroglycerin (Nitrostat) 0.[address] 1 tablet as needed by sublingual route.Active sucralfate (Carafate) 1 GM/10ML suspension Active traMADol (Ultram) 50 MG tablet Active albuterol HFA 90 mcg/act inhaler Inhale 2 puffs every 4 (four) hours if neededActive Active Problems No known active problems Resolved Problems ProblemNoted DateDiagnosed DateResolved DateChanges in skin vzmsuiy4105/29/2024 05/29/2024hronic lsivbeuf42urrent btsebx75 Overview (05/29/2024): Added secondary to documentation in Social History. Smoking trying to quitEssential nwssqmffymmr05/31/2024 05/29/20247494Ayrdnyu08HyperlipidemiaLeft foot painLeft shoulder painScreening for thyroid nvglawxa73Severe ahxauydpuefh55 Lateral muvskfgpcvsxg15 Overview (05/29/2024): [facility] [id number] DOI 02/28/16 Tobacco dependence ztvfombg91 Overview (05/29/2024): QUIT Coronary zdnjxitzaarhnpu94 Overview (05/29/2024): ME MARCH 2013 NL LEVEF Old myocardial otvivdsofw32cute myocardial infarction of anterior wall Overview (05/29/2024): STENT OF LAD MARCH 2013 Left bundle branch blockGeneralized atherosclerosis 12/04/Heart bpidwr06bnormal results of cardiovascular function ahagayg96 Overview (05/29/2024): EQUIVOCAL ANTERIOR DEFECT Chest painllergic cyzqdpfy89 Immunizations ImmunizationAdministration DatesNext DueHep B, adult08/30/2005,05/31/2005, 04/29/2005Influenza Whole07/15/2007 Social History Tobacco UseTypesPacks/DayYears UsedDateSmoking Tobacco: NeverSmokeless Tobacco: Never Tobacco Cessation:Counseling Given: Not Answered CommentsUnknownSex and Gender InformationValueDate RecordedSex Assigned at BirthNot on fileLegal YatAtflvh96/15/2023 7:00 PM EDTGender IdentityNot on fileSexual OrientationNot on file Last Filed Vital Signs Vital SignReadingTime TakenCommentsBlood Pressure--Pulse--Temperature-- Respiratory Rate--Oxygen Saturation--Inhaled Oxygen Concentration--Olqyqw85.4 kg (120 lb)06/01/2024 3:44 PM HBTHebbpo331.6 cm (5' 6 )06/01/2024 3:44 PM EDTBody Mass Index19.3709 3:44 PM EDT Plan of Treatment Not on file Insurance Care Teams Team MemberRelationshipSpecialtyStart DateEnd Date Juan Raza MD [address] [place] [address] PCP - GeneralFamily Medicine05/20/24 Анна Leon MD [address] [place] [address] Referring PhysicianDermatology05/18/24 Jani Lange DO [address] [place] [address] Otolaryngology05/18/24
--- OUTSIDE RECORDS SUMMARY | 2025-07-31 21:35 | XMS_ITS | Clinical Summary ---
Author Organization [facility] Address [address] [place] [address] Care Team Providers Care Cmo & President Name Role Phone Unavailable Primary Care Provider Unavailabl e Social History Tobacco UseTypesPacks/DayYears UsedDateSmoking Tobacco: Never Assessed CommentsUnknownSex and Gender InformationValueDate RecordedSex Assigned at Not on fileLegal KztDkismr14/02/2012 9:32 AM ESTGender IdentityNot on fileSexual OrientationNot on file Plan of Treatment Not on file
[2025-07-31 21:38] VITALS: BP 149/79; PULSE 107; TEMP 38; O2SAT 96; BMI 21.0
[2025-07-31 21:53] LABS: SARS-CoV-2 Ag NEGATIVE (NEGATIVE)
--- NOTE | 2025-07-31 21:55 | XR_ITS ---
The [address] [address] Patient Name: BETO EM MRN: [id number] date: 1960 Sex: F Assigned Patient Location: ER Current Patient Location: Accession/Order Number: [id number] Exam Date: 07/31/2025 22:31 Report Date: 08/01/2025 07:30 At the request of: CHARLES BOYD MD Procedure: XR chest 1V PORTABLE ERECT CHEST 0228 hours 07/10/2020 CLINICAL HISTORY: cough, fever, nausea, vomiting and headache. COMPARISON: None The heart is within normal limits. There is no vascular congestion. No developing consolidation is seen. There is no effusion or pneumothorax. The osseous structures are intact. XR/XR chest 1V IMPRESSION: NO ACUTE FINDINGS Impression dictated by: Molly Oneill M.D. 08/01/2025 7:30 AM Dictation Location: [place] [address] Electronically authenticated by: [id number] Date: 08/01/2025 07:30
--- NOTE | 2025-07-31 21:56 | ED.GENADUL1 ---
HPI HPI - General Adult General Chief complaint: Fever Stated complaint: FEVER Time Seen by Provider: 07/31/25 21:52 Source: patient Mode of arrival: walk-in Limitations: no limitations History of Present Illness HPI narrative: patient states ill all day with body aches, headaches, myalgia and feels weak. Not short of breath. no abdominal pain or nausea. Daily cigarette smoker Related Data Home Medications ?Medication ?Instructions ?Recorded ?Confirmed albuterol sulfate 90 mcg/actuation 2 puff inhalation Q4H PRN 02/19/25 02/19/25 aerosol inhaler shortness of breath or wheezing aspirin 81 mg tablet,delayed 81 mg PO DAILY 02/19/25 02/19/25 release atorvastatin 80 mg tablet 80 mg PO DAILY 02/19/25 02/19/25 clopidogrel 75 mg tablet 75 mg PO DAILY 02/19/25 02/19/25 diltiazem HCl 120 mg 120 mg PO Q24H 02/19/25 02/19/25 capsule,extended release 24 hr losartan 25 mg tablet 25 mg PO DAILY 02/19/25 02/19/25 metoprolol tartrate 25 mg tablet 25 mg PO Q12H 02/19/25 02/19/25 montelukast 10 mg tablet 10 mg PO DAILY 02/19/25 02/19/25 nicotine (polacrilex) 2 mg gum 2 mg PO Q2H PRN nicotine cravings 02/19/25 02/19/25 Allergies Allergy/AdvReac Type Severity Reaction Status Date / Time No Known Drug Allergies Allergy Verified 07/31/25 21:38 Opioid HPI Opioid Management Most Recent Opioid Data: Last Pain Scale 5 07/31/25, 21:38 Review of Systems ROS Status of ROS 10 or more systems reviewed and unremarkable except as noted in history and below PFSH PFS Social History Little interest or pleasure in doing things: not at all Feeling down, depressed, or hopeless: not at all Exam Constitutional Vital Signs, click to edit/add: Last Vital Signs Temp 98.6 F 08/01/25 01:02 Pulse 81 08/01/25 01:02 Resp 18 08/01/25 01:02 BP 119/57 08/01/25 01:02 Pulse Ox 96 08/01/25 01:02 O2 Del Method Room Air 08/01/25 01:02 O2 Flow Rate 2 07/31/25 23:26 Common normals: no apparent distress, average body habitus, oriented x3, no limitations, healthy appearing, alert and well nourished [facility] Common normals: normocephalic and head/scalp atraumatic Eye Common normals: PERRL, EOMs intact bilaterally and conjunctivae normal Respiratory Common normals: normal respiratory effort, no retractions, no use of accessory muscles and clear to auscultation bilaterally Cardio Common normals: S1 normal heart sound and S2 normal heart sound Rate: tachycardic GI Common normals: Normal to inspection, nondistended, normoactive bowel sounds present, soft to palpation and non-tender Extremity Common normals: normal to inspection and full ROM Neuro Common normals: oriented x3, CN's II-XII intact bilaterally and moves all extremities Psych Appearance: grossly normal Course Vital Signs Vital signs: Vital Signs Temperature 100.4 F 07/31/25 21:38 Pulse Rate 107 H 07/31/25 21:38 Respiratory Rate 20 07/31/25 21:38 Blood Pressure 149/79 H 07/31/25 21:38 Pulse Oximetry 96 07/31/25 21:38 Oxygen Delivery Method Room Air 07/31/25 21:38 Temperature 98.6 F 08/01/25 01:02 Pulse Rate 81 08/01/25 01:02 Respiratory Rate 18 08/01/25 01:02 Blood Pressure 119/57 08/01/25 01:02 Pulse Oximetry 96 08/01/25 01:02 Oxygen Delivery Method Room Air 08/01/25 01:02 Oxygen Delivery Flow Rate 2 07/31/25 23:26 Medical Decision Making [facility] Narrative Medical decision making narrative: patient presents with gen. myalgia, headache and cough. History of COPD and current smoker. Has dry cough. Low grade fever. Exam unremarkable except for coarse cough. Chest without obvious rhonchi or wheezing. Labs with elevated WBC. COVID 19 and influenza neg. UA without sign of infection. Normal lactic acid and CMP. Patient informed of the working diagnosis of viral syndrome and will treat also for COPD exac. Given dose of solumedrol and zithromax and discharged home with Zpak. Close follow up recommended Lab Data Labs: Lab Results 07/31/25 07/31/25 07/31/25 Range/Units 21:37 22:05 22:49 WBC 15.8 H (4.0-11.0) 10^3/uL RBC 4.08 L (4.20-5.40) 10^6/uL Hgb 9.5 L (12.0-16.0) g/dL Hct 29.7 L (36.0-48.0) % MCV 72.8 L (81.0-99.0) fL MCH 23.3 L (26.7-34.0) pg MCHC 32.0 (29.9-35.2) g/dL RDW 20.5 H (11.0-15.0) % Plt Count 275 (150-450) 10^3/uL MPV 9.5 (9.5-13.5) fL Seg Neuts % (Manual) 95.0 H (43.0-75.0) Lymphocytes % (Manual) 2.0 L (20.5-60.0) % Monocytes % (Manual) 3.0 (1.7-12.0) % Eosinophils % (Manual) 0.0 L (0.9-7.0) % Basophils % (Manual) 0.0 L (0.2-2.0) % Neutrophils # (Manual) 15.01 H (1.4-6.5) 10^3/uL Lymphocytes # (Manual) 0.31 L (1.20-3.80) 10^3/uL Monocytes # (Manual) 0.47 (0.30-0.80) 10^3/uL Eosinophils # (Manual) 0.00 (0.00-0.70) 10^3/uL Basophils # (Manual) 0.00 (0.00-0.10) 10^3/uL Sodium 128 L (136-145) mmol/L Potassium 3.7 (3.5-5.1) mmol/L Chloride 95 L (98-107) mmol/L Carbon Dioxide 20.0 L (21.0-32.0) mmol/L Anion Gap 16.7 BUN 8.0 (7.0-18.0) mg/dL Creatinine 0.59 (0.55-1.02) mg/dL Est GFR ( Amer) >60 (>=60 mL/min/1.73m^2) Est GFR (Non-Af Amer) >60 (>=60 mL/min/1.73m^2) BUN/Creatinine Ratio 13.6 Glucose 101 (74-106) mg/dL Lactate 0.5 (0.4-2.0) mmol/L Calcium 8.7 (8.5-10.1) mg/dL Total Bilirubin 0.6 (0.2-1.0) mg/dL AST 21 (15-37) U/L ALT 24 (14-59) U/L Alkaline Phosphatase 88 (46-116) U/L Troponin I High Sens 7.7 (4.0-51.3) pg/mL Total Protein 6.9 (6.4-8.2) g/dL Albumin 3.8 (3.4-5.0) g/dL Globulin 3.1 g/dL Albumin/Globulin Ratio 1.2 Urine Color (YELLOW) Urine Clarity (CLEAR) Urine pH (5.0-9.0) Ur Specific [place] (1.005-1.025) Urine Protein (NEG/TRACE) mg/dL Urine Glucose (UA) (NEGATIVE) mg/dL Urine Ketones (NEGATIVE) mg/dL Urine Occult Blood (NEGATIVE) Urine Nitrite (NEGATIVE) Urine Bilirubin (NEGATIVE) Urine Urobilinogen (0.2-1.0) EU/dL Ur Leukocyte Esterase (NEGATIVE) Urine RBC (0-2) #/HPF Urine WBC (NONE SEEN) #/HPF Ur Squamous Epith Cells (NONE/RARE) #/LPF Urine Crystals (None Seen) #/HPF Urine Bacteria (NONE SEEN) #/HPF Urine Casts (NONE SEEN) #/LPF Urine Mucus (NONE SEEN) Ur Culture Indicated? Influenza Type A Ag Negative Influenza Type B Ag Negative SARS-CoV-2 Ag (CV2AG) Negative (NEGATIVE) 07/31/25 Range/Units 23:40 WBC (4.0-11.0) 10^3/uL RBC (4.20-5.40) 10^6/uL Hgb (12.0-16.0) g/dL Hct (36.0-48.0) % MCV (81.0-99.0) fL MCH (26.7-34.0) pg MCHC (29.9-35.2) g/dL RDW (11.0-15.0) % Plt Count (150-450) 10^3/uL MPV (9.5-13.5) fL Seg Neuts % (Manual) (43.0-75.0) Lymphocytes % (Manual) (20.5-60.0) % Monocytes % (Manual) (1.7-12.0) % Eosinophils % (Manual) (0.9-7.0) % Basophils % (Manual) (0.2-2.0) % Neutrophils # (Manual) (1.4-6.5) 10^3/uL Lymphocytes # (Manual) (1.20-3.80) 10^3/uL Monocytes # (Manual) (0.30-0.80) 10^3/uL Eosinophils # (Manual) (0.00-0.70) 10^3/uL Basophils # (Manual) (0.00-0.10) 10^3/uL Sodium (136-145) mmol/L Potassium (3.5-5.1) mmol/L Chloride (98-107) mmol/L Carbon Dioxide (21.0-32.0) mmol/L Anion Gap BUN (7.0-18.0) mg/dL Creatinine (0.55-1.02) mg/dL Est GFR ( Amer) (>=60 mL/min/1.73m^2) Est GFR (Non-Af Amer) (>=60 mL/min/1.73m^2) BUN/Creatinine Ratio Glucose (74-106) mg/dL Lactate (0.4-2.0) mmol/L Calcium (8.5-10.1) mg/dL Total Bilirubin (0.2-1.0) mg/dL AST (15-37) U/L ALT (14-59) U/L Alkaline Phosphatase (46-116) U/L Troponin I High Sens (4.0-51.3) pg/mL Total Protein (6.4-8.2) g/dL Albumin (3.4-5.0) g/dL Globulin g/dL Albumin/Globulin Ratio Urine Color Lt. yellow (YELLOW) Urine Clarity Clear (CLEAR) Urine pH 6.5 (5.0-9.0) Ur Specific [place] <=1.005 A (1.005-1.025) Urine Protein Trace (NEG/TRACE) mg/dL Urine Glucose (UA) Negative (NEGATIVE) mg/dL Urine Ketones Trace A (NEGATIVE) mg/dL Urine Occult Blood Negative (NEGATIVE) Urine Nitrite Negative (NEGATIVE) Urine Bilirubin Negative (NEGATIVE) Urine Urobilinogen 0.2 (0.2-1.0) EU/dL Ur Leukocyte Esterase Trace A (NEGATIVE) Urine RBC 0-2 (0-2) #/HPF Urine WBC 2-5 A (NONE SEEN) #/HPF Ur Squamous Epith Cells Few A (NONE/RARE) #/LPF Urine Crystals None seen (None Seen) #/HPF Urine Bacteria Trace A (NONE SEEN) #/HPF Urine Casts None seen (NONE SEEN) #/LPF Urine Mucus None seen (NONE SEEN) Ur Culture Indicated? No Influenza Type A Ag Influenza Type B Ag SARS-CoV-2 Ag (CV2AG) (NEGATIVE) Discharge Plan Discharge Chief Complaint: Fever Clinical Impression: Viral infection, COPD (chronic obstructive pulmonary disease) with acute bronchitis Patient Disposition: Home, Self-Care Prescriptions / Home Meds: No Action clopidogrel 75 mg tablet 75 mg PO DAILY aspirin 81 mg tablet,delayed release (DR/EC) 81 mg PO DAILY diltiazem HCl 120 mg capsule,extended release 24hr 120 mg PO Q24H montelukast 10 mg tablet 10 mg PO DAILY metoprolol tartrate 25 mg tablet 25 mg PO Q12H atorvastatin 80 mg tablet 80 mg PO DAILY albuterol sulfate 90 mcg/actuation HFA aerosol inhaler 2 puff INHALATION Q4H PRN (Reason: shortness of breath or wheezing) losartan 25 mg tablet 25 mg PO DAILY nicotine (polacrilex) 2 mg gum 2 mg PO Q2H PRN (Reason: nicotine cravings) Print Language: Nepalese Instructions: COPD (Chronic Obstructive Pulmonary Disease) (ED), Viral Syndrome (ED) Additional Instructions: follow up with your doctor in the next couple of days for recheck Referrals: Physician,Non-Staff, MD [Primary Care Provider] - 1 week Discharge Date/Time: 08/01/25 02:34
[2025-07-31] MEDS: 0.9 % SODIUM CHLORIDE 1,000 ML 999 ML IV (22:35)
[2025-07-31] MEDS: MORPHINE SULFATE 4 MG/ML VIAL IV (22:35)
[2025-07-31 22:41] VITALS: BP 117/59
[2025-07-31 22:46] VITALS: O2SAT 93
[2025-07-31 22:49] VITALS: O2SAT 99
[2025-07-31 22:56] LABS: Hematocrit 29.7 % (36.0-48.0); Hemoglobin 9.5 g/dL (12.0-16.0); Mean Corpuscular HGB Conc 32.0 g/dL (29.9-35.2); Mean Corpuscular Hemoglobin 23.3 pg (26.7-34.0); Mean Corpuscular Volume 72.8 fL (81.0-99.0); Platelet Count 275 10^3/uL (150-450); Red Blood Count 4.08 10^6/uL (4.20-5.40); White Blood Count 15.8 10^3/uL (4.0-11.0)
[2025-07-31 23:07] LABS: Alanine Aminotransferase 24 U/L (14-59); Albumin Globulin Ratio 1.2; Albumin Level 3.8 g/dL (3.4-5.0); Alkaline Phosphatase 88 U/L (46-116); Aspartate Amino Transferase 21 U/L (15-37); Blood Urea Nitrogen 8.0 mg/dL (7.0-18.0); Calcium 8.7 mg/dL (8.5-10.1); Estimated GFR (African America >60 (>=60 mL/min/1.73m^2); Estimated GFR (Non-African Ame >60 (>=60 mL/min/1.73m^2); Globulin 3.1 g/dL; Glucose 101 mg/dL (74-106); Total Protein 6.9 g/dL (6.4-8.2)
[2025-07-31 23:12] LABS: Lactate/Lactic Acid 0.5 mmol/L (0.4-2.0)
[2025-07-31 23:24] LABS: Anion Gap 16.7; Carbon Dioxide 20.0 mmol/L (21.0-32.0); Chloride 95 mmol/L (98-107); Potassium 3.7 mmol/L (3.5-5.1)
[2025-07-31 23:26] VITALS: BP 132/60; PULSE 83; TEMP 38.2; O2SAT 99
[2025-07-31 23:28] LABS: Sodium 128 mmol/L (136-145)
[2025-07-31 23:33] LABS: Basophils Abs Manual 0.00 10^3/uL (0.00-0.10); Basophils Percent Manual 0.0 % (0.2-2.0); Eosinophils Absolute Manual 0.00 10^3/uL (0.00-0.70); Eosinophils Percent Manual 0.0 % (0.9-7.0); Lymphocytes Absolute Manual 0.31 10^3/uL (1.20-3.80); Lymphocytes Percent Manual 2.0 % (20.5-60.0); Monocytes Absolute Manual 0.47 10^3/uL (0.30-0.80); Monocytes Percent Manual 3.0 % (1.7-12.0); Segmented Neut Absolute Manual 15.01 10^3/uL (1.4-6.5); Segmented Neutrophils % Manual 95.0 (43.0-75.0)
[2025-07-31 23:47] LABS: Glucose Urine UA NEGATIVE (NEGATIVE)
[2025-07-31 23:54] LABS: Cast Seen? NONE SEEN #/LPF (NONE SEEN); Crystals Seen? None Seen #/HPF (None Seen); Urine Culture Indicated NO
[2025-08-01] MEDS: METHYLPREDNISOLONE SOD SUCC PF 125 MG/2 ML VIAL IVP (00:15)
[2025-08-01] MEDS: ACETAMINOPHEN 325 MG TABLET 650 MG PO (00:15)
[2025-08-01] MEDS: 0.9 % SODIUM CHLORIDE 1,000 ML 999 ML IV (00:49)
[2025-08-01 01:02] VITALS: BP 119/57; PULSE 81; TEMP 37; O2SAT 96
[2025-08-01] MEDS: AZITHROMYCIN 250 MG TABLET 500 MG PO (02:17)
== END 2025-08-01 02:34 | disposition home or self-care (01) ==
PROVIDERS: Emergency Provider Internal Medicine
DX: J44.0 Chronic obstructive pulmonary disease with (acute) lower respiratory infection (principal); J20.9 Acute bronchitis, unspecified; B34.9 Viral infection, unspecified; F17.210 Nicotine dependence, cigarettes, uncomplicated; R50.9 Fever, unspecified
CPT/HCPCS: 36415; 71045; 80053; 81001; 83605; 84484; 85007; 85027; 87804; 87811; 96374; 96375; 99284; J2270; J2919